=== PATIENT | female | born 1930 | race Caucasian/White ===

== ENCOUNTER → 2018-03-03 | Outpatient (CLI) | payer MEDICARE, BC ==
--- NOTE | 2018-03-03 10:04 | XR ---
EXAMINATION TYPE: XR chest 2V DATE OF EXAM: 03/03/2018 COMPARISON: NONE HISTORY: Shortness of breath TECHNIQUE: Frontal and lateral views of the chest are obtained. FINDINGS: Scattered senescent parenchymal changes noted. Hyperinflation compatible with COPD. Dual-lead pacer i n place. No evidence for infiltrate. No evidence for atelectasis. Heart size is stable.Mitral annular calcifications noted. Mediastinal structures are stable and grossly unremarkable. No evidence for hilar prominence. Degenerative changes dorsal spine. IMPRESSION: 1. No evidence for acute pulmonary disease.
[2018-03-03 10:18] LABS: Appearance,Urine Clear (Clear); Basophils % (A) 1 %; Bilirubin,Urine Negative (Negative); Blood,Urine Negative (Negative); Color,Urine Light Yellow; Eosinophils # (A) 0.2 k/uL (0-0.7); Eosinophils % (A) 3 %; Glucose,Urine (UA) Negative (Negative); HCT 34.6 % (34.0-46.0); HGB 10.9 gm/dL (11.4-16.0); Hypochromasia Slight; Ketones,Urine Negative (Negative); Leukocyte Esterase,Urine Negative (Negative); Lymphocytes # (A) 1.5 k/uL (1.0-4.8); Lymphocytes % (A) 20 %; MCH 29.2 pg (25.0-35.0); MCHC 31.4 g/dL (31.0-37.0); MCV 93.2 fL (80.0-100.0); Mean Platelet Volume 7.8; Monocytes # (A) 0.4 k/uL (0-1.0); Monocytes % (A) 5 %; Neutrophils # (A) 5.3 k/uL (1.3-7.7); Neutrophils % (A) 71 %; Nitrite,Urine Negative (Negative); Platelet Count 299 k/uL (150-450); Protein,Urine Negative (Negative); RBC 3.71 m/uL (3.80-5.40); RDW 14.4 % (11.5-15.5); Specific Gravity,Urine 1.008 (1.001-1.035); Urobilinogen,Urine <2.0 mg/dL (<2.0); WBC 7.5 k/uL (3.8-10.6)
[2018-03-03 10:19] LABS: Calcium 9.8 mg/dL (8.4-10.2); Potassium 4.6 mmol/L (3.5-5.1)
[2018-03-03 10:35] LABS: Partial Thromboplastin Time 22.6 sec (22.0-30.0); Prothrombin Time 9.9 sec (9.0-12.0)
== END | disposition home or self-care (01) ==
LOC: LABPAT 08:50
PROVIDERS: ATTEND Orthopaedic Surgery Orthopaedic Surgery of the Spine
DX: Z01.818 Encounter for other preprocedural examination (principal); M48.061 Spinal stenosis, lumbar region without neurogenic claudication; Z01.812 Encounter for preprocedural laboratory examination; Z95.0 Presence of cardiac pacemaker
CPT/HCPCS: 36415; 71046; 80048; 81003; 85025; 85610; 85730; 87070; 93005

== ENCOUNTER 2018-03-12 08:56 | Inpatient (IN) | payer MEDICARE, BC ==
[~2018-03-12 08:56] MED LIST: BACITRACIN 50,000 UNIT, POLYMYXIN B 500,000 UNIT in SODIUM CHLORIDE 0.9% IRRIGATIO 1,00... IRRIGATION ONE; LACTATED RINGERS 1,000 ML IV SCH; LIDOCAINE 1% 20 ML VIAL (10MG/ML) FOR IV START INTRADERMA PRN; MORPHINE SULFATE 4MG/4ML SYRG IV PRN; VANCOMYCIN 1,000 MG in SODIUM CHLORIDE 0.9% 250 ML IVPB ONE
[2018-03-12 09:46] LABS: Glucose,Whole Blood 133 mg/dL (75-99)
[2018-03-12] MEDS: ONDANSETRON 4 MG/2 ML VIAL IVP ONE ×2 (09:56→15:15)
--- NOTE | 2018-03-12 12:18 | CONS ---
CONSULTATION An 87-year-old white female that is having a lumbar laminectomy and decompression with internal laminar device T3-4 and L3-L4, L4-L5 with Dr. Quarles after having significant chronic continuous back pain. Her original back pain occurred from a compression fracture which she has suffered pain and disability for a good period of time. She even had rehab on an inpatient basis with this for several weeks. She was recovering well, but was on chronic pain medication and then due to confusion occurring with the use of her Duragesic for her pain and not controlled by other medications accordingly, she became confused to the point that we had to withdraw the medication. Unfortunately, she stayed in a chronic state of pain even with the additional use of occasional nonsteroidal anti-inflammatories and Ultram. She has a long-standing history of aortic insufficiency and pacemaker. She has had a CVA and unfortunately it was from a bleed so at that period of time with an occasional intermittent atrial fib, it was decided not to use Plavix or just basically use aspirin for prevention of further CVA. She has had a long-standing history of hypertension. Her coronary artery disease is related with aortic insufficiency. She has had GE reflux. She has had peptic ulcer disease previously. Her type 2 diabetes is of recent and it is cared for with metformin. She has not had any renal or hepatic disease or has had pulmonary disease. Her social history, she is a basic nonsmoker, nondrinker. 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 MEDICATIONS ARE: That of allopurinol 100 daily, atenolol 50 b.i.d., Tradjenta 5 mg daily, Lipitor 10 daily, Lasix 20 daily, metformin 1000 b.i.d., Prozac 20 b.i.d., terazosin 1 mg daily, potassium chloride 20 daily, lisinopril 20 daily, gabapentin 100 mg t.i.d., Colace 100 daily. Aspirin at this period of time is 325 mg b.i.d., occasional Tylenol twice a day, flecainide 50 mg twice a day. REVIEW OF SYSTEMS: EYES: Pupils, the patient sees well. ENT: She has poor hearing, but she has not have any throat or neck pain. NECK: She is not having neck pain. No problems swallowing. RESPIRATORY: No shortness of breath. No cough. No recent pneumonia. HEART: No palpitations but she does have a pacemaker for bradycardia. She also has a history of aortic insufficiency. GI: No hematemesis, melena or hematochezia. No nausea. Occasional constipation on Colace. NEUROMUSCULAR: Just weakness in her arms or legs and severe lower back pain with radicular pain into her back, which has been ongoing and relentless. CBC and complete metabolic profile has been within normal limits. Chest x-ray is negative and EKG is without acute changes. ASSESSMENT: 1. 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 2. Previous history of compression fracture which is healed but with occasional pain. 3. Longstanding history of aortic insufficiency, being watched by Cardiology at [facility]. 4. Hyperlipidemia. 5. Previous history of cerebrovascular accident, which has been stable. 6. Long-standing hypertension, which is now stable. 7. Intermittent atrial fibrillation. 8. Early dementia. PLAN: I talked with who was taking care of her mainly even though he did do the last evaluation. He feels that she is on moderate cardiac risks for postop complications, probably not secondary from ischemia with a recent negative stress test, but definitely from her aortic insufficiency. Also noted that she had a previous right bundle branch block that has just been noted. His thought processes and I agreed with him is due to her previous CVA. Also have not had , which was which was a bleed and peptic ulcer disease in the past that it would be better to keep her off long-term anticoagulants and just use aspirin twice a day. Follow her cardiac status at this time. She has been in sinus rhythm with no atrial fib. Will follow her accordingly. Postoperative prognosis will be guarded. MMODL / IJN: [id number] /
[2018-03-12] MEDS ORDERED: fentaNYL (PF) 50 MCG/ML 2 ML AMP ONE (12:26)
[2018-03-12] MEDS ORDERED: PROPOFOL 10 MG/ML 20 ML VIAL IV ONE (12:26)
[2018-03-12] MEDS ORDERED: SUCCINYLCHOLINE CHLORIDE 100 MG/5 ML SYR IV ONE (12:26)
[2018-03-12] MEDS ORDERED: LIDOCAINE 1% INJ 10MG/ML (20 ML MDV) ONE (12:26)
[2018-03-12] MEDS ORDERED: MIDAZOLAM 2 MG/2 ML VIAL ONE (12:26)
[2018-03-12] MEDS ORDERED: GELATIN SPONGE,ABSORB (LARGE) 1 EACH SPONGE TOPICAL ONE (12:45)
[2018-03-12] MEDS ORDERED: LIDOCAINE 0.5%-EPI 1:200,000 50 ML VIAL SQ ONE (12:45)
[2018-03-12] MEDS ORDERED: THROMBIN (BOVINE) 5,000 UNIT VIAL TOPICAL ONE (12:45)
[2018-03-12] MEDS ORDERED: methylPREDNISolone ACETATE 40 MG/ML 1 ML VIAL MISCELLANE ONE (13:17)
--- NOTE | 2018-03-12 14:03 | FL ---
Fluoroscopy INDICATION: Pain FINDINGS: Fluoroscopy time: 6 seconds. Images obtained: 1. IMPRESSIONS: 1. Documentation of fluoroscopy.
--- NOTE | 2018-03-12 14:03 | XR ---
Fluoroscopy INDICATION: Pain FINDINGS: Images obtained: 1. IMPRESSIONS: 1. Documentation of fluoroscopy.
[2018-03-12] MEDS ORDERED: ACETAMINOPHEN TAB 500 MG TAB PO PRN (14:24)
[2018-03-12] MEDS ORDERED: ONDANSETRON 4 MG/2 ML VIAL IVP PRN (14:31)
[2018-03-12] MEDS ORDERED: MORPHINE SULFATE 4MG/4ML SYRG IVP PRN (14:31)
[2018-03-12] MEDS ORDERED: MAGNESIUM HYDROXIDE 2,400 MG/10 ML CUP PO PRN (14:31)
[2018-03-12] MEDS ORDERED: DIAZEPAM 5 MG TAB PO PRN (14:31)
[2018-03-12] MEDS ORDERED: BENZOCAINE/MENTHOL LOZENG 1 EACH LOZENGE MUCOUS MEM PRN (14:31)
[2018-03-12] MEDS ORDERED: Acetaminophen-Codeine 300-30mg TAB PO PRN (14:35)
--- NOTE | 2018-03-12 14:41 | P.OP ---
Date of Procedure: 03/12/18 Preoperative Diagnosis: Severe spinal stenosis L3 4 L4 5 Degenerative disc disease L3 4 L4 5 Neurogenic claudication Lower extremity radiculopathy Postoperative Diagnosis: Same Anesthesia: GETA Pathology: none sent Condition: stable Disposition: PACU Description of Procedure: BRIEF OPERATIVE NOTE Preoperative Diagnosis: Severe spinal stenosis L3 4 L4 5, degenerative disc disease L3 4 L4 5, neurogenic claudication, lower extremity radiculopathy Postoperative Diagnosis: Same Procedure: Laminectomy and decompression with wide bilateral foraminotomies L3 4 and L4 5 Placement of the interlaminar stabilization device, Coflex device at L3 4 L4 5 Surgeon: Dr. Quarles Insole Lip Turner: Polo Suarez is present throughout the entire the case persistence during positioning, dissection, exposure, visualization, and all crucial elements of the case as well as closure. Anesthesia: General anesthesia per Dr. Dr. Zamarripa Estimated blood loss: approximately 50 mL Complications: None apparent Components implanted: Coflex interlaminar stabilization device L3 4 and L4-5, each measuring 10 mm Disposition: To recovery room in good stable condition. OPERATIVE INDICATIONS The patient has been having issues in their lower back and lower extremities. she is having severe claudication symptoms due to her severe spinal stenosis at her lumbar spine particularly at L3 4 and L4 5. We discussed various treatment options. The patient has been through conservative treatment. she is not having any prolonged benefit despite aggressive conservative treatment We discussed various treatment options including surgery, ranging from laminectomy alone to the possibility of decompression with stabilization as well as the decompression and fusion. We felt that the patient could benefit with decompression and interlaminar stabilization,and the patient wishes to proceed with surgery We discussed the risk, patient's alternatives and benefits of surgery including but not limited to, risk of bleeding risk of infection, risk of need for further surgery, risk of decreased, loss of motion, loss of function, nerve damage, paralysis, heart attack, blindness and . OPERATIVE SUMMARY After discussing all the risks, patient alternatives and benefits at length, the patient elected to proceed with surgical intervention, signed informed consent, and presented for their procedure. The patient was seen and examined in the preoperative holding area and the surgical site was marked. The patient was given antibiotics and brought to the operating room. The patient was sedated and intubated by anesthesia in standard fashion. The patient was positioned on to the operating room table in a prone position on the appropriate frame which was well-padded and well molded. We were careful to pad any bony prominences and pressure points. We were careful to maintain the patient's cervical spine and good neutral alignment and position throughout. The patient was prepped and draped in a normal standard fashion. An appropriate timeout and keystone protocol performed. We were able to proceed with the surgery. Fluoroscopy was utilized to establish the appropriate level. The local wound area was infiltrated with local anesthetic. An incision was made at the midline longitudinally over the appropriate levels at L3 4 and L4 5. Dissection was taken down subcutaneously to the level of the fascia which was split midline. Dissection was taken over the lamina. Intraoperative fluoroscopy was taken which showed a marker at the appropriate level at L3 4 . With the appropriate level positively confirmed, we were able to proceed with laminectomy. The wound was copiously irrigated and suctioned dry as had been done periodically throughout the case. I performed a laminectomy with a combination of curettes and a high-speed bur and Kerrison rongeurs. A small medial facetectomy was performed again further access. A partial foraminotomy was also performed. Portions of the ligamentum flavum were taken down to expose the dura and traversing nerve root. There is severe thickening of the ligamentum flavum and significant facet hypertrophy with osteophytes causing severe central and bilateral foraminal stenosis. This was remedied with the decompression.There is no evidence of dural tear or leak. Good hemostasis maintained. The wound was copiously irrigated and suctioned dry. Good decompression was noted. This was done first at L34 and L4 5. I was unable to measure the appropriate size interlaminar stabilizing device. I was able get good alignment at the intralaminar spaces. I was able to trial with the appropriate size device and get gentle distraction at each level. I chose he is appropriate size interlaminar stabilizer. The Coflex device was positioned and malleted in place and good alignment good position with good fixation at each level. The construct was checked and found to be stable. There is good decompression without any evidence of dural tear or leak. There is no evidence of fracture. We were able to proceed with closure. The fascia was closed for a watertight closure. The subcuticular tissue was closed with absorbable suture. The wound was cleaned and dried and dressed with the appropriate dressing. The drapes were broken down. The patient was gently rolled back onto their hospital bed being careful to maintain their cervical spine and good neutral alignment and position. They were woken up by anesthesia, extubated, and brought to the recovery room in good stable condition. The patient will be admitted to the hospital for observation and for appropriate postoperative care, medical management and monitoring. We will continue to follow them closely about the postoperative course.
[2018-03-12 15:01] LABS: Glucose,Whole Blood 121 mg/dL (75-99)
[2018-03-12 15:57] VITALS: BMI 25.3
[2018-03-12] MEDS: SODIUM CHLORIDE 0.9% 1,000 ML IV SCH (15:57)
[2018-03-12] MEDS: metFORMIN 500 MG TAB PO SCH (17:44)
[2018-03-12] MEDS: ceFAZolin IN SWFI 2 GM/20 ML SYRINGE IVP SCH ×2 (17:44→23:51)
[2018-03-12] MEDS: PANTOPRAZOLE 40 MG TABLET PO SCH (17:45)
[2018-03-12] MEDS: traMADol-ACETAMINOP 37.5-325MG 1 EACH TAB PO PRN (19:15)
[2018-03-12] MEDS: GABAPENTIN 100 MG CAP PO SCH (19:15)
[2018-03-12] MEDS: METOPROLOL TARTRATE 50 MG TAB PO SCH (19:15)
[2018-03-12] MEDS: FLECAINIDE 50 MG TAB PO SCH (19:15)
[2018-03-12] MEDS ORDERED: DOXAZOSIN 1 MG TAB PO SCH (21:00)
[2018-03-12] MEDS ORDERED: ATORVASTATIN 10 MG TAB PO SCH (21:00)
[2018-03-12] MEDS ORDERED: MORPHINE SULF 5MG/10ML VL IVP ONE (21:30)
[2018-03-13 04:46] VITALS: TEMP 98.7
[2018-03-13] MEDS: traMADol-ACETAMINOP 37.5-325MG 1 EACH TAB PO PRN (07:33)
[2018-03-13] MEDS: metFORMIN 500 MG TAB PO SCH (08:28)
[2018-03-13] MEDS: PANTOPRAZOLE 40 MG TABLET PO SCH (08:29)
[2018-03-13] MEDS: FLECAINIDE 50 MG TAB PO SCH (08:31)
[2018-03-13] MEDS: GABAPENTIN 100 MG CAP PO SCH (08:31)
[2018-03-13] MEDS: METOPROLOL TARTRATE 50 MG TAB PO SCH (08:32)
[2018-03-13] MEDS: SENNOSIDES-DOCUSATE SODIUM 1 EACH TAB PO SCH ×2 (08:33→08:39)
[2018-03-13] MEDS ORDERED: ALLOPURINOL 100 MG TAB PO SCH (09:00)
[2018-03-13] MEDS ORDERED: ASPIRIN 81 MG PO SCH (09:00)
[2018-03-13] MEDS ORDERED: POTASSIUM CHLORIDE ER 10 MEQ TAB.ER.PRT PO SCH (09:00)
[2018-03-13] MEDS ORDERED: LISINOPRIL 20 MG TAB PO SCH (09:00)
[2018-03-13] MEDS ORDERED: LINAGLIPTIN 5 MG TABLET PO SCH (09:00)
[2018-03-13] MEDS ORDERED: FUROSEMIDE 20 MG TAB PO SCH (09:00)
[2018-03-13 09:02] VITALS: BP 159/70; PULSE 69; RESP 18
--- NOTE | 2018-03-13 09:39 | P.DS ---
Providers Date of admission: 03/12/18 08:56 Attending physician: Yolanda Quarles Consults: 03/12/18 14:31 Consult Physician Routine Consulting Provider: Luisito Napoles Consult Reason/Comments: Medical management Do you want consulting provider notified?: Yes Primary care physician: Luisito Napoles Hospital Course: The patient presented on the day of admission as per her operative note. We had concerns about her being able to ambulate mobilize on her own and to be able to perform her own needs and the patient had be discharged to monitor her progress and her mobility as well as her pain control. The patient has been able to get up this morning and use a bathroom. Her pain was controlled adequately overnight with IV medications. We will try to convert over to oral medications this morning and she is doing adequately although these are not quite as effective for her. She feels her legs are doing well. She is having pain in her back as expected. She denies any chest pain short of breath Physical Exam The incision site is clean dry and intact. There is no erythema no drainage. There is no purulence no evidence of infection.There is no active drainage. Dressing has some shadowing but no saturation. Abdomen soft and nontender. Chest has good excursion with deep inspiration and expiration. The patient has active and passive range of motion intact at the upper and lower extremities. There is no acute change in neurologic status.She has sustained dorsal flexion plantarflexion and extensor hallucis longus intact Hospital Course postoperative day #1 status post decompression laminectomy with foraminotomy and partial facetectomy at L34 and L4 5 with placement of interlaminar stabilization at L3 4 and L4 5. The patient has been making good progress postoperatively. she is still moving somewhat slowly but has been able to get up to the bathroom. They have completed the prophylactic antibiotics without any signs or symptoms of infection. The patient has been able to advance their diet, and is tolerating diet adequately. The pain was initially controlled with IV medications and is now controlled appropriately with oral medications. if the patient continues to have adequate control with oral medications she may be able to be discharged home today as long as she is safe with her mobility and ambulation. The patient has been able to increase their mobilizationAdequately thus far . The patient has progressed appropriately. I think they are in good stable condition for discharge today If she continues to make progress with her pain control and her mobility she has been seen by Dr. flynn as well who is in agreement with this. . They will be sent home with appropriate prescriptions. I answered their questions to the best of my ability in a language that they can understand and they are agreeable with the plan. They will follow up as directed In approximately 2 weeks or sooner if she is having any problems. Patient Condition at Discharge: Good Plan - Discharge Summary Discharge Rx Participant: Yes New Discharge Prescriptions: No Action Linagliptin [Tradjenta] 5 mg PO DAILY Furosemide [Lasix] 20 mg PO DAILY Gabapentin [Neurontin] 100 - 200 mg PO BID Acetaminophen [Tylenol Extra Strength] 500 mg PO QID PRN PRN Reason: Pain Terazosin [Hytrin] 1 mg PO HS Allopurinol [Zyloprim] 100 mg PO DAILY metFORMIN HCL 1,000 mg PO BID Atorvastatin [Lipitor] 10 mg PO HS Metoprolol Tartrate [Lopressor] 50 mg PO BID Lisinopril [Zestril] 20 mg PO DAILY Flecainide [Tambocor] 50 mg PO Q12HR Potassium Chloride [K-Tab ER] 10 meq PO DAILY Omeprazole [PriLOSEC] 20 mg PO BID Multivitamins, Thera [Multivitamin (formulary)] 1 tab PO DAILY Aspirin [Adult Low Dose Aspirin EC] 81 mg PO DAILY Discharge Medication List Acetaminophen [Tylenol Extra Strength] 500 mg PO QID PRN 03/05/18 [History] Allopurinol [Zyloprim] 100 mg PO DAILY 03/05/18 [History] Aspirin [Adult Low Dose Aspirin EC] 81 mg PO DAILY 03/05/18 [History] Atorvastatin [Lipitor] 10 mg PO HS 03/05/18 [History] Flecainide [Tambocor] 50 mg PO Q12HR 03/05/18 [History] Furosemide [Lasix] 20 mg PO DAILY 03/05/18 [History] Gabapentin [Neurontin] 100 - 200 mg PO BID 03/05/18 [History] Linagliptin [Tradjenta] 5 mg PO DAILY 03/05/18 [History] Lisinopril [Zestril] 20 mg PO DAILY 03/05/18 [History] Metoprolol Tartrate [Lopressor] 50 mg PO BID 03/05/18 [History] Multivitamins, Thera [Multivitamin (formulary)] 1 tab PO DAILY 03/05/18 [History ] Omeprazole [PriLOSEC] 20 mg PO BID 03/05/18 [History] Potassium Chloride [K-Tab ER] 10 meq PO DAILY 03/05/18 [History] Terazosin [Hytrin] 1 mg PO HS 03/05/18 [History] metFORMIN HCL 1,000 mg PO BID 03/05/18 [History] Follow up Appointment(s)/Referral(s): Yolanda Quarles DO [Doctor of Osteopathic Medicine] - 2 Weeks Activity/Diet/Wound Care/Special Instructions: Keep site clean and dry. May shower with waterproof Tegaderm intact. Do not soak in a tub. May ambulate to tolerance. Avoid repetitive bending twisting or lifting. No heavy lifting. No rigorous activity.
[2018-03-13] MEDS: SODIUM CHLORIDE 0.9% 1,000 ML IV SCH (10:56)
[2018-03-13] MEDS ORDERED: MULTIVITAMINS, THERA 1 EACH TAB PO SCH (12:00)
--- NOTE | 2018-03-13 12:40 | P.PN ---
Subjective Progress Note Date: 03/13/18 Patient seen and examined at the bedside on rounds with Dr. Napoles. Patient underwent laminectomy and decompression and foraminotomy and partial facetectomy at L3-4 and L4-5 with placement of interlaminar stabilization at L3- 4 and L4-5. She is POD #1. She is laying in bed in no acute distress. She states her pain is tolerable this morning. She states she has been ambulating to the bathroom. Denies chest pain or shortness of breath. She is tolerating a regular diet. Denies nausea or vomiting. She is hemodynamically stable. Recent blood pressures: 142/68 and 159/70. Heart rate is in the 60s and 70s. Temperature this morning is 98.7. She is on room air with oxygen saturations greater than 92%. Objective - Vital Signs Vital signs: Vital Signs Temp 98.7 F 03/13/18 09:01 Pulse 69 03/13/18 09:01 Resp 18 03/13/18 09:01 BP 159/70 03/13/18 09:01 Pulse Ox 98 03/13/18 01:44 Intake & Output 03/12/18 03/13/18 03/13/18 18:59 06:59 18:59 Intake Total 901 550 Output Total 50 Balance 851 550 Weight 53.07 kg Intake: IV 901 Intake, IV Titration 350 Amount Sodium Chloride 0.9% 1, 350 000 ml @ 75 mls/hr IV . [id number] Rx#:[id number] Oral 200 Output: Estimated Blood Loss 50 Other: Voiding Method Toilet # Voids 2 - Exam GENERAL: This is a 87-year-old female in no apparent distress at the time of examination. Pleasant and cooperative. HEENT: Head is atraumatic, normocephalic. Pupils are equal, round, and reactive to light. Sclerae anicteric. Conjunctivae are clear. Mucus membranes of the mouth are moist. Neck is supple. RESPIRATORY: Clear to ausculation. No wheezes, rales, or rhonchi. No use of accessory muscles. Patient maintaining oxygen saturation greater than 92%. No chest wall tenderness is noted on palpation or with deep breathing. CARDIOVASCULAR: Regular rate and rhythm. S1 and S2 noted. No JVD noted. No S3 or S4 noted. GASTROINTESTINAL: No distention noted. Abdomen soft and round. Normal active bowel sounds auscultated x 4 quadrants. No pain or tenderness noted upon palpation. INTEGUMENTARY: Surgical site without signs of infection. No cyanosis. No jaundice. No rashes noted. No cellulitis noted. EXTREMITIES: 2+ peripheral pulses. No evidence of peripheral edema. No calf tenderness noted. NEUROLOGIC: Cranial nerves II-XII intact. PSYCHIATRIC: Awake, alert, and oriented X 3. Appropriate affect. Intact judgement and insight. 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 Moderate to severe aortic regurgitation, patient follows with manager french at History of permanent pacemaker insertion secondary to symptomatic bradycardia History of previous compression fracture which has since healed Paroxysmal atrial fibrillation History of previous cerebrovascular accident Hypertension Gastroesophageal reflux disease Hyperlipidemia Early dementia PLAN: Patient is stable for discharge from a medical standpoint for discharge when cleared by Dr. Quarles. She is to resume her previous home medications. Follow up with Dr. Napoles in 1 week. Nurse practitioner note has been reviewed by physician. Signing provider agrees with the documented findings, assessment, and plan of care.
[2018-03-13] MEDS ORDERED: HYDROmorphone 2 MG TAB PO PRN (13:01)
== END 2018-03-13 12:30 | disposition home or self-care (01) | DRG 520 ==
LOC: 2ORMAIN 08:56 → 5MS5E 14:16
PROVIDERS: ADMIT Orthopaedic Surgery Orthopaedic Surgery of the Spine; ATTEND Orthopaedic Surgery Orthopaedic Surgery of the Spine
PROC: 00NY0ZZ Release Lumbar Spinal Cord, Open Approach (ICD-10-PCS; principal; 2018-03-12 12:15)
PROC: 0SH004Z Insertion of Internal Fixation Device into Lumbar Vertebral Joint, Open Approach (ICD-10-PCS; principal; 2018-03-12 12:15)
DX: M48.062 Spinal stenosis, lumbar region with neurogenic claudication (principal); I48.0 Paroxysmal atrial fibrillation; E11.9 Type 2 diabetes mellitus without complications; F03.90 Unspecified dementia, unspecified severity, without behavioral disturbance, psychotic disturbance, mood disturbance, and anxiety; E78.5 Hyperlipidemia, unspecified; I10 Essential (primary) hypertension; I25.10 Atherosclerotic heart disease of native coronary artery without angina pectoris; I35.1 Nonrheumatic aortic (valve) insufficiency; K21.9 Gastro-esophageal reflux disease without esophagitis; G89.29 Other chronic pain; M51.16 Intervertebral disc disorders with radiculopathy, lumbar region; Z79.899 Other long term (current) drug therapy; Z86.73 Personal history of transient ischemic attack (TIA), and cerebral infarction without residual deficits; Z87.11 Personal history of peptic ulcer disease; Z95.0 Presence of cardiac pacemaker; Z82.49 Family history of ischemic heart disease and other diseases of the circulatory system; Z79.82 Long term (current) use of aspirin; Z79.84 Long term (current) use of oral hypoglycemic drugs
CPT/HCPCS: 72020; 86850; 86900; 86901

== ENCOUNTER 2018-10-22 09:32 | Day surgery (SDC) | payer MEDICARE, BC ==
[2018-10-15 08:35] VITALS: BMI 26.1
[~2018-10-22 09:32] MED LIST changes: -BACITRACIN 50,000 UNIT, POLYMYXIN B 500,000 UNIT in SODIUM CHLORIDE 0.9% IRRIGATIO 1,00... IRRIGATION ONE; +DEXAMETHASONE SOD PHOSPHATE 10 MG/ML 1 ML VIAL IV ONE; +DEXAMETHASONE SOD PHOSPHATE 4 MG/ML 1 ML VIAL IV ONE; +FAMOTIDINE 20 MG/2 ML VIAL IV ONE; +HYDROmorphone 1 MG/ML 1 ML SYRINGE IVP PRN; -LIDOCAINE 1% 20 ML VIAL (10MG/ML) FOR IV START INTRADERMA PRN; +MIDAZOLAM 2 MG/2 ML VIAL IV PRN; -MORPHINE SULFATE 4MG/4ML SYRG IV PRN; +ONDANSETRON 4 MG/2 ML VIAL IVP ONE; -VANCOMYCIN 1,000 MG in SODIUM CHLORIDE 0.9% 250 ML IVPB ONE; +ceFAZolin 1,000 MG in DEXTROSE/WATER 1 50ML.BAG IV ONE
[2018-10-22 10:08] VITALS: TEMP 98
[2018-10-22 10:13] LABS: Glucose,Whole Blood 117 mg/dL (75-99)
[2018-10-22] MEDS ORDERED: LIDOCAINE 1% 20 ML VIAL (10MG/ML) FOR IV START INTRADERMA ONE (11:14)
[2018-10-22] MEDS ORDERED: PROPOFOL 10 MG/ML 20 ML VIAL IV ONE (12:18)
[2018-10-22] MEDS ORDERED: fentaNYL (PF) 50 MCG/ML 2 ML AMP ONE (12:18)
[2018-10-22] MEDS ORDERED: LIDOCAINE 1%-EPI 1:100,000 20 ML VIAL SQ ONE (12:36)
--- NOTE | 2018-10-22 13:19 | P.OP ---
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 This was excised in August and returned as a well-differentiated squamous cell carcinoma with a positive lateral margin with surrounding actinic keratosis. Recommended a revision surgery to obtain negative margins. Operative Findings: Left lower lip cicatrix in the mucosa as well as minimally the skin just inferior to the vermilion border, frozen section was negative for malignancy on the margins Description of Procedure: The patient was brought in the operative suite and placed in a supine position. The patient underwent induction of IV sedation after appropriate monitors were placed by the wire wrapper machine operator. The patient was prepped and draped in usual aseptic fashion. 1% lidocaine with 1-100,000 epinephrine was infused subcutaneously and submucosally left lower lip. A wedge excision was fashioned surrounding the previous scar and was carried sharply through the skin and subcutaneous tissue as well as on the mucosal aspect of the lip the mucosa and submucosa. This was carried down into the muscular layer. Hemostasis was gained with electrocautery. The specimen sent for frozen section above noted negative margins. Wound was closed in complex fashion as were multiple layers and this required rotation of tissue. The wound closure. The muscular and submucosal/subcutaneous tissues were closed with inverted interrupted 4-0 Vicryl suture. The mucosa was closed with 4-0 Vicryl suture the vermilion border and cutaneous wound edges were closed with simple interrupted 5-0 Prolene suture. Bacitracin ointment and sterile dressing were placed. Excellent hemostasis noted. The patient was transferred postoperative recovery area in satisfactory condition awake and alert.
[2018-10-22 13:36] VITALS: RESP 18
[2018-10-22 14:18] VITALS: BP 182/70; PULSE 68
== END 2018-10-22 14:41 | disposition home or self-care (01) ==
LOC: OR 09:32
PROVIDERS: ATTEND Otolaryngology
DX: C44.02 Squamous cell carcinoma of skin of lip (principal); I10 Essential (primary) hypertension; E78.5 Hyperlipidemia, unspecified; Z86.73 Personal history of transient ischemic attack (TIA), and cerebral infarction without residual deficits; K21.9 Gastro-esophageal reflux disease without esophagitis; E11.9 Type 2 diabetes mellitus without complications; Z79.84 Long term (current) use of oral hypoglycemic drugs; I11.9 Hypertensive heart disease without heart failure; Z95.0 Presence of cardiac pacemaker; Z79.899 Other long term (current) drug therapy; Z79.82 Long term (current) use of aspirin
CPT/HCPCS: 88305; 88331; 40525; J1100; J2405; J3010; J0690; J2704

== ENCOUNTER → 2019-04-03 | Outpatient (CLI) | payer MEDICARE, BC ==
--- NOTE | 2019-04-03 09:40 | US ---
EXAMINATION TYPE: US kidneys/renal and bladder DATE OF EXAM: 04/03/2019 COMPARISON: NONE CLINICAL HISTORY: N18.3 STAGE 3 CKD. EXAM MEASUREMENTS: Right Kidney: 10.0 x 3.9 x 3.9 cm Left Kidney: 9.8 x 4.6 x 4.6 cm Right Kidney: No hydronephrosis or masses seen Left Kidney: lower pole exophytic cyst measures 1.5 x 1.3 x 1.6 cm. Bladder: wnl Bilateral Jets seen: Yes There is no evidence for hydronephrosis at this point in time. No nephrolithiasis is seen. No solid masses are identified. The urinary bladder is anechoic. Bilateral ureteral jets are seen. IMPRESSION: Exophytic cystic lesion lower pole left kidney. Otherwise unremarkable study.
[2019-04-03 10:09] LABS: Anisocytosis Slight; Basophils % (A) 1 %; Eosinophils # (A) 0.3 k/uL (0-0.7); Eosinophils % (A) 5 %; HCT 38.8 % (34.0-46.0); HGB 12.1 gm/dL (11.4-16.0); Hypochromasia Slight; Lymphocytes % (A) 29 %; MCH 27.8 pg (25.0-35.0); MCHC 31.2 g/dL (31.0-37.0); Mean Platelet Volume 7.5; Monocytes # (A) 0.3 k/uL (0-1.0); Monocytes % (A) 5 %; Neutrophils % (A) 58 %; Platelet Count 262 k/uL (150-450); RBC 4.36 m/uL (3.80-5.40); RDW 16.4 % (11.5-15.5); WBC 6.9 k/uL (3.8-10.6)
[2019-04-03 10:13] LABS: Appearance,Urine Clear (Clear); Bilirubin,Urine Negative (Negative); Blood,Urine Negative (Negative); Color,Urine Colorless; Glucose,Urine (UA) Negative (Negative); Ketones,Urine Negative (Negative); Leukocyte Esterase,Urine Negative (Negative); Nitrite,Urine Negative (Negative); Protein,Urine Negative (Negative); Specific Gravity,Urine 1.005 (1.001-1.035); Urobilinogen,Urine <2.0 mg/dL (<2.0)
[2019-04-03 10:17] LABS: Albumin 4.3 g/dL (3.5-5.0); Phosphorus 4.3 mg/dL (2.5-4.5); Potassium 5.8 mmol/L (3.5-5.1); Uric Acid 5.4 mg/dL (3.7-7.4)
[2019-04-03 10:39] LABS: Creatinine,Urine Random 21.2 mg/dL
[2019-04-03 17:20] LABS: Parathyroid Hormone Intact 133.7 pg/mL (14.0-72.0)
[2019-04-03 18:25] LABS: Protein, Total 6.3 g/dL (6.2-8.2)
[2019-04-03 19:03] LABS: Iron Saturation 12.78 (12.00-45.00)
[2019-04-03 19:12] LABS: Vitamin D 25 Hydroxy 23.5 ng/mL (30.0-100.0)
[2019-04-06 12:51] LABS: Albumin 3.76 g/dL (3.80-4.90); Gamma Globulin 0.64 g/dL (0.70-1.50)
== END | disposition home or self-care (01) ==
LOC: RADUSWWP 08:53
PROVIDERS: ATTEND Internal Medicine Nephrology
DX: N28.1 Cyst of kidney, acquired (principal); N18.3 Chronic kidney disease, stage 3 (moderate); E55.9 Vitamin D deficiency, unspecified; E25.8 Other adrenogenital disorders; M10.9 Gout, unspecified; D63.1 Anemia in chronic kidney disease; R80.9 Proteinuria, unspecified
CPT/HCPCS: 76770; 80048; 81003; 82040; 82306; 82570; 82728; 83540; 83550; 83735; 83970; 84100; 84156; 84165; 84550; 85025; 86335

== ENCOUNTER → 2019-04-10 | Outpatient (CLI) | payer MEDICARE, BC ==
[2019-04-10 16:34] LABS: Anion Gap 9.4 mmol/L (4.00-12.00); Calcium 9.4 mg/dL (8.7-10.3); Carbon Dioxide 27.6 mmol/L (21.6-31.8); Potassium 4.8 mmol/L (3.5-5.5)
== END ==
LOC: LABWHC1 08:35
PROVIDERS: ATTEND Nurse Practitioner Family
DX: N18.3 Chronic kidney disease, stage 3 (moderate) (principal)
CPT/HCPCS: 36415; 80048

== ENCOUNTER → 2019-05-04 | Outpatient (CLI) | payer MEDICARE, BC ==
[2019-05-04 16:53] LABS: African American GFR (CKD) 46.7 (60.0-200.0); Anion Gap 9.3 mmol/L (4.00-12.00); BUN/Creat Ratio 29.17 Ratio (12.00-20.00); Calcium 9.7 mg/dL (8.7-10.3); Carbon Dioxide 26.7 mmol/L (21.6-31.8); Potassium 4.6 mmol/L (3.5-5.5)
== END | disposition home or self-care (01) ==
LOC: LABWHC1 08:47
PROVIDERS: ATTEND Internal Medicine Nephrology
DX: N18.3 Chronic kidney disease, stage 3 (moderate) (principal)
CPT/HCPCS: 36415; 80048

== ENCOUNTER 2019-06-23 12:03 | Emergency (ER) | payer MEDICARE, BC ==
[2019-06-23 12:08] VITALS: RESP 18
--- NOTE | 2019-06-23 12:24 | ED ---
General Adult HPI - General Chief complaint: Fall Stated complaint: Fall Time Seen by Provider: 06/23/19 12:12 Source: patient Mode of arrival: ambulatory Limitations: no limitations - History of Present Illness Initial comments: Dictation was produced using [employer] dictation software. please excuse any grammatical, word or spelling errors. Chief Complaint: 89-year-old female presents with head injury and right upper extremity injury. History of Present Illness: 81-year-old female she reports that she has multiple comorbidities. She states that she was bending down to fix her shoe when she lost balance causing her to fall 4. She states she struck her head on the wall and landed on her right arm. Patient noted some immediate bruising and pain to her right upper extremity. Patient denies any numbness or paresthesias to right upper extremity. Denies any blood thinners. However she is not confident on with her daily medications are. No other complaints. The ROS documented in this emergency department record has been reviewed and confirmed by me. Those systems with pertinent positive or negative responses have been documented in the HPI. All other systems are other negative and/or noncontributory. PHYSICAL EXAM: General Impression: Alert and oriented x3, acute distress secondary to pain HEENT: Ecchymoses over the right forehead, extra-ocular movements intact, pupils equal and reactive to light bilaterally, mucous membranes moist. Cardiovascular: Heart regular rate and rhythm, S1&S2 audible, no murmurs, rubs or gallops Chest: Lungs clear to auscultation bilaterally, no rhonchi, no wheeze, no rales Abdomen: Bowel sounds present, abdomen soft, non-tender, non-distended, no organomegaly Musculoskeletal: Pulses present and equal in all extremities, no peripheral edema Right upper extremity: Ecchymoses to the anterior right shoulder. Motor: no focal deficits noted Neurological: CN II-XII grossly intact, no focal motor or sensory deficits noted Skin: Intact with no visualized rashes Psych: Normal affect and mood ED course: 89 yo female presents with right arm injury and head injury status post signs upon arrival are within acceptable limits. Return evaluation obtained. Mild leukocytosis 11.9. No other acute processes. Coag panel unremarkable. Metabolic panel is negative. Computed tomography scan of the head and C-spine unremarkable. Chest x-ray and pelvis x-rays negative. Shoulder x-ray shows impacted humerus head fracture. Patient in stable medical condition she is placed in sling. Patient given follow-up with orthopedic surgery. She given prescription for by mouth analgesia when necessary severe pain. EKG interpretation: Ventricular rate 61, atrial sense ventricular paced rhythm,. Interval to 60, Fatimah 2, QTc 519. No GA prolongation, no QTC prolongation, no ST or T-wave changes noted. Overall, this EKG is unremarkable - Related Data Home Medications Medication Instructions Recorded Confirmed Acetaminophen [Tylenol Extra 500 mg PO BID 03/05/18 06/23/19 Strength] Allopurinol [Zyloprim] 100 mg PO DAILY 03/05/18 06/23/19 Aspirin [Adult Low Dose Aspirin EC] 325 mg PO DAILY 03/05/18 06/23/19 Atorvastatin [Lipitor] 10 mg PO HS 03/05/18 06/23/19 Flecainide [Tambocor] 50 mg PO Q12HR 03/05/18 06/23/19 Furosemide [Lasix] 20 mg PO DAILY 03/05/18 06/23/19 Gabapentin [Neurontin] 100 - 200 mg PO BID 03/05/18 06/23/19 Linagliptin [Tradjenta] 5 mg PO DAILY 03/05/18 06/23/19 Lisinopril [Zestril] 20 mg PO QAM 03/05/18 06/23/19 Metoprolol Tartrate [Lopressor] 50 mg PO BID 03/05/18 06/23/19 Potassium Chloride [K-Tab ER] 10 meq PO DAILY 03/05/18 06/23/19 Terazosin [Hytrin] 1 mg PO HS 03/05/18 06/23/19 Previous Rx's Medication Instructions Recorded Acetaminophen-Codeine 300-30mg 1 tab PO Q6H PRN 3 Days #12 tablet 06/23/19 [Tylenol w/codeine #3] Allergies Allergy/AdvReac Type Severity Reaction Status Date / Time No Known Allergies Allergy Verified 06/23/19 13:44 Review of Systems ROS Statement: Those systems with pertinent positive or pertinent negative responses have been documented in the HPI. ROS Other: All systems not noted in ROS Statement are negative. Past Medical History Past Medical History: Coronary Artery Disease (CAD), Hypertension Additional Past Medical History / Comment(s): varicose veins, constipation/diarrhea, "slow heart rate" History of Any Multi-Drug Resistant Organisms: None Reported Past Surgical History: Cholecystectomy, Pacemaker Additional Past Surgical History / Comment(s): nahid cataracts Past Anesthesia/Blood Transfusion Reactions: No Reported Reaction Type of Cardiac Device: Permanent Pacemaker Device Placement Date:: 2011 Past Psychological History: No Psychological Hx Reported Smoking Status: Never smoker Past Alcohol Use History: None Reported Past Drug Use History: None Reported - Past Family History Mother Family Medical History: No Reported History Brother(s) Family Medical History: Cancer Sister(s) Family Medical History: Cancer General Exam Limitations: no limitations Course Vital Signs 06/23/19 12:05 Temperature 98.6 F Pulse Rate 68 Respiratory 18 Rate Blood Pressure 150/62 O2 Sat by Pulse 97 Oximetry Medical Decision Making - Lab Data Result diagrams: 06/23/19 13:22 06/23/19 13:22 Lab Results 06/23/19 06/23/19 06/23/19 Range/Units 13:22 13:22 13:22 WBC 11.9 H (3.8-10.6) k/uL RBC 4.16 (3.80-5.40) m/uL Hgb 12.7 (11.4-16.0) gm/dL Hct 39.9 (34.0-46.0) % MCV 96.0 (80.0-100.0) fL MCH 30.6 (25.0-35.0) pg MCHC 31.9 (31.0-37.0) g/dL RDW 16.0 H (11.5-15.5) % Plt Count 231 (150-450) k/uL Neutrophils % 84 % Lymphocytes % 11 % Monocytes % 4 % Eosinophils % 0 % Basophils % 0 % Neutrophils # 9.9 H (1.3-7.7) k/uL Lymphocytes # 1.3 (1.0-4.8) k/uL Monocytes # 0.5 (0-1.0) k/uL Eosinophils # 0.0 (0-0.7) k/uL Basophils # 0.1 (0-0.2) k/uL Anisocytosis Slight PT 9.5 (9.0-12.0) sec INR 0.9 (<1.2) Sodium 142 (137-145) mmol/L Potassium 4.6 (3.5-5.1) mmol/L Chloride 105 (98-107) mmol/L Carbon Dioxide 28 (22-30) mmol/L Anion Gap 9 mmol/L BUN 27 H (7-17) mg/dL Creatinine 1.02 (0.52-1.04) mg/dL Est GFR (CKD-EPI)AfAm 57 (>60 ml/min/1.73 sqM) Est GFR (CKD-EPI)NonAf 50 (>60 ml/min/1.73 sqM) Glucose 150 H (74-99) mg/dL Calcium 9.8 (8.4-10.2) mg/dL Disposition Clinical Impression: Fall, Humerus fracture Disposition: HOME SELF-CARE Condition: Good Instructions (If sedation given, give patient instructions): Fall Prevention for Older Adults (ED), Arm Fracture in Adults (ED) Prescriptions: Acetaminophen-Codeine 300-30mg [Tylenol w/codeine #3] 1 tab PO Q6H PRN 3 Days #12 tablet PRN Reason: Pain Is patient prescribed a controlled substance at d/c from ED?: No Referrals: Dk Patterson MD [STAFF PHYSICIAN] - 1-2 days Time of Disposition: 14:47
[2019-06-23] MEDS ORDERED: oxyCODONE-APAP 7.5-325MG 1 EACH TAB PO STA (12:28)
[2019-06-23 13:38] LABS: Anisocytosis Slight; Basophils # (A) 0.1 k/uL (0-0.2); Basophils % (A) 0 %; Eosinophils % (A) 0 %; HCT 39.9 % (34.0-46.0); HGB 12.7 gm/dL (11.4-16.0); Lymphocytes # (A) 1.3 k/uL (1.0-4.8); Lymphocytes % (A) 11 %; MCH 30.6 pg (25.0-35.0); MCHC 31.9 g/dL (31.0-37.0); Mean Platelet Volume 7.5; Monocytes # (A) 0.5 k/uL (0-1.0); Monocytes % (A) 4 %; Neutrophils # (A) 9.9 k/uL (1.3-7.7); Neutrophils % (A) 84 %; Platelet Count 231 k/uL (150-450); RBC 4.16 m/uL (3.80-5.40); WBC 11.9 k/uL (3.8-10.6)
[2019-06-23 13:46] LABS: INR 0.9 (<1.2); Prothrombin Time 9.5 sec (9.0-12.0)
[2019-06-23 13:53] LABS: Calcium 9.8 mg/dL (8.4-10.2); Potassium 4.6 mmol/L (3.5-5.1)
--- NOTE | 2019-06-23 14:32 | CT ---
EXAMINATION TYPE: CT brain cspine wo con DATE OF EXAM: 06/23/2019 COMPARISON: HISTORY: Fall CT DLP: 1204.8 mGycm Automated exposure control for dose reduction was used. TECHNIQUE: CT scan of the head and cervical spine are performed without contrast. FINDINGS: There is no acute intracranial hemorrhage, mass effect, or midline shift identified. The ventricles and sulci are within normal limits in size. The globes are intact and the visualized sin uses are clear. Cortical atrophy is present, periventricular white matter shows patchy low attenuatio n. Cervical spine is visualized in its entirety from C1 through upper thoracic levels and demonstrates n ear anatomic alignment with minimal anterolisthesis grade 1 C2-3, C3-4, retrolisthesis grade 1 C5-6 w ithout evidence of acute fracture or dislocation. Multilevel facet arthropathy changes present. Prev ertebral soft tissue appears within normal limits. Biapical pleural scarring is present. The C1-C2 ar ticulation is unremarkable. There is multilevel spondylosis, loss of disc height at the interverteb ral levels compatible degenerative disc disease. IMPRESSION: 1. There is no acute fracture or dislocation evident in the cervical spine. 2. No acute intracranial hemorrhage, mass effect, or midline shift is seen.
--- NOTE | 2019-06-23 14:34 | XR ---
Right shoulder and right humerus HISTORY: Trauma and pain 3 views of the right shoulder, 2 views of the right humerus submitted. There is a comminuted possible humeral fracture with impaction, displaced fracture fragments. No evid ent dislocation although there may be slight widening of the glenohumeral joint. Right lung apex as v isualized is normal. Pacemaker leads are noted incidentally. IMPRESSION: There is comminuted right humeral head action.
--- NOTE | 2019-06-23 14:36 | XR ---
EXAMINATION TYPE: XR chest 1V portable DATE OF EXAM: 06/23/2019 COMPARISON: 03/13/2018 HISTORY: Chest pain after fall TECHNIQUE: Single frontal view of the chest is obtained. FINDINGS: Cardiomediastinal silhouette is enlarged with dual lead left-sided cardiac device. No pneu mothorax is seen. No focal consolidation, pleural effusion or pulmonary vascular congestion. There is a transverse fracture of the right proximal humerus new from the prior 03/03/2018. This does appear ac [place]. Correlate with trauma and pain. Diffuse osseous demineralization is seen. IMPRESSION: 1. Transverse right proximal humeral fracture is new from the prior 03/13/2018 and appears acute. Abel elate with trauma and pain. 2. No acute cardiopulmonary pathology.
--- NOTE | 2019-06-23 14:38 | XR ---
EXAMINATION TYPE: XR pelvis AP view DATE OF EXAM: 06/23/2019 CLINICAL HISTORY: Pelvic pain after fall TECHNIQUE: A single AP view of the pelvis is obtained. COMPARISON: None. FINDINGS: There is no acute fracture/dislocation evident in the pelvis. There is diffuse osseous dem ineralization. Postsurgical changes of the lumbosacral junction. The hip and sacroiliac joints appear symmetric with mild degenerative change. The overlying soft tissue appears unremarkable. IMPRESSION: There is no acute fracture or dislocation in the pelvis.
[2019-06-23 15:18] VITALS: BP 147/78; PULSE 70; TEMP 97.9
== END 2019-06-23 15:08 | disposition home or self-care (01) ==
LOC: EC 12:03
DX: S42.201A Unspecified fracture of upper end of right humerus, initial encounter for closed fracture (principal); I10 Essential (primary) hypertension; Z79.82 Long term (current) use of aspirin; Z79.899 Other long term (current) drug therapy; Z95.0 Presence of cardiac pacemaker; W01.198A Fall on same level from slipping, tripping and stumbling with subsequent striking against other object, initial encounter
CPT/HCPCS: 36415; 70450; 71045; 72125; 72170; 80048; 85025; 85610; 93005; 99284

== ENCOUNTER → 2019-08-05 | Outpatient (CLI) | payer MEDICARE, BC ==
[2019-08-05 09:51] LABS: Basophils # (A) 0.1 k/uL (0-0.2); Basophils % (A) 1 %; Eosinophils # (A) 0.3 k/uL (0-0.7); Eosinophils % (A) 4 %; HGB 12.7 gm/dL (11.4-16.0); Lymphocytes # (A) 2.4 k/uL (1.0-4.8); Lymphocytes % (A) 27 %; MCH 30.9 pg (25.0-35.0); MCHC 31.7 g/dL (31.0-37.0); MCV 97.4 fL (80.0-100.0); Mean Platelet Volume 7.3; Monocytes # (A) 0.5 k/uL (0-1.0); Monocytes % (A) 6 %; Neutrophils # (A) 5.1 k/uL (1.3-7.7); Neutrophils % (A) 58 %; Platelet Count 249 k/uL (150-450); RBC 4.11 m/uL (3.80-5.40); RDW 14.9 % (11.5-15.5); WBC 8.8 k/uL (3.8-10.6)
[2019-08-05 09:52] LABS: Appearance,Urine Clear (Clear); Bilirubin,Urine Negative (Negative); Blood,Urine Trace (Negative); Color,Urine Light Yellow; Glucose,Urine (UA) Negative (Negative); Hyaline Casts,Urine 6 /lpf (0-2); Ketones,Urine Negative (Negative); Leukocyte Esterase,Urine Negative (Negative); Mucus,Urine Rare /hpf; Nitrite,Urine Negative (Negative); Protein,Urine Negative (Negative); RBC,Urine 2 /hpf (0-5); Specific Gravity,Urine 1.007 (1.001-1.035); Squamous Epithelial Cell,Urine <1 /hpf (0-4); Urobilinogen,Urine <2.0 mg/dL (<2.0); WBC,Urine 1 /hpf (0-5)
[2019-08-05 16:55] LABS: Iron Saturation 30.33 (12.00-45.00)
[2019-08-05 17:04] LABS: Vitamin D 25 Hydroxy 32.5 ng/mL (30.0-100.0)
[2019-08-05 17:10] LABS: African American GFR (CKD) 58.3 (60.0-200.0); Albumin 4.1 g/dL (3.80-4.90); Anion Gap 9.2 mmol/L (4.00-12.00); Calcium 9.7 mg/dL (8.7-10.3); Carbon Dioxide 24.8 mmol/L (21.6-31.8); Magnesium 1.9 mg/dL (1.5-2.4); Phosphorus 3.9 mg/dL (2.4-5.1); Potassium 4.5 mmol/L (3.5-5.5); Uric Acid 5.7 mg/dL (2.9-7.7)
[2019-08-05 18:37] LABS: Creatinine,Urine Random 16.7 mg/dL
[2019-08-05 18:39] LABS: Total Protein,Urine Random 4.2 mg/dL (0.0-13.5)
== END | disposition home or self-care (01) ==
LOC: LABWHC1 09:01
PROVIDERS: ATTEND Internal Medicine Nephrology
DX: N18.3 Chronic kidney disease, stage 3 (moderate) (principal); E61.1 Iron deficiency; E55.9 Vitamin D deficiency, unspecified; N39.0 Urinary tract infection, site not specified; M10.9 Gout, unspecified
CPT/HCPCS: 36415; 80048; 81001; 82040; 82306; 82570; 82728; 83540; 83550; 83735; 83970; 84100; 84156; 84550; 85025

== ENCOUNTER 2020-06-12 19:54 | Inpatient (IN) | payer MEDICARE, BC ==
[2020-06-12] MEDS ORDERED: SODIUM CHLORIDE 0.9% 500 ML 500 ML IV ONE (20:25)
--- NOTE | 2020-06-12 20:51 | ED ---
General Adult HPI <AdolfoNadir - Last Filed: 06/12/20 22:29> - General Source: patient, family Mode of arrival: wheelchair Limitations: no limitations <Fatimah Nino - Last Filed: 06/12/20 22:33> - General Chief complaint: Altered Mental Status Stated complaint: confusion/fall Time Seen by Provider: 06/12/20 20:10 - History of Present Illness Initial comments: 89-year-old female patient presents to the emergency department today for evaluation of altered mental status and pain after fall. Family member who is present states the patient and it has been exhibiting some confusion since Saturday. States that she has not been following directions very well and has been slow to respond. States that she did have a fall this morning. Patient is complaining of left shoulder, left-sided abdominal, and left knee pain from the fall. She is unsure if she hit her head. She is reporting neck pain. Denies numbness or tingling to the extremities. She denies any chest pain or shortness of breath. Denies any current headache, blurred vision, or double vision. Patient denies any recent rash, fever, chills, cough, nausea, vomiting, diarrhea, constipation, back pain, dizziness, weakness, hematuria, dysuria, urinary urgency, urinary frequency, or any other complaints. (Fatimah Nino) - Related Data Home Medications Medication Instructions Recorded Confirmed RX: Acetaminophen [Tylenol Extra 500 mg PO BID 03/05/18 06/23/19 Strength] RX: Allopurinol [Zyloprim] 100 mg PO DAILY 03/05/18 06/23/19 RX: Aspirin [Adult Low Dose 325 mg PO DAILY 03/05/18 06/23/19 Aspirin EC] RX: Atorvastatin [Lipitor] 10 mg PO HS 03/05/18 06/23/19 RX: Flecainide [Tambocor] 50 mg PO Q12HR 03/05/18 06/23/19 RX: Furosemide [Lasix] 20 mg PO DAILY 03/05/18 06/23/19 RX: Gabapentin [Neurontin] 100 - 200 mg PO BID 03/05/18 06/23/19 RX: Linagliptin [Tradjenta] 5 mg PO DAILY 03/05/18 06/23/19 RX: Lisinopril [Zestril] 20 mg PO QAM 03/05/18 06/23/19 RX: Metoprolol Tartrate [Lopressor] 50 mg PO BID 03/05/18 06/23/19 RX: Potassium Chloride [K-Tab ER] 10 meq PO DAILY 03/05/18 06/23/19 RX: Terazosin [Hytrin] 1 mg PO HS 03/05/18 06/23/19 Previous Rx's Medication Instructions Recorded Acetaminophen-Codeine 300-30mg 1 tab PO Q6H PRN 3 Days #12 tablet 06/23/19 [Tylenol w/codeine #3] Allergies Allergy/AdvReac Type Severity Reaction Status Date / Time simvastatin [From Zocor] Allergy Unknown Verified 06/12/20 20:09 Review of Systems ROS Other: All systems not noted in ROS Statement are negative. <Nadir Mata - Last Filed: 06/12/20 22:29> ROS Other: All systems not noted in ROS Statement are negative. <Fatimah Nino - Last Filed: 06/12/20 22:33> ROS Statement: Those systems with pertinent positive or pertinent negative responses have been documented in the HPI. Past Medical History Past Medical History: Coronary Artery Disease (CAD), Hypertension Additional Past Medical History / Comment(s): varicose veins, constipation/diarrhea, "slow heart rate" History of Any Multi-Drug Resistant Organisms: None Reported Past Surgical History: Cholecystectomy, Pacemaker Additional Past Surgical History / Comment(s): nahid cataracts Past Anesthesia/Blood Transfusion Reactions: No Reported Reaction Type of Cardiac Device: Permanent Pacemaker Device Placement Date:: 2011 Past Psychological History: No Psychological Hx Reported Past Alcohol Use History: None Reported Past Drug Use History: None Reported - Past Family History Mother Family Medical History: No Reported History Brother(s) Family Medical History: Cancer Sister(s) Family Medical History: Cancer <Fatimah Nino - Last Filed: 06/12/20 22:33> General Exam Limitations: no limitations General appearance: alert, in no apparent distress, other (This is a well- developed, well-nourished elderly female patient in no acute distress. Vital signs upon presentation are temperature 98.0F, pulse 71, respirations 18, blood pressure 1020 49, pulse ox 97% on room air.) Eye exam: Present: normal appearance, PERRL, EOMI. Absent: scleral icterus, conjunctival injection, periorbital swelling ENT exam: Present: normal exam, normal oropharynx, mucous membranes moist Neck exam: Present: normal inspection, tenderness (Tenderness over the mid cervical spine), full ROM. Absent: meningismus, lymphadenopathy Respiratory exam: Present: normal lung sounds bilaterally. Absent: respiratory distress, wheezes, rales, rhonchi, stridor Cardiovascular Exam: Present: regular rate, normal rhythm, normal heart sounds. Absent: systolic murmur, diastolic murmur, rubs, gallop, clicks GI/Abdominal exam: Present: soft, tenderness (Left lower quadrant tenderness), normal bowel sounds. Absent: distended, guarding, rebound, rigid Extremities exam: Present: normal inspection, full ROM, tenderness (Left anterior knee), normal capillary refill, other (Skin the left leg is pink, warm, dry. Cap refills less than 3 seconds. Pedal and posttibial pulses are 2+ and equal bilaterally. Shoulder appears normal, no surface trauma. Skin to the left arm is pink, warm, and dry. Cap refills less than 3 seconds. Radial pulses are 2+ and equal bilaterally.). Absent: pedal edema, joint swelling, calf tenderness Back exam: Present: normal inspection. Absent: vertebral tenderness Neurological exam: Present: alert, CN II-XII intact. Absent: oriented X3 (Oriented times 2) Psychiatric exam: Present: normal affect, normal mood Skin exam: Present: warm, dry, intact, normal color. Absent: rash <Fatimah Nino - Last Filed: 06/12/20 22:33> Course Vital Signs 06/12/20 06/12/20 20:01 22:10 Temperature 98.0 F Pulse Rate 71 65 Respiratory 18 17 Rate Blood Pressure 102/49 116/47 O2 Sat by Pulse 97 97 Oximetry EKG Findings - EKG Comments: EKG Findings:: EKG obtained at 2032 shows atrial sensed ventricular paced rhythm with a prolonged AV conduction. Ventricular rate is 67, CO interval 268, QRS duration 212, QTC 538, QTC 568. <Fatimah Nino - Last Filed: 06/12/20 22:33> Medical Decision Making - Lab Data Result diagrams: 06/12/20 20:48 06/12/20 20:48 <Nadir Mata - Last Filed: 06/12/20 22:29> - Lab Data Result diagrams: 06/12/20 20:48 06/12/20 20:48 <Fatimah Nino - Last Filed: 06/12/20 22:33> - Medical Decision Making Patient reevaluated and resting comfortably in bed. Family states the patient h as been forgetful and slightly confused over the past couple of days, patient was somewhat generally weak. Patient has complained of abdominal discomfort. Patient was reevaluated and reexamined the abdomen. I do agree with PA findings. This includes diagnostic interpretation and treatment plan. CT reviewed. Case was discussed with Dr. Rollins, who will admit covering for Dr. Segura (Nadir Mata) - Lab Data Lab Results 06/12/20 06/12/20 06/12/20 Range/Units 20:48 20:48 20:48 WBC 12.6 H (3.8-10.6) k/uL RBC 3.93 (3.80-5.40) m/uL Hgb 12.3 (11.4-16.0) gm/dL Hct 38.8 (34.0-46.0) % MCV 98.6 (80.0-100.0) fL MCH 31.3 (25.0-35.0) pg MCHC 31.7 (31.0-37.0) g/dL RDW 13.8 (11.5-15.5) % Plt Count 180 (150-450) k/uL Neutrophils % 81 % Lymphocytes % 8 % Monocytes % 7 % Eosinophils % 0 % Basophils % 0 % Neutrophils # 10.2 H (1.3-7.7) k/uL Lymphocytes # 1.0 (1.0-4.8) k/uL Monocytes # 0.9 (0-1.0) k/uL Eosinophils # 0.0 (0-0.7) k/uL Basophils # 0.0 (0-0.2) k/uL PT 9.2 (9.0-12.0) sec INR 0.9 (<1.2) APTT 25.0 (22.0-30.0) sec Sodium 134 L (137-145) mmol/L Potassium 4.2 (3.5-5.1) mmol/L Chloride 102 (98-107) mmol/L Carbon Dioxide 22 (22-30) mmol/L Anion Gap 10 mmol/L BUN 50 H (7-17) mg/dL Creatinine 1.54 H (0.52-1.04) mg/dL Est GFR (CKD-EPI)AfAm 34 (>60 ml/min/1.73 sqM) Est GFR (CKD-EPI)NonAf 30 (>60 ml/min/1.73 sqM) Glucose 172 H (74-99) mg/dL Calcium 9.3 (8.4-10.2) mg/dL Total Bilirubin 0.7 (0.2-1.3) mg/dL AST 28 (14-36) U/L ALT 15 (4-34) U/L Alkaline Phosphatase 114 (38-126) U/L Troponin I (0.000-0.034) ng/mL Total Protein 5.8 L (6.3-8.2) g/dL Albumin 3.5 (3.5-5.0) g/dL Urine Color Urine Appearance (Clear) Urine pH (5.0-8.0) Ur Specific [place] (1.001-1.035) Urine Protein (Negative) Urine Glucose (UA) (Negative) Urine Ketones (Negative) Urine Blood (Negative) Urine Nitrite (Negative) Urine Bilirubin (Negative) Urine Urobilinogen (<2.0) mg/dL Ur Leukocyte Esterase (Negative) Urine RBC (0-5) /hpf Urine WBC (0-5) /hpf Ur Squamous Epith Cells (0-4) /hpf Urine Bacteria (None) /hpf Hyaline Casts (0-2) /lpf 06/12/20 06/12/20 Range/Units 20:48 20:54 WBC (3.8-10.6) k/uL RBC (3.80-5.40) m/uL Hgb (11.4-16.0) gm/dL Hct (34.0-46.0) % MCV (80.0-100.0) fL MCH (25.0-35.0) pg MCHC (31.0-37.0) g/dL RDW (11.5-15.5) % Plt Count (150-450) k/uL Neutrophils % % Lymphocytes % % Monocytes % % Eosinophils % % Basophils % % Neutrophils # (1.3-7.7) k/uL Lymphocytes # (1.0-4.8) k/uL Monocytes # (0-1.0) k/uL Eosinophils # (0-0.7) k/uL Basophils # (0-0.2) k/uL PT (9.0-12.0) sec INR (<1.2) APTT (22.0-30.0) sec Sodium (137-145) mmol/L Potassium (3.5-5.1) mmol/L Chloride (98-107) mmol/L Carbon Dioxide (22-30) mmol/L Anion Gap mmol/L BUN (7-17) mg/dL Creatinine (0.52-1.04) mg/dL Est GFR (CKD-EPI)AfAm (>60 ml/min/1.73 sqM) Est GFR (CKD-EPI)NonAf (>60 ml/min/1.73 sqM) Glucose (74-99) mg/dL Calcium (8.4-10.2) mg/dL Total Bilirubin (0.2-1.3) mg/dL AST (14-36) U/L ALT (4-34) U/L Alkaline Phosphatase (38-126) U/L Troponin I 0.038 H* (0.000-0.034) ng/mL Total Protein (6.3-8.2) g/dL Albumin (3.5-5.0) g/dL Urine Color Yellow Urine Appearance Cloudy H (Clear) Urine pH 5.0 (5.0-8.0) Ur Specific [place] 1.019 (1.001-1.035) Urine Protein 1+ H (Negative) Urine Glucose (UA) Negative (Negative) Urine Ketones Negative (Negative) Urine Blood Small H (Negative) Urine Nitrite Negative (Negative) Urine Bilirubin Negative (Negative) Urine Urobilinogen <2.0 (<2.0) mg/dL Ur Leukocyte Esterase Large H (Negative) Urine RBC 3 (0-5) /hpf Urine WBC 7 H (0-5) /hpf Ur Squamous Epith Cells 3 (0-4) /hpf Urine Bacteria Rare H (None) /hpf Hyaline Casts 19 H (0-2) /lpf Disposition <Nadir Mata - Last Filed: 06/12/20 22:29> Decision to Admit Reason: Admit from [facility] Decision Date: 06/12/20 Decision Time: 22:33 <Fatimah Nino - Last Filed: 06/12/20 22:33> Clinical Impression: Fall, Colitis, Dehydration, UTI (urinary tract infection) Disposition: ADMITTED IP TO THIS [facility] Condition: Serious Referrals: Kathy Walker DO [Primary Care Provider] - 1-2 days
[2020-06-12 21:10] LABS: Appearance,Urine Cloudy (Clear); Bacteria,Urine Rare /hpf; Bilirubin,Urine Negative (Negative); Blood,Urine Small (Negative); Color,Urine Yellow; Glucose,Urine (UA) Negative (Negative); Hyaline Casts,Urine 19 /lpf (0-2); Ketones,Urine Negative (Negative); Leukocyte Esterase,Urine Large (Negative); Nitrite,Urine Negative (Negative); Protein,Urine 1+ (Negative); RBC,Urine 3 /hpf (0-5); Specific Gravity,Urine 1.019 (1.001-1.035); Squamous Epithelial Cell,Urine 3 /hpf (0-4); Urobilinogen,Urine <2.0 mg/dL (<2.0); WBC,Urine 7 /hpf (0-5)
[2020-06-12 21:11] LABS: Albumin 3.5 g/dL (3.5-5.0); Calcium 9.3 mg/dL (8.4-10.2); Potassium 4.2 mmol/L (3.5-5.1); Total Bilirubin 0.7 mg/dL (0.2-1.3); Total Protein 5.8 g/dL (6.3-8.2)
--- NOTE | 2020-06-12 21:22 | XR ---
EXAMINATION TYPE: XR shoulder complete LT DATE OF EXAM: 06/12/2020 COMPARISON: NONE HISTORY: 89 year-old female left shoulder pain after fall TECHNIQUE: 3 views FINDINGS: Some inferior acromial spurring is noted. Some bony irregularity at the greater tuberosity. No acute fracture, subluxation, or dislocation. Visualized left hemithorax is clear. Pacemaker generator parti ally visualized. IMPRESSION: Some inferior acromial spurring. Some additional bony changes suggest chronic rotator cuff tendinopat hy. No definite acute osseous abnormality seen.
--- NOTE | 2020-06-12 21:23 | XR ---
EXAMINATION TYPE: XR knee complete LT DATE OF EXAM: 06/12/2020 COMPARISON: NONE HISTORY: 89-year-old female with left knee pain after fall TECHNIQUE: 3 views FINDINGS: Trace knee joint effusion. Mild degenerative spurring patellofemoral compartment. Extensor mechanism is intact. Mild anterior soft tissue swelling. No acute fracture, subluxation, or dislocation. IMPRESSION: Mild anterior soft tissue swelling and a trace knee joint effusion. No acute osseous abnormality othe rwise seen.
[2020-06-12 21:24] LABS: Basophils % (A) 0 %; Eosinophils % (A) 0 %; HCT 38.8 % (34.0-46.0); HGB 12.3 gm/dL (11.4-16.0); Lymphocytes % (A) 8 %; MCH 31.3 pg (25.0-35.0); MCHC 31.7 g/dL (31.0-37.0); MCV 98.6 fL (80.0-100.0); Mean Platelet Volume 8.4; Monocytes # (A) 0.9 k/uL (0-1.0); Monocytes % (A) 7 %; Neutrophils # (A) 10.2 k/uL (1.3-7.7); Neutrophils % (A) 81 %; Platelet Count 180 k/uL (150-450); RBC 3.93 m/uL (3.80-5.40); RDW 13.8 % (11.5-15.5); WBC 12.6 k/uL (3.8-10.6)
[2020-06-12 21:45] LABS: INR 0.9 (<1.2); Prothrombin Time 9.2 sec (9.0-12.0)
--- NOTE | 2020-06-12 21:49 | CT ---
EXAMINATION TYPE: CT abdomen pelvis wo con DATE OF EXAM: 06/12/2020 COMPARISON: Renal ultrasound 04/03/2019 HISTORY: 89-year-old female with LT side pain after fall CT DLP: 609.9 mGycm. Automated exposure control for dose reduction was used. TECHNIQUE: Contiguous axial scanning of the abdomen and pelvis without IV contrast. Coronal and sagit annie reconstructions performed. FINDINGS: Heart upper limits of normal in size. Dense mitral annular calcifications. Right atrial and right marian tricular pacer leads are present. Strandy atelectasis in the lower lungs. No pleural effusion. Noncontrast appearance of the liver shows a calcified granuloma in the left lobe. Noncontrast appearance of the gallbladder, adrenal glands, right kidney, spleen, atrophic pancreas sh ow no gross abnormality. Indeterminate 1.8 cm left lateral lower pole hyperdense renal lesion, probable cyst as a 1.6 cm cyst was seen on the 04/03/2019 ultrasound. No mesenteric or retroperitoneal lymphadenopathy. Dilated small bowel or free air. There are a couple patulous loops of small bowel in the left midabdo men with air-fluid level measuring up to 2.8 cm. No transition point is seen. Generalized colonic diverticulosis. There is circumferential wall thickening along segments of the co gabi, for example, the distal third transverse colon, axial image 51, the splenic flexure, axial image 23, and the proximal to mid sigmoid colon, axial image 62 and 63. Mild fat stranding is present arou nd these regions. Does not appear to be centered along a particular diverticular change. Moderate atherosclerotic changes abdominal aorta without aneurysm. Trace cul-de-sac free fluid on axial image 67. Bladder underdistended. Uterus anteverted. Both ovarie s are visualized. No pelvic lymphadenopathy seen. Bones: There is a L3 vertebral body fracture with approximately 40% overall height loss this may have been present back in 2018. Intraspinous posterior lumbar fusion at L3-L4 and L4-L5. [facility] within the lower thoracic spine. IMPRESSION: 1. Multiple segments of circumferential colonic wall thickening suggests a moderate nonspecific coli tis. While there is generalized colonic diverticulosis, the inflammation does not appear to be center ed in particular diverticulum. 2. A couple borderline distended small bowel loops in the left midabdomen probably represents a sec ondary regional ileus. 3. Trace cul-de-sac free fluid likely reactive to the colonic inflammation. 4. L3 vertebral compression collapse may have been present back on the intraoperative fluoroscopy of 03/12/2018. Favor chronic injury.
--- NOTE | 2020-06-12 21:56 | CT ---
EXAMINATION TYPE: CT brain hector wo con DATE OF EXAM: 06/12/2020 COMPARISON: 06/23/2019 HISTORY: 89-year-old female with fall, c/o neck pain CT DLP: 1278.50 mGycm Automated exposure control for dose reduction was used. Technique: Examination of the head was done in axial plane without intravenous contrast. Coronal and sagittal reconstructions performed. CT of the cervical spine was obtained in axial plane without intravenous injection of contrast mater ial. Coronal and sagittal reformatted images were obtained from the axial views for evaluation of f ractures, spinal alignment and canal. FINDINGS: Head: There is no evidence of acute intracranial hemorrhage, acute ischemic changes, mass, mass-effect, or extra-axial fluid collection. There is no effacement of cerebral sulci or basal subarachnoid cister ns. Mild central cerebral atrophy with secondary mild prominence to the ventricular system is unchanged. There is no midline shift. Lovelace-white matter distinction is preserved. Mild patchy periventricular white matter hypodensities likely reflects chronic small vessel ischemic disease. Benign basal ganglia calcifications. Old lacunar infarct left basal ganglia. At this current calcifications within the carotid siphons. Mild mucosal thickening ethmoid air cells. Mastoid air cells well pneumatized. Orbits and globes are intact. No calvarial fracture. Cervical spine: No craniocervical junction abnormality, predental space widening, or prevertebral soft tissue swellin g. Grade 1 anterolisthesis at C3-C4 and C7-T1 is unchanged. Remaining alignment is maintained. Mild to moderate degenerative disc disease C5-C6. Scattered facet and uncovertebral joint arthropathy. Assessment of the spinal canal limited from C5 and below due to artifact from patient shoulders. Mode rate right neuroforaminal stenosis at C3-C4 and moderate on the left at C5-C6. Biapical pleural-parenchymal scarring. Sagittal and coronal reformatted images confirm above findings. COMBINED IMPRESSION: 1. Mild to moderate generalized atrophy and mild patchy changes of chronic small vessel ischemic dise ase. No acute intracranial abnormality seen. 2. No acute fracture of the cervical spine. Unchanged degenerative grade 1 anterolisthesis at C3-C4 a nd C7-T1. Moderate spondylotic change.
[2020-06-12] MEDS ORDERED: NALOXONE 0.4 MG/ML 1 ML VIAL IV PRN (22:29)
[2020-06-12] MEDS ORDERED: AMPICILLIN-SULBACTAM 3 GM in SODIUM CHLORIDE 0.9% 100 ML IVPB STA (22:32)
[2020-06-12] MEDS: SODIUM CHLORIDE 0.9% 1,000 ML IV SCH (22:51)
[2020-06-13] MEDS: SODIUM CHLORIDE 0.9% 1,000 ML IV SCH (07:48)
[2020-06-13] MEDS ORDERED: AMPICILLIN-SULBACTAM 3 GM in SODIUM CHLORIDE 0.9% 100 ML IVPB SCH (08:00)
[2020-06-13] MEDS: FUROSEMIDE 20 MG TAB PO SCH (08:22)
[2020-06-13] MEDS: ACETAMINOPHEN TAB 500 MG TAB PO SCH ×2 (08:22→21:11)
[2020-06-13] MEDS: METOPROLOL TARTRATE 50 MG TAB PO SCH ×2 (08:22→21:11)
[2020-06-13] MEDS: allopurinoL 100 MG TAB PO SCH (08:23)
[2020-06-13] MEDS: lisinopriL 10 MG TAB PO SCH (08:23)
[2020-06-13] MEDS: LINAGLIPTIN 5 MG TABLET PO SCH (08:23)
[2020-06-13] MEDS: FLECAINIDE 50 MG TAB PO SCH ×2 (08:23→21:11)
[2020-06-13] MEDS ORDERED: ASPIRIN 325 MG TAB PO SCH (09:00)
[2020-06-13] MEDS ORDERED: FAMOTIDINE 20 MG TAB PO SCH (09:00)
--- NOTE | 2020-06-13 10:32 | P.CRDCN ---
History of Present Illness History of present illness: HISTORY OF PRESENTING ILLNESS This is a pleasant 89-year-old female past medical history significant for permanent pacemaker implantations, hypertension, diabetes mellitus, dyslipi demia, coronary artery disease and mild memory impairment. She is somewhat memory impaired, information is obtained from her granddaughter, nursing staff and medical record. She follows in the office with Charline out of [facility]. We have been asked to see in consultation for elevated troponin. She was brought to the ER secondary to fall and altered mental status. She has apparently been slow to respond and confused since Saturday of last week. The patient states she was sitting visiting with some of her children and the phone rang prompting her to get up. Upon rising she tripped over her feet and fell on her left side. She denies feeling dizzy or having loss of consciousness. She denies having had chest pain, shortness of breath, nausea, vomiting, diaphoresis or palpitations. She is seen and examined sitting up in the chair in no acute distress. DIAGNOSTICS EKG reveals atrial sensed ventricular paced rhythm. CT of the abdomen and pelvis reveals evidence of possible ileitis and colitis. Brain/spine CT reveals mild to moderate generalized atrophy and mild patchy changes of chronic small vessel ischemic disease with no acute intracranial abnormality or fracture of the cervical spine. Laboratory reviewed, WBC 12.6, hemoglobin 12.3, platelets 180, sodium 134, potassium 4.2, creatinine 1.54 with a GFR of 30 and troponin 0.038. Current cardiac medications include Lopressor 50 mg twice a day, aspirin 325 mg daily, flecainide 50 mg twice a day, Lasix 20 mg daily, lisinopril 10 mg daily and atorvastatin 10 mg at bedtime. REVIEW OF SYSTEMS At the time of my exam: CONSTITUTIONAL: Denies fever or chills. CARDIOVASCULAR: Denies chest pain, shortness of breath, orthopnea, PND or palpitations. RESPIRATORY: Denies cough. GASTROINTESTINAL: Denies abdominal pain, diarrhea, constipation, nausea or vomiting. MUSCULOSKELETAL: Denies myalgias. NEUROLOGIC: Denies numbness, tingling or weakness. ENDOCRINE: Denies fatigue, weight change, polydipsia or polyurina. GENITOURINARY: Denies burning, hematuria or urgency with micturation. HEMATOLOGIC: Denies history of anemia or bleeding. PHYSICAL EXAMINATION Blood pressure 144/54 heart rate 73 afebrile and maintaining oxygen saturation on room air. CONSTITUTIONAL: No apparent distress. HEENT: Head is normocephalic. Pupils are equal, round. Sclerae anicteric. Mucous membranes of the mouth are moist. No JVD. Bilateral carotid bruit. CHEST EXAMINATION: Lungs are clear to auscultation. No chest wall tenderness is noted on palpation or with deep breathing. HEART EXAMINATION: Regular rate and rhythm. S1, S2 heard. Systolic ejection murmur at all listening points worse at the apex, no gallops or rub. ABDOMEN: Soft, nontender. Positive bowel sounds. EXTREMITIES: 2+ peripheral pulses, no lower extremity edema and no calf tenderness. NEUROLOGIC EXAMINATION: Patient is awake, alert and oriented to self and situation. ASSESSMENT Fall, mechanical. No syncope or loss of consciousness Mild troponin leak of unclear etiology, likely secondary to renal function. No symptoms of chest pain or shortness of breath. Urinary tract infection Altered mental status Permanent pacemaker implantation Documented history of coronary artery disease, exact details unavailable Diabetes mellitus Hypertension Dyslipidemia PLAN Obtain 2D echocardiogram and doppler study to assess cardiac structure and function. Interrogate pacemaker. Obtain report from her primary speech language pathologist assistant of recent office visit with information surrounding her cardiac history and most recent echo. Thank you kindly for this consultation. Nurse Practitioner note has been reviewed, I agree with a documented findings and plan of care. Patient was seen and examined. Past Medical History Past Medical History: Coronary Artery Disease (CAD), Diabetes Mellitus, Hypertension Additional Past Medical History / Comment(s): varicose veins, constipation/diarrhea, "slow heart rate", type 2 diabetic History of Any Multi-Drug Resistant Organisms: None Reported Past Surgical History: Cholecystectomy, Pacemaker Additional Past Surgical History / Comment(s): nahid cataracts Past Anesthesia/Blood Transfusion Reactions: No Reported Reaction Type of Cardiac Device: Permanent Pacemaker Device Placement Date:: 2011 Past Psychological History: No Psychological Hx Reported Smoking Status: Never smoker Past Alcohol Use History: None Reported Past Drug Use History: None Reported - Past Family History Mother Family Medical History: No Reported History Brother(s) Family Medical History: Cancer Sister(s) Family Medical History: Cancer Medications and Allergies Home Medications Medication Instructions Recorded Confirmed Type Acetaminophen [Tylenol Extra 500 mg PO BID 03/05/18 06/12/20 History Strength] Allopurinol [Zyloprim] 100 mg PO DAILY 03/05/18 06/12/20 History Aspirin [Adult Low Dose Aspirin EC] 325 mg PO DAILY 03/05/18 06/12/20 History Atorvastatin [Lipitor] 10 mg PO HS 03/05/18 06/12/20 History Flecainide [Tambocor] 50 mg PO Q12HR 03/05/18 06/12/20 History Furosemide [Lasix] 20 mg PO DAILY 03/05/18 06/12/20 History Linagliptin [Tradjenta] 5 mg PO DAILY 03/05/18 06/12/20 History Metoprolol Tartrate [Lopressor] 50 mg PO BID 03/05/18 06/12/20 History Famotidine [Pepcid] 20 mg PO BID 06/12/20 06/12/20 History Lisinopril [Zestril] 10 mg PO DAILY 06/12/20 06/12/20 History Allergies Allergy/AdvReac Type Severity Reaction Status Date / Time simvastatin [From Zocor] Allergy Unknown Verified 06/12/20 23:10 Physical Exam Vitals: Vital Signs Temp Pulse Pulse Resp BP BP Pulse Ox 06/13/20 07:00 97.9 F 73 16 144/54 100 06/13/20 02:10 97.7 F 64 90/50 98 06/13/20 00:00 75 16 06/12/20 23:09 97.4 F L 75 16 119/52 96 06/12/20 22:54 68 16 112/40 99 06/12/20 22:10 65 17 116/47 97 06/12/20 20:01 98.0 F 71 18 102/49 97 Intake and Output 06/12/20 06/13/20 06/13/20 22:59 06:59 14:59 Intake Total 640 Balance 640 Intake: Intake, IV Titration 640 Amount Sodium Chloride 0.9% 1, 640 000 ml @ 80 mls/hr IV . [id number] Rx#:[id number] Other: Voiding Method Bedside Commode Bedside Commode # Voids 1 1 Weight 61.235 kg 61.235 kg Results 06/12/20 20:48 06/12/20 20:48 Cardiac Enzymes 06/12/20 06/12/20 Range/Units 20:48 20:48 AST 28 (14-36) U/L Troponin I 0.038 H* (0.000-0.034) ng/mL Coagulation 06/12/20 Range/Units 20:48 PT 9.2 (9.0-12.0) sec APTT 25.0 (22.0-30.0) sec CBC 06/12/20 Range/Units 20:48 WBC 12.6 H (3.8-10.6) k/uL RBC 3.93 (3.80-5.40) m/uL Hgb 12.3 (11.4-16.0) gm/dL Hct 38.8 (34.0-46.0) % Plt Count 180 (150-450) k/uL Comprehensive Metabolic Panel 06/12/20 Range/Units 20:48 Sodium 134 L (137-145) mmol/L Potassium 4.2 (3.5-5.1) mmol/L Chloride 102 (98-107) mmol/L Carbon Dioxide 22 (22-30) mmol/L BUN 50 H (7-17) mg/dL Creatinine 1.54 H (0.52-1.04) mg/dL Glucose 172 H (74-99) mg/dL Calcium 9.3 (8.4-10.2) mg/dL AST 28 (14-36) U/L ALT 15 (4-34) U/L Alkaline Phosphatase 114 (38-126) U/L Total Protein 5.8 L (6.3-8.2) g/dL Albumin 3.5 (3.5-5.0) g/dL Current Medications Generic Name Dose Route Start Last Admin Trade Name Freq PRN Reason Stop Dose Admin Acetaminophen 500 mg 06/13/20 09:00 06/13/20 08:22 Tylenol Tab PO 500 mg BID BRADY Administration Allopurinol 100 mg 06/13/20 09:00 06/13/20 08:23 Zyloprim PO 100 mg DAILY BRADY Administration Aspirin 325 mg 06/13/20 09:00 06/13/20 08:22 Aspirin PO 325 mg DAILY BRADY Administration Atorvastatin Calcium 10 mg 06/13/20 21:00 Lipitor PO HS BRADY Famotidine 20 mg 06/13/20 09:00 06/13/20 08:23 Pepcid PO 20 mg BID BRADY Administration Flecainide Acetate 50 mg 06/13/20 09:00 06/13/20 08:23 Tambocor PO 50 mg Q12HR BRADY Administration Furosemide 20 mg 06/13/20 09:00 06/13/20 08:22 Lasix PO 20 mg DAILY BRADY Administration Sodium Chloride 1,000 mls @ 80 mls/hr 06/12/20 22:00 06/13/20 07:48 Saline 0.9% IV 80 mls/hr .[id number] BRADY Administration Ceftriaxone Sodium 1 gm/ 50 mls @ 100 mls/hr 06/13/20 09:00 06/13/20 08:22 Sodium Chloride IVPB 100 mls/hr Q24HR BRADY Administration Insulin Aspart 0 unit 06/13/20 12:30 Novolog SQ ACHS BRADY Protocol Linagliptin 5 mg 06/13/20 09:00 06/13/20 08:23 Tradjenta PO 5 mg DAILY BRADY Administration Lisinopril 10 mg 06/13/20 09:00 06/13/20 08:23 Zestril PO 10 mg DAILY BRADY Administration Metoprolol Tartrate 50 mg 06/13/20 09:00 06/13/20 08:22 Lopressor PO 50 mg BID BRADY Administration Naloxone HCl 0.2 mg 06/12/20 22:29 Narcan IV Q2M PRN Opioid Reversal Intake and Output 06/12/20 06/13/20 06/13/20 22:59 06:59 14:59 Intake Total 640 Balance 640 Intake: Intake, IV Titration 640 Amount Sodium Chloride 0.9% 1, 640 000 ml @ 80 mls/hr IV . [id number] BRADY Rx#:[id number] Other: Voiding Method Bedside Commode Bedside Commode # Voids 1 1 Weight 61.235 kg 61.235 kg 06/12/20 20:48 06/12/20 20:48
[2020-06-13 11:14] LABS: Glucose,Whole Blood 149 mg/dL (75-99)
--- NOTE | 2020-06-13 11:29 | ECHOF ---
Referral Reason:LVF MEASUREMENTS -------- HEIGHT: 129.5 cm WEIGHT: 61.2 kg BP: IVSd: 1.8 cm (0.6 - 1.1) LVIDd: 3.5 cm (3.9 - 5.3) LVPWd: 1.7 cm (0.6 - 1.1) IVSs: 2.1 cm LVIDs: 2.5 cm LVPWs: 2.2 cm LAESV Index (A-L): 41.30 ml/m Ao Diam: 2.9 cm (2.0 - 3.7) AV Cusp: 1.2 cm (1.5 - 2.6) LA Diam: 3.8 cm (2.7 - 3.8) MV E Rodney: 1.26 m/s MV DecT: 316 ms MV A Rodney: 1.85 m/s MV E/A Ratio: 0.68 AV maxP.14 mmHg AV meanP.27 mmHg AR PHT: 666 ms RAP: 5.00 mmHg RVSP: 22.52 mmHg FINDINGS -------- Paced rhythm. This was a technically good study. The left ventricular size is normal. There is moderate concentric left ventricular hypertrophy. O verall left ventricular systolic function is mildly impaired with, an EF between 45 - 50 %. Left ve ntricular fillimg pressure cannot be estimated due to paced rhythm. Apical septum LV wall motion is hypokinetic. The right ventricle is normal in size. LA is severely dilated >40 ml/m2 The right atrial size is normal. Dropout seen in the interatrial septum Aortic valve is trileaflet and is moderately thickened. There is moderate aortic regurgitation. T here is moderate aortic stenosis present. Peak/mean gradient across the Aortic Valve is 56.14mmHg / 32.27mmHg. The mitral valve leaflets are moderately thickened. Moderate mitral annular calcification present. Mild mitral regurgitation is present. The peak and mean MV gradients are 21.58mmHg 8.45mmHg as m easured by doppler. [id number] mitral stenosis. The tricuspid valve appears structurally normal. Mild tricuspid regurgitation present. Right vent ricular systolic pressure is normal at < 35 mmHg. There is no pulmonic regurgitation present. The aortic root size is normal. IVC Not well visulized. There is no pericardial effusion. CONCLUSIONS -------- 1. Paced rhythm. 2. There is moderate concentric left ventricular hypertrophy. 3. Overall left ventricular systolic function is mildly impaired with, an EF between 45 - 50 %. 4. Left ventricular fillimg pressure cannot be estimated due to paced rhythm. 5. Apical septum LV wall motion is hypokinetic. 6. LA is severely dilated >40 ml/m2 7. Dropout seen in the interatrial septum 8. Aortic valve is trileaflet and is moderately thickened. 9. There is moderate aortic regurgitation. 10. There is moderate aortic stenosis present. 11. Peak/mean gradient across the Aortic Valve is 56.14mmHg / 32.27mmHg. 12. The mitral valve leaflets are moderately thickened. 13. Moderate mitral annular calcification present. 14. Mild mitral regurgitation is present. 15. The peak and mean MV gradients are 21.58mmHg 8.45mmHg as measured by doppler. 16. [id number] mitral stenosis. 17. Mild tricuspid regurgitation present. DIRECTOR OF ACADEMIC: Rabia Srivastava RDCS
[2020-06-13] MEDS: INSULIN ASPART (NovoLOG) 100 UNIT/ML VIAL SQ SCH ×3 (11:30→21:11)
--- NOTE | 2020-06-13 13:59 | P.HPIM ---
History of Present Illness H&P Date: 06/13/20 Chief Complaint: Altered mental status History of Present Illness This is an 89-year-old female patient of Dr. Walker with past medical history of coronary artery disease, hypertension, pacemaker. Patient came into [facility] emergency center due to confusion since Saturday. Patient also had a fall at home. She initially complained of left shoulder, left abdominal and left knee pain and neck pain. EKG reveals atrial sensed marian tricular paced rhythm. CT of the abdomen and pelvis reveals evidence of possible ileitis and colitis. Brain/spine CT reveals mild to moderate generalized atrophy and mild patchy changes of chronic small vessel ischemic disease with no acute intracranial abnormality or fracture of the cervical spine. WBC 12.6, hemoglobin 12.3, platelets 180, sodium 134, potassium 4.2, creatinine 1.54 with a GFR of 30 and troponin 0.038. Patient is seen on the [facility] floor. Patient states that she lives in a senior home alone. She has been a for 16 years. She states she had a fall and was able to get up but could not get to the phone. She states she was trying to get to the phone when she did fall. Patient was found to be afebrile, heart rate 71, blood pressure 102/49, pulse ox 97% on room air. Consult in place with cardiology for elevated troponin. No medications have been resumed and antibiotics changed to ceftriaxone. Review of Systems Constitutional: No fever, no chills, no night sweats. No weight change. Reports weakness,Reports fatigue Reports lethargy. No daytime sleepiness. EENT: No headache. No blurred vision or double vision, no loss of vision. No loss of Hearing, no ringing in the ears, no dizziness. No nasal drainage or congestion. No epistaxis. No sore throat. Lungs: No shortness of breath, cough, no sputum production. No wheezing. Cardiovascular: No chest pain, no lower extremity edema. No palpitations. No paroxysmal nocturnal dyspnea. No orthopnea. No lightheadedness or dizziness. No syncopal episodes. Abdominal: No abdominal pain. No nausea, vomiting. No diarrhea. No constipation. No bloody or tarry stools.. No loss of appetite. Genitourinary: No dysuria, increased frequency, urgency. No urinary retention. Musculoskeletal: No myalgias. Reports muscle weakness, Reports gait dysfunction, no frequent falls. No back pain. No neck pain. Integumentary: No wounds, no lesions. No rash or pruritus. No unusual bru ising. No change in hair or nails. Neurologic: No aphasia. No facial droop. Reports change in mentation. No head injury. No headache. No paralysis. No paresthesia. Psychiatric: No depression. No anxiety. No mood swings. Endocrine: No abnormal blood sugars. No weight change. No excessive sweating or thirst. No cold intolerance. Physical Examination Gen: This is an 89-year-old female. Patient is resting in bed and appears to be comfortable. HEENT: Head is atraumatic, normocephalic. Pupils equal, round. Sclerae is anicteric. NECK: Supple. No JVD. No lymphadenopathy. No thyromegaly. LUNGS: Clear to auscultation. No wheezes or rhonchi. No intercostal retractions. HEART: Regular rate and rhythm. Systolic ejection murmur. ABDOMEN: Soft. Bowel sounds are present. No masses. No tenderness. EXTREMITIES: No pedal edema. No calf tenderness. NEUROLOGICAL: Patient is awake, alert and oriented to person and place. Cranial nerves 2 through 12 are grossly intact. Assessment and Plan 1. Mechanical fall, x-rays all negative. 2. Metabolic encephalopathy secondary to UTI. Intermedics changed to ceftriaxone. Await urine culture and sensitivity. 3. Elevated troponin without chest pain. Cardiology consult appreciated. Acute coronary syndrome ruled out. 4. History of permanent pacemaker implantation. Device to be interrogated. 5. Diabetes mellitus type 2. Continue gentle, NovoLog scale. 6. Possible history of atrial fibrillation. Patient is on Lopressor 50 mg twice daily, flecainide 50 mg every 12 hours. 7. Hyperlipidemia. Continue atorvastatin 10 mg at bedtime. 8. Gastroesophageal reflux disease. Continue famotidine 20 mg daily. 9. Hypertension. Continue Lopressor 50 mg twice daily, Lasix 20 mg daily and lisinopril 10 mg daily. 10. Possible history of coronary artery disease. Continue aspirin 81 mg daily, Lipitor.. 11. DVT prophylaxis. Heparin subcu. 12. COVID-19 testing. Patient placed as an observation status. Discharge plan: Return home Impression and plan of care have been directed as dictated by the signing physician. Fide Zhang nurse practitioner acting as scribe for signing physician. Past Medical History Past Medical History: Coronary Artery Disease (CAD), Diabetes Mellitus, Hypertension Additional Past Medical History / Comment(s): varicose veins, constipation/diarrhea, "slow heart rate", type 2 diabetic History of Any Multi-Drug Resistant Organisms: None Reported Past Surgical History: Cholecystectomy, Pacemaker Additional Past Surgical History / Comment(s): nahid cataracts Past Anesthesia/Blood Transfusion Reactions: No Reported Reaction Type of Cardiac Device: Permanent Pacemaker Device Placement Date:: 2011 Past Psychological History: No Psychological Hx Reported Smoking Status: Never smoker Past Alcohol Use History: None Reported Additional Past Alcohol Use History / Comment(s): Patient is a lifelong nonsmoker, no alcohol use, no illicit drug use, no marijuana use. Patient lives alone in senior apartment. She has been a for 16 years. Past Drug Use History: None Reported - Past Family History Mother Family Medical History: No Reported History Additional Family Medical History / Comment(s): Mother at age 70 from myocardial infarction. Brother(s) Family Medical History: Cancer Additional Family Medical History / Comment(s): Patient had a total of 7 brothers and sisters. One brother still alive at age 92. Patient does not recall medical history and other siblings. Sister(s) Family Medical History: Cancer Father Additional Family Medical History / Comment(s): Father in his 60s from coronary artery disease. Medications and Allergies Home Medications Medication Instructions Recorded Confirmed Type Acetaminophen [Tylenol Extra 500 mg PO BID 03/05/18 06/12/20 History Strength] Allopurinol [Zyloprim] 100 mg PO DAILY 03/05/18 06/12/20 History Aspirin [Adult Low Dose Aspirin EC] 325 mg PO DAILY 03/05/18 06/12/20 History Atorvastatin [Lipitor] 10 mg PO HS 03/05/18 06/12/20 History Flecainide [Tambocor] 50 mg PO Q12HR 03/05/18 06/12/20 History Furosemide [Lasix] 20 mg PO DAILY 03/05/18 06/12/20 History Linagliptin [Tradjenta] 5 mg PO DAILY 03/05/18 06/12/20 History Metoprolol Tartrate [Lopressor] 50 mg PO BID 03/05/18 06/12/20 History Famotidine [Pepcid] 20 mg PO BID 06/12/20 06/12/20 History Lisinopril [Zestril] 10 mg PO DAILY 06/12/20 06/12/20 History Allergies Allergy/AdvReac Type Severity Reaction Status Date / Time simvastatin [From Zocor] Allergy Unknown Verified 06/12/20 23:10 Physical Exam Vitals: Vital Signs Temp Pulse Pulse Resp BP BP Pulse Ox 06/13/20 02:10 97.7 F 64 90/50 98 06/13/20 00:00 75 16 06/12/20 23:09 97.4 F L 75 16 119/52 96 06/12/20 22:54 68 16 112/40 99 06/12/20 22:10 65 17 116/47 97 06/12/20 20:01 98.0 F 71 18 102/49 97 Intake and Output 06/12/20 06/13/20 06/13/20 22:59 06:59 14:59 Intake Total 640 Balance 640 Intake: Intake, IV Titration 640 Amount Sodium Chloride 0.9% 1, 640 000 ml @ 80 mls/hr IV . [id number] [facility] Rx#:[id number] Other: Voiding Method Bedside Commode Bedside Commode # Voids 1 Weight 61.235 kg 61.235 kg Results CBC & Chem 7: 06/12/20 20:48 06/12/20 20:48 Labs: Abnormal Lab Results - Last 24 Hours (Table) 06/12/20 06/12/20 06/12/20 Range/Units 20:48 20:48 20:48 WBC 12.6 H (3.8-10.6) k/uL Neutrophils # 10.2 H (1.3-7.7) k/uL Sodium 134 L (137-145) mmol/L BUN 50 H (7-17) mg/dL Creatinine 1.54 H (0.52-1.04) mg/dL Glucose 172 H (74-99) mg/dL Troponin I 0.038 H* (0.000-0.034) ng/mL Total Protein 5.8 L (6.3-8.2) g/dL Urine Appearance (Clear) Urine Protein (Negative) Urine Blood (Negative) Ur Leukocyte Esterase (Negative) Urine WBC (0-5) /hpf Urine Bacteria (None) /hpf Hyaline Casts (0-2) /lpf 06/12/20 Range/Units 20:54 WBC (3.8-10.6) k/uL Neutrophils # (1.3-7.7) k/uL Sodium (137-145) mmol/L BUN (7-17) mg/dL Creatinine (0.52-1.04) mg/dL Glucose (74-99) mg/dL Troponin I (0.000-0.034) ng/mL Total Protein (6.3-8.2) g/dL Urine Appearance Cloudy H (Clear) Urine Protein 1+ H (Negative) Urine Blood Small H (Negative) Ur Leukocyte Esterase Large H (Negative) Urine WBC 7 H (0-5) /hpf Urine Bacteria Rare H (None) /hpf Hyaline Casts 19 H (0-2) /lpf Thrombosis Risk Factor Assmnt - DVT/VTE Prophylaxis DVT/VTE Prophylaxis: Pharmacologic Prophylaxis ordered - Choose All That Apply Any of the Below Risk Factors Present?: Yes Each Factor Represents 1 point: Medical pt on bed rest, Varicose veins Other Risk Factors: Yes Each Risk Factor Represents 3 Points: Age 75 years or older Other congenital or acquired thrombophilia - If yes, enter type in comment: No Thrombosis Risk Factor Assessment Total Risk Factor Score: 5 Thrombosis Risk Factor Assessment Level: High Risk
[2020-06-13 16:36] LABS: Glucose,Whole Blood 163 mg/dL (75-99)
[2020-06-13 20:23] LABS: Glucose,Whole Blood 159 mg/dL (75-99)
[2020-06-13] MEDS: ATORVASTATIN 10 MG TAB PO SCH (21:10)
[2020-06-13] MEDS: HEPARIN SODIUM,PORCINE 5,000 UNIT/ML 1 ML VIAL SQ SCH (21:12)
[2020-06-14 06:46] LABS: Glucose,Whole Blood 136 mg/dL (75-99)
[2020-06-14] MEDS: ASPIRIN 81 MG PO SCH (07:36)
[2020-06-14] MEDS: LINAGLIPTIN 5 MG TABLET PO SCH (07:36)
[2020-06-14] MEDS: lisinopriL 10 MG TAB PO SCH (07:36)
[2020-06-14] MEDS: FAMOTIDINE 20 MG TAB PO SCH (07:36)
[2020-06-14] MEDS: FUROSEMIDE 20 MG TAB PO SCH (07:36)
[2020-06-14] MEDS: HEPARIN SODIUM,PORCINE 5,000 UNIT/ML 1 ML VIAL SQ SCH ×2 (07:36→21:43)
[2020-06-14] MEDS: INSULIN ASPART (NovoLOG) 100 UNIT/ML VIAL SQ SCH ×4 (07:36→21:43)
[2020-06-14] MEDS: ACETAMINOPHEN TAB 500 MG TAB PO SCH ×2 (07:37→21:42)
[2020-06-14] MEDS: FLECAINIDE 50 MG TAB PO SCH ×2 (07:37→21:42)
[2020-06-14] MEDS: METOPROLOL TARTRATE 50 MG TAB PO SCH ×2 (07:37→21:42)
[2020-06-14] MEDS: allopurinoL 100 MG TAB PO SCH (07:37)
--- NOTE | 2020-06-14 10:31 | P.PN ---
Subjective Progress Note Date: 06/14/20 History of Present Illness This is an 89-year-old female patient of Dr. Walker with past medical history of coronary artery disease, hypertension, pacemaker. Patient came into [facility] emergency center due to confusion since Saturday. Patient also had a fall at home. She initially complained of left shoulder, left abdominal and left knee pain and neck pain. EKG reveals atrial sensed ventricular paced rhythm. CT of the abdomen and pelvis reveals evidence of possible ileitis and colitis. Brain/spine CT reveals mild to moderate generalized atrophy and mild patchy changes of chronic small vessel ischemic disease with no acute intracranial abnormality or fracture of the cervical spine. WBC 12.6, hemoglobin 12.3, platelets 180, sodium 134, potassium 4.2, creatinine 1.54 with a GFR of 30 and troponin 0.038. Patient is seen on the MedSur floor. Patient states that she lives in a senior home alone. She has been a for 16 years. She states she had a fall and was able to get up but could not get to the phone. She states she was trying to get to the phone when she did fall. Patient was found to be afebrile, heart rate 71, blood pressure 102/49, pulse ox 97% on room air. Consult in place with cardiology for elevated troponin. No medications have been resumed and antibiotics changed to ceftriaxone. 06/14: Patient is seen in follow-up today. She has in the bathroom just finished washing up. She is currently doing this alone but reported that she needed to be assisted and there was concern about need for subacute rehab. PT and OT sh ould be seen her today. Mental status is improved. We will ask for case sealer to follow for possible discharge knee. She has been afebrile, heart rate 72, blood pressure 162/55, pulse ox 99% on room air. Blood sugars are running between 136 263. Urine culture is in progress. Review of Systems Constitutional: No fever, no chills, no night sweats. No weight change. Reports weakness,Reports fatigue Reports lethargy. No daytime sleepiness. EENT: No headache. No blurred vision or double vision, no loss of vision. No loss of Hearing, no ringing in the ears, no dizziness. No nasal drainage or congestion. No epistaxis. No sore throat. Lungs: No shortness of breath, cough, no sputum production. No wheezing. Cardiovascular: No chest pain, no lower extremity edema. No palpitations. No paroxysmal nocturnal dyspnea. No orthopnea. No lightheadedness or dizziness. No syncopal episodes. Abdominal: No abdominal pain. No nausea, vomiting. No diarrhea. No constipation. No bloody or tarry stools.. No loss of appetite. Genitourinary: No dysuria, increased frequency, urgency. No urinary retention. Musculoskeletal: No myalgias. Reports muscle weakness, Reports gait dysfunction, no frequent falls. No back pain. No neck pain. Integumentary: No wounds, no lesions. No rash or pruritus. No unusual bruising. No change in hair or nails. Neurologic: No aphasia. No facial droop. No change in mentation. No head injury. No headache. No paralysis. No paresthesia. Psychiatric: No depression. No anxiety. No mood swings. Endocrine: No abnormal blood sugars. No weight change. No excessive sweating or thirst. No cold intolerance. Physical Examination Gen: This is an 89-year-old female. Patient is resting in bed and appears to be comfortable. HEENT: Head is atraumatic, normocephalic. Pupils equal, round. Sclerae is anicteric. NECK: Supple. No JVD. No lymphadenopathy. No thyromegaly. LUNGS: Clear to auscultation. No wheezes or rhonchi. No intercostal retractions. HEART: Regular rate and rhythm. Systolic ejection murmur. ABDOMEN: Soft. Bowel sounds are present. No masses. No tenderness. EXTREMITIES: No pedal edema. No calf tenderness. NEUROLOGICAL: Patient is awake, alert and oriented 3. Cranial nerves 2 through 12 are grossly intact. Assessment and Plan 1. Mechanical fall, x-rays all negative. 2. Metabolic encephalopathy secondary to UTI. Continue ceftriaxone. Await urine culture and sensitivity. 3. Elevated troponin without chest pain. Cardiology consult appreciated. Acute coronary syndrome ruled out. 4. History of permanent pacemaker implantation. Device to be interrogated. 5. Diabetes mellitus type 2. Continue Tradjenta, NovoLog scale. 6. Possible history of atrial fibrillation. Patient is on Lopressor 50 mg twice daily, flecainide 50 mg every 12 hours. Cardiology on consult 7. Hyperlipidemia. Continue atorvastatin 10 mg at bedtime. 8. Gastroesophageal reflux disease. Continue famotidine 20 mg daily. 9. Hypertension. Continue Lopressor 50 mg twice daily, Lasix 20 mg daily and lisinopril 10 mg daily. 10. Possible history of coronary artery disease. Continue aspirin 81 mg daily, Lipitor.. 11. DVT prophylaxis. Heparin subcu. 12. COVID-19 infection not present. Discharge plan: Possible subacute rehab. PT and OT evaluations. horse racing manager is following. Impression and plan of care have been directed as dictated by the signing physician. Fide Zhang nurse practitioner acting as scribe for signing physici an. Objective - Vital Signs Vital signs: Vital Signs Temp 98.3 F 06/14/20 08:41 Pulse 72 06/14/20 08:41 Resp 17 06/14/20 07:00 BP 162/55 06/14/20 08:41 Pulse Ox 99 06/14/20 08:41 Intake & Output 06/13/20 06/14/20 06/14/20 18:59 06:59 18:59 Other: Voiding Method Bedside Commode Bedside Commode # Voids 1 1 # Bowel Movements 1 - Labs CBC & Chem 7: 06/12/20 20:48 06/12/20 20:48 Labs: Abnormal Lab Results - Last 24 Hours (Table) 06/13/20 06/13/20 06/13/20 Range/Units 11:13 16:35 20:22 POC Glucose (mg/dL) 149 H 163 H 159 H (75-99) mg/dL 06/14/20 Range/Units 06:44 POC Glucose (mg/dL) 136 H (75-99) mg/dL Microbiology - Last 24 Hours (Table) 06/12/20 20:54 Urine Culture - Preliminary Urine,Clean Catch
--- NOTE | 2020-06-14 11:18 | P.PN ---
Subjective HISTORY OF PRESENTING ILLNESS This is a pleasant 89-year-old female past medical history significant for permanent pacemaker implantations, hypertension, diabetes mellitus, dyslipidemia, coronary artery disease and mild memory impairment. She follows with Dr. Olivier out of [facility]. We reviewed his office note. She underwent an echocardiogram April 2019 revealing ejection fraction of 45% with apical hypokinesia, grade 1 diastolic dysfunction, mild to moderate aortic stenosis, moderate to severe aortic regurgitation, mild mitral regurgitation and mild mitral stenosis. 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 She is not currently on a/are due to renal insufficiency. Her pacemaker interrogation revealed normally functioning pacemaker approximately 4 years remaining battery with no evidence of ventricular or atrial arrhythmia. She is seen and examined sitting up in the chair in no acute distress. She denies chest pain, shortness of breath, dizziness or palpitations. She is complaining of lower back discomfort. Blood pressure 162/55 heart rate 72 afebrile maintaining oxygen saturation on room air. Repeat echocardiogram here reveals mildly impaired LV systolic function with ejection fraction 45-50%, apical septal LV wall motion hypokinesia, moder ate aortic stenosis with a mean gradient 32 mmHg, moderate aortic regurgitation, moderate mitral calcification with a mean gradient across the mitral valve is 8 mmHg, mild tricuspid regurgitation. Currently maintained on Lopressor 50 mg twice a day, lisinopril 10 mg daily, Lasix 20 mg daily, flecainide 50 mg twice a day, atorvastatin 10 mg daily and aspirin 81 mg daily. PHYSICAL EXAMINATION CONSTITUTIONAL: No apparent distress. HEENT: Head is normocephalic. Pupils are equal, round. Sclerae anicteric. Mucous membranes of the mouth are moist. No JVD. Bilateral carotid bruit. CHEST EXAMINATION: Lungs are clear to auscultation. No chest wall tenderness is noted on palpation or with deep breathing. HEART EXAMINATION: Regular rate and rhythm. S1, S2 heard. Systolic ejection murmur at all listening points worse at the apex, no gallops or rub. EXTREMITIES: 2+ peripheral pulses, no lower extremity edema and no calf tenderness. ASSESSMENT Fall, mechanical. No syncope or loss of consciousness Mild troponin leak of unclear etiology, likely secondary to renal function. No symptoms of chest pain or shortness of breath. Urinary tract infection Altered mental status Permanent pacemaker implantation Documented history of coronary artery disease, exact details unavailable Diabetes mellitus Hypertension Dyslipidemia PLAN Echocardiogram similar to previous obtained by her primary shop tailor last year. No evidence of arrhythmia to correlate with her fall. Ongoing medical management. We will continue to follow along as needed, please call with further questions or concerns. Follow with her shop tailor upon discharge. Nurse Practitioner note has been reviewed, I agree with a documented findings and plan of care. Patient was seen and examined. Objective - Vital Signs Vital signs: Vital Signs Temp 98.3 F 06/14/20 08:41 Pulse 72 06/14/20 08:41 Resp 17 06/14/20 07:00 BP 162/55 06/14/20 08:41 Pulse Ox 99 06/14/20 08:41 Intake & Output 06/13/20 06/14/20 06/14/20 18:59 06:59 18:59 Other: Voiding Method Bedside Commode Bedside Commode Toilet # Voids 1 1 1 # Bowel Movements 1 - Labs CBC & Chem 7: 06/12/20 20:48 06/12/20 20:48 Labs: Abnormal Lab Results - Last 24 Hours (Table) 06/13/20 06/13/20 06/13/20 Range/Units 11:13 16:35 20:22 POC Glucose (mg/dL) 149 H 163 H 159 H (75-99) mg/dL 06/14/20 Range/Units 06:44 POC Glucose (mg/dL) 136 H (75-99) mg/dL Microbiology - Last 24 Hours (Table) 06/12/20 20:54 Urine Culture - Preliminary Urine,Clean Catch
[2020-06-14 11:52] LABS: Glucose,Whole Blood 164 mg/dL (75-99)
[2020-06-14 17:13] LABS: Glucose,Whole Blood 106 mg/dL (75-99)
[2020-06-14 20:57] LABS: Glucose,Whole Blood 131 mg/dL (75-99)
[2020-06-14] MEDS: ATORVASTATIN 10 MG TAB PO SCH (21:42)
[2020-06-15 07:02] LABS: Glucose,Whole Blood 149 mg/dL (75-99)
[2020-06-15 07:33] LABS: HCT 33.5 % (34.0-46.0); HGB 10.8 gm/dL (11.4-16.0); Hypochromasia Slight; MCH 33.1 pg (25.0-35.0); MCHC 32.2 g/dL (31.0-37.0); MCV 102.9 fL (80.0-100.0); Macrocytosis Slight; Mean Platelet Volume 8.3; Platelet Count 230 k/uL (150-450); RBC 3.26 m/uL (3.80-5.40); RDW 13.9 % (11.5-15.5); WBC 12.5 k/uL (3.8-10.6)
[2020-06-15] MEDS: INSULIN ASPART (NovoLOG) 100 UNIT/ML VIAL SQ SCH ×4 (07:39→21:01)
[2020-06-15] MEDS ORDERED: FUROSEMIDE 10 MG/ML 4 ML VIAL IV STA (07:46)
[2020-06-15 07:56] LABS: Calcium 8.8 mg/dL (8.4-10.2); Potassium 4.4 mmol/L (3.5-5.1)
[2020-06-15] MEDS: ACETAMINOPHEN TAB 500 MG TAB PO SCH ×2 (08:43→21:00)
--- NOTE | 2020-06-15 08:45 | XR ---
EXAMINATION TYPE: XR chest 2V DATE OF EXAM: 06/15/2020 COMPARISON: Chest x-ray June 23, 2019. HISTORY: CHF and difficulty breathing. TECHNIQUE: Frontal and lateral views of the chest are obtained. FINDINGS: There is chronic medical change without suspicious new focal air space opacity, pleural ef fusion, or pneumothorax seen. The cardiac silhouette size remains enlarged with dual lead pacemaker and atherosclerotic aorta. The osseous structures remain demineralized. Old displaced fracture righ t proximal humerus shows interval healing. IMPRESSION: Chronic changes and cardiomegaly without acute pulmonary process.
[2020-06-15] MEDS: FUROSEMIDE 20 MG TAB PO SCH (08:46)
[2020-06-15] MEDS: LINAGLIPTIN 5 MG TABLET PO SCH (08:47)
[2020-06-15] MEDS: allopurinoL 100 MG TAB PO SCH (08:48)
[2020-06-15] MEDS: FAMOTIDINE 20 MG TAB PO SCH (08:48)
[2020-06-15] MEDS: ASPIRIN 81 MG PO SCH (08:49)
[2020-06-15] MEDS: FLECAINIDE 50 MG TAB PO SCH ×2 (08:50→21:00)
[2020-06-15] MEDS: HEPARIN SODIUM,PORCINE 5,000 UNIT/ML 1 ML VIAL SQ SCH ×2 (08:53→21:01)
[2020-06-15] MEDS: IPRATROPIUM-ALBUTEROL 3 ML NEB INHALATION SCH ×3 (08:56→20:11)
[2020-06-15] MEDS: lisinopriL 10 MG TAB PO SCH (09:06)
[2020-06-15] MEDS: METOPROLOL TARTRATE 50 MG TAB PO SCH ×2 (09:07→21:00)
[2020-06-15 11:49] LABS: Glucose,Whole Blood 146 mg/dL (75-99)
--- NOTE | 2020-06-15 14:34 | P.PN ---
Subjective Progress Note Date: 06/15/20 History of Present Illness This is an 89-year-old female patient of Dr. Walker with past medical history of coronary artery disease, hypertension, pacemaker. Patient came into [facility] emergency center due to confusion since Saturday. Patient also had a fall at home. She initially complained of left shoulder, left abdominal and left knee pain and neck pain. EKG reveals atrial sensed ventricular paced rhythm. CT of the abdomen and pelvis reveals evidence of possible ileitis and colitis. Brain/spine CT reveals mild to moderate generalized atrophy and mild patchy changes of chronic small vessel ischemic disease with no acute intracranial abnormality or fracture of the cervical spine. WBC 12.6, hemoglobin 12.3, platelets 180, sodium 134, potassium 4.2, creatinine 1.54 with a GFR of 30 and troponin 0.038. Patient is seen on the MedSurg floor. Patient states that she lives in a senior home alone. She has been a for 16 years. She states she had a fall and was able to get up but could not get to the phone. She states she was trying to get to the phone when she did fall. Patient was found to be afebrile, heart rate 71, blood pressure 102/49, pulse ox 97% on room air. Consult in place with cardiology for elevated troponin. No medications have been resumed and antibiotics changed to ceftriaxone. 06/14: Patient is seen in follow-up today. She has in the bathroom just finished washing up. She is currently doing this alone but reported that she needed to be assisted and there was concern about need for subacute rehab. PT and OT sh ould be seen her today. Mental status is improved. We will ask for case checker to follow for possible discharge knee. She has been afebrile, heart rate 72, blood pressure 162/55, pulse ox 99% on room air. Blood sugars are running between 136 263. Urine culture is in progress. 06/15: Patient is having some wheezing today and one dose of Lasix, nebulizer treatment and chest x-ray ordered. Pulse ox was at 90%. She has been afebrile, heart rate 75, blood pressure 164/62. Repeat chest x-ray reveals chronic changes and cardiomegaly without acute pulmonary process. Repeat blood work reveals WBC 12.5, hemoglobin 10.8. BUN 21 creatinine 0.89. Blood sugars running between 106 and 149. Patient has worked very well with physical therapy and recommendations are for home. We will plan to monitor respiratory status overnight and discharged home most likely tomorrow. Review of Systems Constitutional: No fever, no chills, no night sweats. No weight change. Re ports weakness,Reports fatigue Reports lethargy. No daytime sleepiness. EENT: No headache. No blurred vision or double vision, no loss of vision. No loss of Hearing, no ringing in the ears, no dizziness. No nasal drainage or congestion. No epistaxis. No sore throat. Lungs: Reports shortness of breath, cough, no sputum production. No wheezing. Cardiovascular: No chest pain, no lower extremity edema. No palpitations. No paroxysmal nocturnal dyspnea. No orthopnea. No lightheadedness or dizziness. No syncopal episodes. Abdominal: No abdominal pain. No nausea, vomiting. No diarrhea. No constipation. No bloody or tarry stools.. No loss of appetite. Genitourinary: No dysuria, increased frequency, urgency. No urinary retention. Musculoskeletal: No myalgias. Reports muscle weakness, Reports gait dysfunction, no frequent falls. No back pain. No neck pain. Integumentary: No wounds, no lesions. No rash or pruritus. No unusual bruising. No change in hair or nails. Neurologic: No aphasia. No facial droop. No change in mentation. No head injury. No headache. No paralysis. No paresthesia. Psychiatric: No depression. No anxiety. No mood swings. Endocrine: No abnormal blood sugars. No weight change. No excessive sweating or thirst. No cold intolerance. Physical Examination Gen: This is an 89-year-old female. Patient is resting in bed and appears to be comfortable. HEENT: Head is atraumatic, normocephalic. Pupils equal, round. Sclerae is anicteric. NECK: Supple. No JVD. No lymphadenopathy. No thyromegaly. LUNGS: Diminished breath sounds. No intercostal retractions. HEART: Regular rate and rhythm. Systolic ejection murmur. ABDOMEN: Soft. Bowel sounds are present. No masses. No tenderness. EXTREMITIES: No pedal edema. No calf tenderness. NEUROLOGICAL: Patient is awake, alert and oriented 3. Cranial nerves 2 through 12 are grossly intact. Assessment and Plan 1. Mechanical fall, x-rays all negative. 2. Metabolic encephalopathy secondary to UTI. Continue ceftriaxone. Await urine culture and sensitivity. 3. Elevated troponin without chest pain. Cardiology consult appreciated. Acute coronary syndrome ruled out. 4. History of permanent pacemaker implantation. Device to be interrogated. 5. Diabetes mellitus type 2. Continue Tradjenta, NovoLog scale. 6. Possible history of atrial fibrillation. Patient is on Lopressor 50 mg twice daily, flecainide 50 mg every 12 hours. Cardiology on consult 7. Hyperlipidemia. Continue atorvastatin 10 mg at bedtime. 8. Gastroesophageal reflux disease. Continue famotidine 20 mg daily. 9. Hypertension. Continue Lopressor 50 mg twice daily, Lasix 20 mg daily and lisinopril 10 mg daily. 10. Possible history of coronary artery disease. Continue aspirin 81 mg daily, Lipitor.. 11. Possible fluid overload secondary to IV fluids which been discontinued. Lasix IV 1. Chest x-ray showed no acute findings. 12. DVT prophylaxis. Heparin subcu. 13. COVID-19 infection not present. Discharge plan: Home tomorrow. Impression and plan of care have been directed as dictated by the signing physician. Fide Zhang nurse practitioner acting as scribe for signing physician. Objective - Vital Signs Vital signs: Vital Signs Temp 97.9 F 06/15/20 07:00 Pulse 75 06/15/20 07:00 Resp 17 06/15/20 07:00 BP 164/62 06/15/20 07:00 Pulse Ox 93 L 06/15/20 07:00 Intake & Output 06/14/20 06/15/20 06/15/20 18:59 06:59 18:59 Other: Voiding Method Toilet Toilet # Voids 1 2 - Labs CBC & Chem 7: 06/15/20 06:46 06/15/20 06:46 Labs: Abnormal Lab Results - Last 24 Hours (Table) 06/12/20 06/14/20 06/14/20 Range/Units 20:48 11:50 17:10 WBC (3.8-10.6) k/uL RBC (3.80-5.40) m/uL Hgb (11.4-16.0) gm/dL Hct (34.0-46.0) % MCV (80.0-100.0) fL POC Glucose (mg/dL) 164 H 106 H (75-99) mg/dL Hemoglobin A1c 7.0 H (4.0-6.0) % 06/14/20 06/15/20 06/15/20 Range/Units 20:56 06:46 07:01 WBC 12.5 H (3.8-10.6) k/uL RBC 3.26 L (3.80-5.40) m/uL Hgb 10.8 L (11.4-16.0) gm/dL Hct 33.5 L (34.0-46.0) % MCV 102.9 H (80.0-100.0) fL POC Glucose (mg/dL) 131 H 149 H (75-99) mg/dL Hemoglobin A1c (4.0-6.0) % Microbiology - Last 24 Hours (Table) 06/12/20 20:54 Urine Culture - Final Urine,Clean Catch Beta Hemolytic Strep Group G
[2020-06-15 16:26] LABS: Glucose,Whole Blood 131 mg/dL (75-99)
[2020-06-15 20:28] LABS: Glucose,Whole Blood 257 mg/dL (75-99)
[2020-06-15] MEDS: ATORVASTATIN 10 MG TAB PO SCH (21:00)
[2020-06-16 06:52] LABS: Glucose,Whole Blood 155 mg/dL (75-99)
[2020-06-16 07:28] VITALS: BP 162/68; RESP 17; TEMP 99.2
[2020-06-16] MEDS: INSULIN ASPART (NovoLOG) 100 UNIT/ML VIAL SQ SCH ×2 (07:49→12:10)
[2020-06-16] MEDS: FLECAINIDE 50 MG TAB PO SCH (07:50)
[2020-06-16] MEDS: lisinopriL 10 MG TAB PO SCH (07:50)
[2020-06-16] MEDS: METOPROLOL TARTRATE 50 MG TAB PO SCH (07:50)
[2020-06-16] MEDS: HEPARIN SODIUM,PORCINE 5,000 UNIT/ML 1 ML VIAL SQ SCH (07:50)
[2020-06-16] MEDS: FAMOTIDINE 20 MG TAB PO SCH (07:50)
[2020-06-16] MEDS: ASPIRIN 81 MG PO SCH (07:50)
[2020-06-16] MEDS: allopurinoL 100 MG TAB PO SCH (07:51)
[2020-06-16] MEDS: LINAGLIPTIN 5 MG TABLET PO SCH (07:51)
[2020-06-16] MEDS: FUROSEMIDE 20 MG TAB PO SCH (07:51)
[2020-06-16] MEDS: ACETAMINOPHEN TAB 500 MG TAB PO SCH (07:51)
--- NOTE | 2020-06-16 08:00 | P.DS ---
Providers Date of admission: 06/14/20 10:20 Expected date of discharge: 06/16/20 Attending physician: Teto Rollins Consults: 06/13/20 07:55 Consult Physician Routine Consulting Provider: Trip Granda Consult Reason/Comments: elevated trop Do you want consulting provider notified?: Yes Primary care physician: Kathy Walker [facility] Course: History of Present Illness This is an 89-year-old female patient of Dr. Walker with past medical history of coronary artery disease, hypertension, pacemaker. Patient came into [facility] emergency center due to confusion since Saturday. Patient also had a fall at home. She initially complained of left shoulder, left abdominal and left knee pain and neck pain. EKG reveals atrial sensed ventricular paced rhythm. CT of the abdomen and pelvis reveals evidence of possible ileitis and colitis. Brain/spine CT reveals mild to moderate generalized atrophy and mild patchy changes of chronic small vessel ischemic disease with no acute intracranial abnormality or fracture of the cervical spine. WBC 12.6, hemoglobin 12.3, platelets 180, sodium 134, potassium 4.2, creatinine 1.54 with a GFR of 30 and troponin 0.038. Patient is seen on the MedSur floor. Patient states that she lives in a senior home alone. She has been a for 16 years. She states she had a fall and was able to get up but could not get to the phone. She states she was trying to get to the phone when she did fall. Patient was found to be afebrile, heart rate 71, blood pressure 102/49, pulse ox 97% on room air. Consult in place with cardiology for elevated troponin. No medications have been resumed and antibiotics changed to ceftriaxone. 06/14: Patient is seen in follow-up today. She has in the bathroom just finished washing up. She is currently doing this alone but reported that she needed to be assisted and there was concern about need for subacute rehab. PT and OT should be seen her today. Mental status is improved. We will ask for field nurse case manager to follow for possible discharge knee. She has been afebrile, heart rate 72, blood pressure 162/55, pulse ox 99% on room air. Blood sugars are running between 136 263. Urine culture is in progress. 06/15: Patient is having some wheezing today and one dose of Lasix, nebulizer treatment and chest x-ray ordered. Pulse ox was at 90%. She has been afebrile, heart rate 75, blood pressure 164/62. Repeat chest x-ray reveals chronic changes and cardiomegaly without acute pulmonary process. Repeat blood work reveals WBC 12.5, hemoglobin 10.8. BUN 21 creatinine 0.89. Blood sugars running between 106 and 149. Patient has worked very well with physical therapy and recommendations are for home. We will plan to monitor respiratory status overnight and discharged home most likely tomorrow. 06/16: Patient's breathing status is back to baseline. She denies any shortness of breath. She has been afebrile, heart rate 65, blood pressure 102/68, pulse ox 96% on room air. Patient's discharge plan remains to return home. Patient will be discharged home today in stable condition. Assessment and Plan 1. Mechanical fall, x-rays all negative. 2. Metabolic encephalopathy secondary to UTI. 3. Elevated troponin. Acute coronary syndrome ruled out. 4. History of permanent pacemaker implantation. 5. Diabetes mellitus type 2. 6. No known history of atrial fibrillation. 7. Hyperlipidemia. 8. Gastroesophageal reflux disease. 9. Hypertension. 10. Possible history of coronary artery disease. 11. COVID-19 infection not present. Discharge plan: Home with [facility]. Impression and plan of care have been directed as dictated by the signing physician. Fide Zhang nurse practitioner acting as scribe for signing physician. Patient Condition at Discharge: Good Plan - Discharge Summary Discharge Rx Participant: Yes New Discharge Prescriptions: New Cefuroxime [Ceftin] 250 mg PO BID 3 Days #6 tab Continue Linagliptin [Tradjenta] 5 mg PO DAILY Acetaminophen [Tylenol Extra Strength] 500 mg PO BID allopurinoL [Zyloprim] 100 mg PO DAILY Atorvastatin [Lipitor] 10 mg PO HS Metoprolol Tartrate [Lopressor] 50 mg PO BID Flecainide [Tambocor] 50 mg PO Q12HR Aspirin [Adult Low Dose Aspirin EC] 325 mg PO DAILY lisinopriL [Zestril] 10 mg PO DAILY Famotidine [Pepcid] 20 mg PO BID Furosemide [Lasix] 20 mg PO DAILY #0 Discharge Medication List Acetaminophen [Tylenol Extra Strength] 500 mg PO BID 03/05/18 [History] Aspirin [Adult Low Dose Aspirin EC] 325 mg PO DAILY 03/05/18 [History] Atorvastatin [Lipitor] 10 mg PO HS 03/05/18 [History] Flecainide [Tambocor] 50 mg PO Q12HR 03/05/18 [History] Linagliptin [Tradjenta] 5 mg PO DAILY 03/05/18 [History] Metoprolol Tartrate [Lopressor] 50 mg PO BID 03/05/18 [History] allopurinoL [Zyloprim] 100 mg PO DAILY 03/05/18 [History] Famotidine [Pepcid] 20 mg PO BID 06/12/20 [History] lisinopriL [Zestril] 10 mg PO DAILY 06/12/20 [History] Cefuroxime [Ceftin] 250 mg PO BID 3 Days #6 tab 06/16/20 [Rx] Furosemide [Lasix] 20 mg PO DAILY #0 06/16/20 [Rx] Follow up Appointment(s)/Referral(s): Kathy Walker DO [Primary Care Provider] - 06/21/20 1:20 pm [facility] Visiting Nurse, [NON-STAFF] - Patient Instructions/Handouts: Dehydration (DC), Urinary Tract Infection in Women (DC), Fall Prevention for Older Adults (DC), Colitis (ED) Discharge Disposition: HOME WITH HOME HEALTH SERVICES
[2020-06-16] MEDS: IPRATROPIUM-ALBUTEROL 3 ML NEB INHALATION SCH (08:49)
[2020-06-16 09:04] VITALS: PULSE 78
[2020-06-16 11:27] LABS: Glucose,Whole Blood 167 mg/dL (75-99)
== END 2020-06-16 12:35 | disposition home health service (06) | DRG 689 ==
LOC: EC 19:54 → 4SSUR 22:30 → OBSVTOIN 06-14 10:20
PROVIDERS: ADMIT Internal Medicine; ATTEND Internal Medicine
DX: N39.0 Urinary tract infection, site not specified (principal); G93.41 Metabolic encephalopathy; E11.51 Type 2 diabetes mellitus with diabetic peripheral angiopathy without gangrene; E78.5 Hyperlipidemia, unspecified; E86.0 Dehydration; I10 Essential (primary) hypertension; I25.10 Atherosclerotic heart disease of native coronary artery without angina pectoris; I35.1 Nonrheumatic aortic (valve) insufficiency; I44.30 Unspecified atrioventricular block; I48.91 Unspecified atrial fibrillation; K21.9 Gastro-esophageal reflux disease without esophagitis; N28.9 Disorder of kidney and ureter, unspecified; W19.XXXA Unspecified fall, initial encounter; Y92.009 Unspecified place in unspecified non-institutional (private) residence as the place of occurrence of the external cause; R10.9 Unspecified abdominal pain; M25.562 Pain in left knee; M54.2 Cervicalgia; Z74.1 Need for assistance with personal care; Z11.59 Encounter for screening for other viral diseases; R79.89 Other specified abnormal findings of blood chemistry; Z60.2 Problems related to living alone; Z79.82 Long term (current) use of aspirin; Z79.84 Long term (current) use of oral hypoglycemic drugs; Z79.899 Other long term (current) drug therapy; Z82.49 Family history of ischemic heart disease and other diseases of the circulatory system; Z95.0 Presence of cardiac pacemaker
CPT/HCPCS: 36415; 70450; 71046; 72125; 74176; 80048; 80053; 81001; 83036; 84484; 85025; 85027; 85610; 85730; 87086; 93005; 93306; 94640; 96360; 96361; 99285

== ENCOUNTER → 2020-08-02 | Outpatient (CLI) | payer MEDICARE, BC ==
[2020-08-02 11:15] LABS: HCT 37.9 % (34.0-46.0); HGB 11.8 gm/dL (11.4-16.0); Hypochromasia Slight; MCH 30.9 pg (25.0-35.0); MCHC 31.2 g/dL (31.0-37.0); MCV 99.2 fL (80.0-100.0); Platelet Count 247 k/uL (150-450); RBC 3.82 m/uL (3.80-5.40); RDW 14.4 % (11.5-15.5); WBC 7.4 k/uL (3.8-10.6)
[2020-08-02 11:32] LABS: Appearance,Urine Clear (Clear); Bacteria,Urine Rare /hpf; Bilirubin,Urine Negative (Negative); Blood,Urine Trace (Negative); Color,Urine Light Yellow; Glucose,Urine (UA) Negative (Negative); Hyaline Casts,Urine 11 /lpf (0-2); Ketones,Urine Negative (Negative); Leukocyte Esterase,Urine Moderate (Negative); Mucus,Urine Rare /hpf; Nitrite,Urine Negative (Negative); PH, Urine 5.5 (5.0-8.0); Protein,Urine Trace (Negative); RBC,Urine 1 /hpf (0-5); Specific Gravity,Urine 1.014 (1.001-1.035); Squamous Epithelial Cell,Urine 3 /hpf (0-4); Urobilinogen,Urine <2.0 mg/dL (<2.0); WBC,Urine 9 /hpf (0-5)
[2020-08-02 11:48] LABS: Protein/Creatinine Ratio,Urine 0.34
[2020-08-02 20:03] LABS: % Iron Saturation 19.76 (12.00-45.00); African American GFR (CKD) 51.5 (60.0-200.0); Albumin 4.1 g/dL (3.80-4.90); Anion Gap 10.7 mmol/L (4.00-12.00); BUN/Creat Ratio 22.73 Ratio (12.00-20.00); Calcium 9.7 mg/dL (8.7-10.3); Carbon Dioxide 25.3 mmol/L (21.6-31.8); Magnesium 1.9 mg/dL (1.5-2.4); Non-African American GFR(CKD) 44.5 (60.0-200.0); Phosphorus 3.1 mg/dL (2.4-5.1); Uric Acid 6.8 mg/dL (2.9-7.7)
[2020-08-02 20:10] LABS: Ferritin 66.9 ng/mL (10.0-291.0)
== END | disposition home or self-care (01) ==
LOC: LABWHC1 09:55
PROVIDERS: ATTEND Internal Medicine Nephrology
DX: N18.3 Chronic kidney disease, stage 3 (moderate) (principal); D63.1 Anemia in chronic kidney disease; N39.0 Urinary tract infection, site not specified; E55.9 Vitamin D deficiency, unspecified; N25.81 Secondary hyperparathyroidism of renal origin; M10.9 Gout, unspecified; R80.9 Proteinuria, unspecified
CPT/HCPCS: 36415; 80048; 81001; 82040; 82306; 82570; 82728; 83540; 83550; 83735; 83970; 84100; 84156; 84550; 85027

== ENCOUNTER 2020-10-21 08:40 | Inpatient (IN) | payer MEDICARE, BC ==
--- NOTE | 2020-10-21 09:00 | ED ---
Chest Pain HPI - General Chief Complaint: Chest Pain Stated Complaint: Chest pain Time Seen by Provider: 10/21/20 08:47 Source: patient, family, RN notes reviewed, old records reviewed Mode of arrival: wheelchair Limitations: altered mental status - History of Present Illness Initial Comments: This is a 89-year-old female with a history of UTI and dehydration and colitis pacemaker squamous cell cancer among other issues including chronic kidney disease who was brought in by her daughter this morning with complaints of the onset of chest pain early this morning during the night midsternal with some radiation up to the neck. The pain was associated with some shortness of breath achy in nature mild to moderate in severity. Currently minimal pain. No cough no fevers chills or sweats. Additionally the patient's been demonstrating some increased confusion for the past 2 days. No dysuria hematuria no fever chills or sweats again. MD Complaint: chest pain - Related Data Home Medications Medication Instructions Recorded Confirmed Acetaminophen [Tylenol Extra 500 mg PO BID 03/05/18 10/21/20 Strength] Atorvastatin [Lipitor] 10 mg PO HS 03/05/18 10/21/20 Flecainide [Tambocor] 50 mg PO Q12HR 03/05/18 10/21/20 Linagliptin [Tradjenta] 5 mg PO DAILY 03/05/18 10/21/20 Metoprolol Tartrate [Lopressor] 50 mg PO BID 03/05/18 10/21/20 allopurinoL [Zyloprim] 100 mg PO DAILY 03/05/18 10/21/20 lisinopriL [Zestril] 10 mg PO BID 06/12/20 10/21/20 Aspirin EC [Ecotrin] 325 mg PO DAILY 10/21/20 10/21/20 Ergocalciferol [Vitamin D2] 50,000 unit PO Q14D 10/21/20 10/21/20 Famotidine 20 mg PO BID 10/21/20 10/21/20 Ferrous Sulfate [Feosol] 325 mg PO Q48H 10/21/20 10/21/20 amLODIPine [Norvasc] 5 mg PO DAILY 10/21/20 10/21/20 Previous Rx's Medication Instructions Recorded Furosemide [Lasix] 20 mg PO DAILY #0 06/16/20 Allergies Allergy/AdvReac Type Severity Reaction Status Date / Time simvastatin [From Zocor] Allergy Unknown Verified 10/21/20 09:10 Review of Systems ROS Statement: Those systems with pertinent positive or pertinent negative responses have been documented in the HPI. ROS Other: All systems not noted in ROS Statement are negative. EKG Findings - EKG Results: EKG: interpreted by ERMD (EKG reveals a AV dual paced rhythm rate 65 AL to 66 QRS 220 QT since QTC 528/549 this does compared with EKG dated 06/12/20) Past Medical History Past Medical History: Coronary Artery Disease (CAD), Diabetes Mellitus, H ypertension Additional Past Medical History / Comment(s): varicose veins, constipation/diarrhea, "slow heart rate", type 2 diabetic History of Any Multi-Drug Resistant Organisms: None Reported Past Surgical History: Cholecystectomy, Pacemaker Additional Past Surgical History / Comment(s): nahid cataracts Past Anesthesia/Blood Transfusion Reactions: No Reported Reaction Type of Cardiac Device: Permanent Pacemaker Device Placement Date:: 2011 Past Psychological History: No Psychological Hx Reported Smoking Status: Never smoker Past Alcohol Use History: None Reported Past Drug Use History: None Reported - Past Family History Mother Family Medical History: No Reported History Additional Family Medical History / Comment(s): Mother at age 70 from myocardial infarction. Brother(s) Family Medical History: Cancer Additional Family Medical History / Comment(s): Patient had a total of 7 brothers and sisters. One brother still alive at age 92. Patient does not recall medical history and other siblings. Sister(s) Family Medical History: Cancer Father Additional Family Medical History / Comment(s): Father in his 60s from coronary artery disease. General Exam - General Exam Comments Initial Comments: This is a well-developed well-nourished awake alert oriented 3 female Limitations: altered mental status General appearance: alert, in no apparent distress Head exam: Present: atraumatic, normocephalic, normal inspection Eye exam: Present: normal appearance, PERRL, EOMI. Absent: scleral icterus, conjunctival injection, periorbital swelling ENT exam: Present: normal exam, mucous membranes moist Neck exam: Present: normal inspection, full ROM, other (No stridor JVD or bruits). Absent: tenderness, meningismus, lymphadenopathy Respiratory exam: Present: normal lung sounds bilaterally. Absent: respiratory distress, wheezes, rales, rhonchi, stridor, chest wall tenderness Cardiovascular Exam: Present: regular rate, normal rhythm, normal heart sounds. Absent: systolic murmur, diastolic murmur, rubs, gallop, clicks GI/Abdominal exam: Present: soft, normal bowel sounds. Absent: distended, tenderness, guarding, rebound, rigid Extremities exam: Present: normal inspection, full ROM, normal capillary refill. Absent: tenderness, pedal edema, joint swelling, calf tenderness Back exam: Present: normal inspection Neurological exam: Present: alert, oriented X3, CN II-XII intact Psychiatric exam: Present: normal affect, normal mood Skin exam: Present: warm, dry, intact, normal color. Absent: rash Course Vital Signs 10/21/20 10/21/20 08:43 10:21 Temperature 98.6 F 98.2 F Pulse Rate 61 68 Respiratory 18 16 Rate Blood Pressure 138/65 129/55 O2 Sat by Pulse 96 95 Oximetry - Reevaluation(s) Reevaluation #1: 10/21/20 10:48 Reevaluation the patient finds the patient rested comfortably I did discuss the initial findings with the patient family members. Patient has no chest pain no shortness of breath at this time. Chest Pain MDM - MDM I did review the imaging and report evidence a left sided effusion. Did discuss findings with patient family patient does have evidence of an NSTEMI patient lab work EKG showed no acute changes from previous EKG. Additionally elevated BNP consistent with CHF. He'll be admitted with cardiology consultation. Critical Care Time Critical Care Time: Yes Total Critical Care Time: 39 Critical Care Time: 39 minutes of critical care time which included initial presentation with history physical labs x-rays multiple re-evaluations the patient multiple discussions with the patient family regarding findings review of old charting. Discussed with cardiology and with the admitting service admission orders and documentation of the above Disposition Clinical Impression: Chest pain, Acute non-ST elevation myocardial infarction (NSTEMI), Pleural effusion, CHF (congestive heart failure), Leukocytosis Disposition: [facility] Condition: Fair Referrals: Kathy Walker DO [Primary Care Provider] - 1-2 days
[2020-10-21 09:19] LABS: Basophils % (A) 0 %; Eosinophils # (A) 0.2 k/uL (0-0.7); Eosinophils % (A) 1 %; HCT 40.9 % (34.0-46.0); HGB 12.7 gm/dL (11.4-16.0); Lymphocytes # (A) 1.4 k/uL (1.0-4.8); Lymphocytes % (A) 8 %; MCH 29.7 pg (25.0-35.0); MCV 95.9 fL (80.0-100.0); Mean Platelet Volume 7.7; Monocytes # (A) 0.8 k/uL (0-1.0); Monocytes % (A) 5 %; Neutrophils # (A) 14.2 k/uL (1.3-7.7); Neutrophils % (A) 84 %; Platelet Count 453 k/uL (150-450); RBC 4.27 m/uL (3.80-5.40); RDW 13.8 % (11.5-15.5); WBC 16.8 k/uL (3.8-10.6)
[2020-10-21 09:29] LABS: Albumin 3.6 g/dL (3.5-5.0); Calcium 9.7 mg/dL (8.4-10.2); Total Protein 6.8 g/dL (6.3-8.2)
[2020-10-21 09:30] LABS: Total Bilirubin 0.8 mg/dL (0.2-1.3)
[2020-10-21 09:31] LABS: Magnesium 2.2 mg/dL (1.6-2.3); Potassium 5.3 mmol/L (3.5-5.1)
--- NOTE | 2020-10-21 09:51 | XR ---
EXAMINATION TYPE: XR chest 2V DATE OF EXAM: 10/21/2020 COMPARISON: 06/15/2020 INDICATION: Chest pain, left shoulder pain TECHNIQUE: Frontal and lateral views of the chest are obtained. FINDINGS: The heart size is normal. The pulmonary vasculature is normal. There is a small left pleural effusion. Minimal right pleural effusion is present. Pacemaker overlies left chest. IMPRESSION: 1. Increasing small left pleural effusion. Stable minimal right pleural effusion
[2020-10-21 10:05] LABS: Partial Thromboplastin Time 25.6 sec (22.0-30.0); Prothrombin Time 10.1 sec (9.0-12.0)
[2020-10-21] MEDS ORDERED: FUROSEMIDE 10 MG/ML 4 ML VIAL IV STA (10:09)
[2020-10-21 10:32] LABS: Appearance,Urine Cloudy (Clear); Bilirubin,Urine Negative (Negative); Blood,Urine Small (Negative); Color,Urine Yellow; Glucose,Urine (UA) Negative (Negative); Hyaline Casts,Urine 5 /lpf (0-2); Ketones,Urine Negative (Negative); Leukocyte Esterase,Urine Large (Negative); Mucus,Urine Rare /hpf; Nitrite,Urine Negative (Negative); Protein,Urine 1+ (Negative); RBC,Urine 5 /hpf (0-5); Specific Gravity,Urine 1.018 (1.001-1.035); Squamous Epithelial Cell,Urine 3 /hpf (0-4); Urobilinogen,Urine <2.0 mg/dL (<2.0); WBC,Urine 8 /hpf (0-5)
[2020-10-21] MEDS ORDERED: HEPARIN SODIUM,PORCINE 5,000 UNIT/ML 1 ML VIAL IV PRN (10:49)
[2020-10-21] MEDS ORDERED: HEPARIN SODIUM,PORCINE 5,000 UNIT/ML 1 ML VIAL IV ONE (10:49)
[2020-10-21] MEDS ORDERED: NITROGLYCERIN SL TABS 0.4 MG TAB SUBLINGUAL PRN (10:52)
[2020-10-21] MEDS: HEPARIN SOD,PORK IN 0.45% NACL 25,000 UNIT in 0.45% NACL 1 250ML.BAG IV SCH (10:58)
[2020-10-21] MEDS: SODIUM CHLORIDE 0.9% 1,000 ML IV SCH (11:00)
[2020-10-21] MEDS: NITROGLYCERIN OINT 1 INCH/GM PACKET TOPICAL SCH ×4 (12:30→23:01)
--- NOTE | 2020-10-21 12:40 | P.CRDCN ---
History of Present Illness Consult date: 10/21/20 History of present illness: CHIEF COMPLAINT: Chest pain HISTORY OF PRESENT ILLNESS: This is a 89-year old female with a past medical history significant for hypertension, diabetes mellitus, and previous pacemaker insertion. Patient follows with a stockroom helper out of [facility], Dr. Mikey Mark. We have been asked to see the patient in consultation for chest pain. Patient examined this morning in the emergency room. Patient's daughter is at the bedside. Patient is somewhat of a poor historian and majority of HPI is obtained from the patient's daughter. Patient states she was woken up from a sleep in the middle of the night with chest pain. She states the pain was in the middle of her chest and also the left side of her chest. She denied radiation to her jaw neck or arm. She did report back pain at the time which her daughter states is chronic for her. The patient denied any shortness of breath. Denies nausea or vomiting. At the time of examination, she is denying any chest discomfort. Patient's daughter states she underwent a cardiac catheterization in 2018 at [facility]. She states she did not require any stents at that time. DIAGNOSTICS: EKG reveals paced rhythm Chest xray increasing small left pleural effusion. Stable minimal right pleural effusion. Laboratory data: WBC 16.8. Hemoglobin of 12.7. Platelet count 453. Sodium 139. Potassium 5.3. BUN 32. Creatinine 1.13. Magnesium 2.2. BNP 6660. Troponin 0.301. Current home cardiac medications include lisinopril 10 mg twice a day, Norvasc 5 mg daily, metoprolol 50 mg twice a day, Lasix 20 mg daily, flecainide 50 mg twice a day, Lipitor 10 mg daily, aspirin 325 mg daily Echocardiogram from May 2020 revealed ejection fraction 45-50%, moderate aortic regurgitation, moderate aortic stenosis, mild mitral regurgitation and mild tricuspid regurgitation. REVIEW OF SYSTEMS: At the time of my exam: CONSTITUTIONAL: Denies fever or chills. HEENT: Denies blurred vision, vision changes, or eye pain. Denies hemoptysis CARDIOVASCULAR: Denies chest pain, orthopnea, PND or palpitations RESPIRATORY: No shortness of breath. GASTROINTESTINAL: Denies abdominal pain. Denies nausea or vomiting. HEMATOLOGIC: Denies bleeding disorders. GENITOURINARY: Denies any blood in urine. SKIN: Denies pruitis. Denies rash. PHYSICAL EXAM: VITAL SIGNS: Reviewed. GENERAL: Well-developed in no acute distress. HEENT: Head is normocephalic. Pupils are equal, round. Sclerae anicteric. Mucous membranes of the mouth are moist. Neck supple. No JVD or thyromegaly LUNGS: Respirations even and unlabored. Lungs diminished. Permanent pacemaker to left anterior chest. HEART: Regular rate and rhythm. S1 and S2 heard. Systolic murmur noted. ABDOMEN: Soft. Nondistended. Nontender. EXTREMITIES: Normal range of motion. No clubbing or cyanosis. Peripheral pulses intact. No lower extremity edema NEUROLOGIC: Awake and alert. Oriented x 2-3. ASSESSMENT: Non-ST elevated myocardial infarction Possible acute exacerbation of chronic diastolic heart failure, EF 50% History of permanent pacemaker insertion Valvular heart disease: moderate aortic regurgitation, moderate aortic stenosis, mild mitral regurgitation and mild tricuspid regurgitation. Hypertension Hyperlipidemia Diabetes mellitus, type II PLAN: Resume home cardiac medications Continue IV Lasix Monitor kidney function Accurate I&O Continue IV heparin drip Obtain records from patients stockroom helper Discussed options with patient including medical management versus cardiac cath. Patient and daughter will think about options. Will re-assess patient tomorrow morning. Nurse practitioner note has been reviewed by physician. Signing provider agrees with the documented findings, assessment, and plan of care. Past Medical History Past Medical History: Coronary Artery Disease (CAD), Diabetes Mellitus, Hypertension Additional Past Medical History / Comment(s): varicose veins, constipation/diarrhea, "slow heart rate", type 2 diabetic History of Any Multi-Drug Resistant Organisms: None Reported Past Surgical History: Cholecystectomy, Pacemaker Additional Past Surgical History / Comment(s): nahid cataracts Past Anesthesia/Blood Transfusion Reactions: No Reported Reaction Type of Cardiac Device: Permanent Pacemaker Device Placement Date:: 2011 Past Psychological History: No Psychological Hx Reported Smoking Status: Never smoker Past Alcohol Use History: None Reported Past Drug Use History: None Reported - Past Family History Mother Family Medical History: No Reported History Additional Family Medical History / Comment(s): Mother at age 70 from myocardial infarction. Brother(s) Family Medical History: Cancer Additional Family Medical History / Comment(s): Patient had a total of 7 brothers and sisters. One brother still alive at age 92. Patient does not recall medical history and other siblings. Sister(s) Family Medical History: Cancer Father Additional Family Medical History / Comment(s): Father in his 60s from coronary artery disease. Medications and Allergies Home Medications Medication Instructions Recorded Confirmed Type Acetaminophen [Tylenol Extra 500 mg PO BID 03/05/18 10/21/20 History Strength] Atorvastatin [Lipitor] 10 mg PO HS 03/05/18 10/21/20 History Flecainide [Tambocor] 50 mg PO Q12HR 03/05/18 10/21/20 History Linagliptin [Tradjenta] 5 mg PO DAILY 03/05/18 10/21/20 History Metoprolol Tartrate [Lopressor] 50 mg PO BID 03/05/18 10/21/20 History allopurinoL [Zyloprim] 100 mg PO DAILY 03/05/18 10/21/20 History lisinopriL [Zestril] 10 mg PO BID 06/12/20 10/21/20 History Furosemide [Lasix] 20 mg PO DAILY #0 06/16/20 10/21/20 Rx Aspirin EC [Ecotrin] 325 mg PO DAILY 10/21/20 10/21/20 History Ergocalciferol [Vitamin D2] 50,000 unit PO Q14D 10/21/20 10/21/20 History Famotidine 20 mg PO BID 10/21/20 10/21/20 History Ferrous Sulfate [Feosol] 325 mg PO Q48H 10/21/20 10/21/20 History amLODIPine [Norvasc] 5 mg PO DAILY 10/21/20 10/21/20 History Allergies Allergy/AdvReac Type Severity Reaction Status Date / Time simvastatin [From Zocor] Allergy Unknown Verified 10/21/20 09:10 Physical Exam Vitals: Vital Signs Temp Pulse Resp BP Pulse Ox 10/21/20 10:21 98.2 F 68 16 129/55 95 10/21/20 08:43 98.6 F 61 18 138/65 96 Intake and Output 10/20/20 10/21/20 10/21/20 22:59 06:59 14:59 Other: Weight 58.967 kg Results 10/21/20 09:04 10/21/20 09:04 Cardiac Enzymes 10/21/20 10/21/20 Range/Units 09:04 09:04 AST 33 (14-36) U/L Troponin I 0.301 H* (0.000-0.034) ng/mL Coagulation 10/21/20 Range/Units 09:04 PT 10.1 (9.0-12.0) sec APTT 25.6 (22.0-30.0) sec CBC 10/21/20 Range/Units 09:04 WBC 16.8 H (3.8-10.6) k/uL RBC 4.27 (3.80-5.40) m/uL Hgb 12.7 (11.4-16.0) gm/dL Hct 40.9 (34.0-46.0) % Plt Count 453 H (150-450) k/uL Comprehensive Metabolic Panel 10/21/20 Range/Units 09:04 Sodium 139 (137-145) mmol/L Potassium 5.3 H (3.5-5.1) mmol/L Chloride 107 (98-107) mmol/L Carbon Dioxide 20 L (22-30) mmol/L BUN 32 H (7-17) mg/dL Creatinine 1.13 H (0.52-1.04) mg/dL Glucose 210 H (74-99) mg/dL Calcium 9.7 (8.4-10.2) mg/dL AST 33 (14-36) U/L ALT 17 (4-34) U/L Alkaline Phosphatase 81 (38-126) U/L Total Protein 6.8 (6.3-8.2) g/dL Albumin 3.6 (3.5-5.0) g/dL Current Medications Generic Name Dose Route Start Last Admin Trade Name Freq PRN Reason Stop Dose Admin Acetaminophen 500 mg 10/21/20 21:00 Acetaminophen Tab 500 Mg Tab PO BID [facility] Allopurinol 100 mg 10/22/20 09:00 Allopurinol 100 Mg Tab PO DAILY [facility] Amlodipine Besylate 5 mg 10/22/20 09:00 Amlodipine 5 Mg Tab PO DAILY [facility] Aspirin 325 mg 10/22/20 09:00 Aspirin 325 Mg Tab PO DAILY [facility] Atorvastatin Calcium 10 mg 10/21/20 21:00 Atorvastatin 10 Mg Tab PO HS [facility] Ergocalciferol 50,000 unit 11/03/20 09:00 Ergocalciferol 50,000 Unit Cap PO Q14D [facility] Famotidine 20 mg 10/21/20 21:00 Famotidine 20 Mg Tab PO BID [facility] Ferrous Sulfate 325 mg 10/23/20 07:30 Ferrous Sulfate 325 Mg Tab PO Q48H [facility] Flecainide Acetate 50 mg 10/21/20 21:00 Flecainide 50 Mg Tab PO Q12HR [facility] Furosemide 40 mg 10/21/20 21:00 Furosemide 10 Mg/Ml 4 Ml Vial IV Q12HR [facility] Heparin Sodium (Porcine) 0 unit 10/21/20 10:49 Heparin Sodium,Porcine 5,000 Unit/Ml 1 Ml Vial IV PER PROTOCOL PRN Low PTT Protocol Heparin Sodium/Sodium Chloride 250 mls @ 7.076 mls/hr 10/21/20 11:00 10/21/20 10:58 25,000 unit/ Sodium Chloride IV 12 units/kg/hr .Q24H [facility] 7.076 mls/hr Administration Protocol 12 UNITS/KG/HR Sodium Chloride 1,000 mls @ 20 mls/hr 10/21/20 11:00 10/21/20 11:00 Saline 0.9% IV Not Given .Q24H [facility] Linagliptin 5 mg 10/22/20 09:00 Linagliptin 5 Mg Tablet PO DAILY [facility] Lisinopril 10 mg 10/21/20 21:00 Lisinopril 10 Mg Tab PO BID [facility] Metoprolol Tartrate 50 mg 10/21/20 21:00 Metoprolol Tartrate 50 Mg Tab PO BID [facility] Nitroglycerin 0.4 mg 10/21/20 10:52 Nitroglycerin Sl Tabs 0.4 Mg Tab SUBLINGUAL Q5M PRN Chest Pain Nitroglycerin 0.5 inch 10/21/20 12:00 Nitroglycerin Oint 1 Inch/Gm Packet TOPICAL Q6HR [facility] Intake and Output 10/20/20 10/21/20 10/21/20 22:59 06:59 14:59 Other: Weight 58.967 kg Patient Weight 10/22/20 06:59 Weight 58.967 kg 10/21/20 09:04 10/21/20 09:04
--- NOTE | 2020-10-21 17:08 | P.HPIM ---
History of Present Illness H&P Date: 10/21/20 This is a pleasant 89-year-old patient of Dr. Walker with known history of CAD hypertension pacemaker device, diabetes mellitus type 2, systolic dysfunction, moderate aortic stenosis and moderate aortic regurgitation, hypertension admitted to the emergency room secondary to an episode of chest pain that woke her up from her sleep. These lasted until her ER evaluation around 9:00 the morning for which she was subsequently seen in the emergency room. She follows with a pin pusher [facility] Dr. Mark for which his her last visit was over a year ago. Her last cardiac cath was in 2018, did not require any stents at that time. She has also prior history of cholecystectomy, chronic back pain, costochondritis. Patient denies any aspiration, no cough no fever, patient denies any recent trauma, and no pleurisy. Patient was seen with the daughter at bedside, who provides most of the foot patient. Patient has chest pressure left-sided she is not sure whether this is related to her pacemaker use or her heart she says, there is no radiation to the jaw or neck. No lightheadedness no syncope, patient denies any edema, or calf pain. She denies any aspiration no GI bleed, no melena When seen in the emergency room troponin garcia elevated 0.301, BNP of 6660, creatinine 1.13, hemoglobin 12.7, but fashion 5.3, WBC count of 16.8, chest x- ray shows increasing small left pleural effusion, stable minimal right pleural effusion, EKG shows paced rhythm, agents admitted for an STEMI, cardiology is consulted, transferred to the medical floor, with no current intervention except for medical management. Old report showed echocardiogram in May 2020, EF 45-50%, moderate AR, moderate left ear, mild MR and mild TR Review of Systems Constitutional: Reports as per HPI, Denies anorexia, Denies chills, Denies chronic headaches, Denies chronic pain, Denies daytime sleepiness, Denies fatigue, Denies fever, Denies lethargy, Denies malaise, Denies night sweats, Denies poor appetite, Denies sweats, Denies weakness, Denies weight gain, Denies weight loss Ears, nose, mouth and throat: Reports as per HPI Cardiovascular: Reports as per HPI, Reports chest pain, Reports decreased exercise tolerance, Denies claudication, Denies dyspnea on exertion, Denies edema, Denies high blood pressure, Denies irregular heart beat, Denies leg edema, Denies lightheadedness, Denies orthopnea, Denies palpitations, Denies paroxysmal nocturnal dyspnea, Denies phlebitis, Denies rapid heart beat, Denies shortness of breath, Denies syncope Respiratory: Reports as per HPI, Denies congestion, Denies cough, Denies cough with sputum, Denies dyspnea, Denies excessive sputum, Denies hemoptysis, Denies home oxygen, Denies pain on inspiration, Denies pleurisy, Denies respiratory infections, Denies sleep apnea, Denies snoring, Denies wheezing Gastrointestinal: Reports as per HPI, Denies abdominal pain, Denies belching, Denies bloating, Denies BRBPR, Denies change in bowel habits, Denies coffee ground emesis, Denies constipation, Denies diarrhea, Denies dyspepsia, Denies early satiety, Denies excessive gas, Denies heartburn, Denies hematemesis, Denies hematochezia, Denies indigestion, Denies jaundice, Denies lactose intolerance, Denies loss of appetite, Denies melena, Denies nausea, Denies vomiting Genitourinary: Reports as per HPI Menstruation: Reports as per HPI Musculoskeletal: Reports as per HPI Integumentary: Reports as per HPI, Denies acne, Denies boils, Denies brittle nails, Denies change in hair/nails, Denies color changes, Denies darkening of s kin, Denies depigmentation, Denies dryness, Denies foot/leg ulcers, Denies growths, Denies hirsutism, Denies lesions, Denies onychomycosis, Denies pruritus, Denies rash, Denies sores, Denies striae, Denies unusual bruising, Denies wounds Neurological: Reports as per HPI, Denies aphasia, Denies ataxia, Denies balance difficulties, Denies burning pain, Denies change in mentation, Denies change in smell/taste, Denies change in speech, Denies confusion, Denies convulsions, D enies double vision, Denies gait dysfunction, Denies head injury, Denies headaches, Denies hearing difficulties, Denies lack of coordination, Denies loss of vision, Denies memory loss, Denies migraines, Denies motor disturbance, Denies numbness, Denies paralysis, Denies paresthesias, Denies seizures, Denies sensory deficit, Denies spasticity, Denies syncope, Denies tic, Denies tingling, Denies transient paralysis, Denies tremors, Denies vertigo, Denies weakness, Denies visual changes Psychiatric: Reports as per HPI, Reports confusion, Reports difficulty concentrating, Reports sleep disturbances Endocrine: Reports as per HPI, Denies cold intolerance, Denies deepening of the voice, Denies excessive sweating, Denies excessive thirst, Denies fatigue, Denies flushing, Denies heat intolerance, Denies high blood sugars, Denies increase in ring/shoe/hat size, Denies low blood sugars, Denies nocturia, Denies palpitations, Denies polydipsia, Denies polyphagia, Denies polyuria, Denies proptosis, Denies recent glucocorticoid use, Denies thyroid mass, Denies weight change Hematologic/Lymphatic: Reports as per HPI, Denies easy bleeding, Denies easy bruising, Denies lymphadenopathy, Denies lymphedema, Denies thrombophilia Allergic/Immunologic: Reports as per HPI, Denies allergic rhinitis, Denies anaphylaxis, Denies angioedema, Denies gluten intolerance, Denies persistent infections, Denies seasonal allergies, Denies urticaria, Denies wheezing Past Medical History Past Medical History: Coronary Artery Disease (CAD), Diabetes Mellitus, Hypertension Additional Past Medical History / Comment(s): varicose veins, constipation/di arrhea, "slow heart rate", type 2 diabetic History of Any Multi-Drug Resistant Organisms: None Reported Past Surgical History: Cholecystectomy, Pacemaker Additional Past Surgical History / Comment(s): nahid cataracts Past Anesthesia/Blood Transfusion Reactions: No Reported Reaction Type of Cardiac Device: Permanent Pacemaker Device Placement Date:: 2011 Past Psychological History: No Psychological Hx Reported Smoking Status: Never smoker Past Alcohol Use History: None Reported Past Drug Use History: None Reported - Past Family History Mother Family Medical History: No Reported History Additional Family Medical History / Comment(s): Mother at age 70 from myocardial infarction. Brother(s) Family Medical History: Cancer Additional Family Medical History / Comment(s): Patient had a total of 7 bro thers and sisters. One brother still alive at age 92. Patient does not recall medical history and other siblings. Sister(s) Family Medical History: Cancer Father Additional Family Medical History / Comment(s): Father in his 60s from coronary artery disease. Medications and Allergies Home Medications Medication Instructions Recorded Confirmed Type Acetaminophen [Tylenol Extra 500 mg PO BID 03/05/18 10/21/20 History Strength] Atorvastatin [Lipitor] 10 mg PO HS 03/05/18 10/21/20 History Flecainide [Tambocor] 50 mg PO Q12HR 03/05/18 10/21/20 History Linagliptin [Tradjenta] 5 mg PO DAILY 03/05/18 10/21/20 History Metoprolol Tartrate [Lopressor] 50 mg PO BID 03/05/18 10/21/20 History allopurinoL [Zyloprim] 100 mg PO DAILY 03/05/18 10/21/20 History lisinopriL [Zestril] 10 mg PO BID 06/12/20 10/21/20 History Furosemide [Lasix] 20 mg PO DAILY #0 06/16/20 10/21/20 Rx Aspirin EC [Ecotrin] 325 mg PO DAILY 10/21/20 10/21/20 History Ergocalciferol [Vitamin D2] 50,000 unit PO Q14D 10/21/20 10/21/20 History Famotidine 20 mg PO BID 10/21/20 10/21/20 History Ferrous Sulfate [Feosol] 325 mg PO Q48H 10/21/20 10/21/20 History amLODIPine [Norvasc] 5 mg PO DAILY 10/21/20 10/21/20 History Allergies Allergy/AdvReac Type Severity Reaction Status Date / Time simvastatin [From Zocor] Allergy Unknown Verified 10/21/20 09:10 Physical Exam Vitals: Vital Signs Temp Pulse Resp BP Pulse Ox 10/21/20 10:21 98.2 F 68 16 129/55 95 10/21/20 08:43 98.6 F 61 18 138/65 96 Intake and Output 10/20/20 10/21/20 10/21/20 22:59 06:59 14:59 Other: Weight 58.967 kg - Constitutional General appearance: cooperative, no acute distress - EENT Eyes: anicteric sclerae, EOMI, PERRLA, dentition normal ENT: NA/AT, normal oropharynx - Neck Neck: normal ROM - Respiratory Respiratory: bilateral: CTA, negative: diminished, dullness - Cardiovascular Rhythm: regular Heart sounds: normal: S1, S2 Abnormal Heart Sounds: no systolic murmur, no diastolic murmur, no rub, no S3 Gallop, no S4 Gallop, no click, no other - Gastrointestinal General gastrointestinal: normal bowel sounds, soft - Integumentary Integumentary: no calor, no cellulitis, no cyanotic, no decreased turgor, no flushed, no jaundiced, normal, normal turgor, no pale, no rash, no ulcer - Neurologic Neurologic: CNII-XII intact - Musculoskeletal Musculoskeletal: gait normal - Psychiatric Psychiatric: A&O x's 3, appropriate affect Results CBC & Chem 7: 10/21/20 09:04 10/21/20 09:04 Labs: Abnormal Lab Results - Last 24 Hours (Table) 10/21/20 10/21/20 10/21/20 Range/Units 09:04 09:04 09:04 WBC 16.8 H (3.8-10.6) k/uL Plt Count 453 H (150-450) k/uL Neutrophils # 14.2 H (1.3-7.7) k/uL Potassium 5.3 H (3.5-5.1) mmol/L Carbon Dioxide 20 L (22-30) mmol/L BUN 32 H (7-17) mg/dL Creatinine 1.13 H (0.52-1.04) mg/dL Glucose 210 H (74-99) mg/dL Troponin I 0.301 H* (0.000-0.034) ng/mL Urine Appearance (Clear) Urine Protein (Negative) Urine Blood (Negative) Ur Leukocyte Esterase (Negative) Urine WBC (0-5) /hpf Hyaline Casts (0-2) /lpf Urine Mucus (None) /hpf 10/21/20 Range/Units 10:20 WBC (3.8-10.6) k/uL Plt Count (150-450) k/uL Neutrophils # (1.3-7.7) k/uL Potassium (3.5-5.1) mmol/L Carbon Dioxide (22-30) mmol/L BUN (7-17) mg/dL Creatinine (0.52-1.04) mg/dL Glucose (74-99) mg/dL Troponin I (0.000-0.034) ng/mL Urine Appearance Cloudy H (Clear) Urine Protein 1+ H (Negative) Urine Blood Small H (Negative) Ur Leukocyte Esterase Large H (Negative) Urine WBC 8 H (0-5) /hpf Hyaline Casts 5 H (0-2) /lpf Urine Mucus Rare H (None) /hpf Laboratory Results WBC 16.8 k/uL (3.8-10.6) H 10/21/20 09:04 RBC 4.27 m/uL (3.80-5.40) 10/21/20 09:04 Hgb 12.7 gm/dL (11.4-16.0) 10/21/20 09:04 Hct 40.9 % (34.0-46.0) 10/21/20 09:04 MCV 95.9 fL (80.0-100.0) 10/21/20 09:04 MCH 29.7 pg (25.0-35.0) 10/21/20 09:04 MCHC 31.0 g/dL (31.0-37.0) 10/21/20 09:04 RDW 13.8 % (11.5-15.5) 10/21/20 09:04 Plt Count 453 k/uL (150-450) H 10/21/20 09:04 MPV 7.7 10/21/20 09:04 Neutrophils % 84 % 10/21/20 09:04 Lymphocytes % 8 % 10/21/20 09:04 Monocytes % 5 % 10/21/20 09:04 Eosinophils % 1 % 10/21/20 09:04 Basophils % 0 % 10/21/20 09:04 Neutrophils # 14.2 k/uL (1.3-7.7) H 10/21/20 09:04 Lymphocytes # 1.4 k/uL (1.0-4.8) 10/21/20 09:04 Monocytes # 0.8 k/uL (0-1.0) 10/21/20 09:04 Eosinophils # 0.2 k/uL (0-0.7) 10/21/20 09:04 Basophils # 0.0 k/uL (0-0.2) 10/21/20 09:04 PT 10.1 sec (9.0-12.0) 10/21/20 09:04 INR 1.0 (<1.2) 10/21/20 09:04 APTT 25.6 sec (22.0-30.0) 10/21/20 09:04 Sodium 139 mmol/L (137-145) 10/21/20 09:04 Potassium 5.3 mmol/L (3.5-5.1) H 10/21/20 09:04 Chloride 107 mmol/L (98-107) 10/21/20 09:04 Carbon Dioxide 20 mmol/L (22-30) L 10/21/20 09:04 Anion Gap 12 mmol/L 10/21/20 09:04 BUN 32 mg/dL (7-17) H 10/21/20 09:04 Creatinine 1.13 mg/dL (0.52-1.04) H 10/21/20 09:04 Est GFR (CKD-EPI)AfAm 50 (>60 ml/min/1.73 sqM) 10/21/20 09:04 Est GFR (CKD-EPI)NonAf 43 (>60 ml/min/1.73 sqM) 10/21/20 09:04 Glucose 210 mg/dL (74-99) H 10/21/20 09:04 Calcium 9.7 mg/dL (8.4-10.2) 10/21/20 09:04 Magnesium 2.2 mg/dL (1.6-2.3) 10/21/20 09:04 Total Bilirubin 0.8 mg/dL (0.2-1.3) 10/21/20 09:04 AST 33 U/L (14-36) 10/21/20 09:04 ALT 17 U/L (4-34) 10/21/20 09:04 Alkaline Phosphatase 81 U/L (38-126) 10/21/20 09:04 Creatine Kinase 55 U/L (30-135) 10/21/20 09:04 Troponin I 0.233 ng/mL (0.000-0.034) H* 10/21/20 14:39 NT-Pro-B Natriuret Pep 6660 pg/mL 10/21/20 09:04 Total Protein 6.8 g/dL (6.3-8.2) 10/21/20 09:04 Albumin 3.6 g/dL (3.5-5.0) 10/21/20 09:04 Urine Color Yellow 10/21/20 10:20 Urine Appearance Cloudy (Clear) H 10/21/20 10:20 Urine pH 5.0 (5.0-8.0) 10/21/20 10:20 Ur Specific [place] 1.018 (1.001-1.035) 10/21/20 10:20 Urine Protein 1+ (Negative) H 10/21/20 10:20 Urine Glucose (UA) Negative (Negative) 10/21/20 10:20 Urine Ketones Negative (Negative) 10/21/20 10:20 Urine Blood Small (Negative) H 10/21/20 10:20 Urine Nitrite Negative (Negative) 10/21/20 10:20 Urine Bilirubin Negative (Negative) 10/21/20 10:20 Urine Urobilinogen <2.0 mg/dL (<2.0) 10/21/20 10:20 Ur Leukocyte Esterase Large (Negative) H 10/21/20 10:20 Urine RBC 5 /hpf (0-5) 10/21/20 10:20 Urine WBC 8 /hpf (0-5) H 10/21/20 10:20 Ur Squamous Epith Cells 3 /hpf (0-4) 10/21/20 10:20 Hyaline Casts 5 /lpf (0-2) H 10/21/20 10:20 Urine Mucus Rare /hpf (None) H 10/21/20 10:20 Thrombosis Risk Factor Assmnt - DVT/VTE Prophylaxis DVT/VTE Prophylaxis: Pharmacologic Prophylaxis ordered - Choose All That Apply Each Factor Represents 1 point: Acute IN Each Risk Factor Represents 3 Points: Age 75 years or older Thrombosis Risk Factor Assessment Total Risk Factor Score: 4 Thrombosis Risk Factor Assessment Level: Moderate Risk Assessment and Plan Plan: 1. Acute non-STEMI with elevation of troponins, known history of CAD with prior cath in 2018, known moderate aortic stenosis, patient's medically managed this time cardiology is following her, patient is on IV heparin, Lipitor 10, aspirin 325 mg, metoprolol 50 mg twice a day and lisinopril 10 mg twice a day, Nitropaste. 2. Presence of pacemaker, possibly related to either sick sinus syndrome, and is currently paced 3. Diastolic CHF exacerbation, on Lasix 40 mg daily 12 hours, EF is 50%, amlodipine 4. Diabetes mellitus type 2 on Tradjenta, sugars are between 167-210 5. Moderate aortic stenosis, to be monitored as an outpatient as well, patient is not physically active at this time, no evidence of syncope currently 6 Covid screen for chest pain, coronary 5 is not detected 7. Osteoporosis without current pathological fracture, has costal Chondritis 8. Pyuria without any evidence of urinary tract infection symptoms next 9Hyperlipidemia, on atorvastatin 10Cardiac arrhythmia, pacemaker vs AICD, on Tambocor 50 every 12 hours 11Hypertension with hypertensive cardiac vascular disease on Lipitor, metoprolol, amlodipine, lisinopril, DVT prophylaxis
[2020-10-21] MEDS ORDERED: FAMOTIDINE 20 MG TAB PO SCH (21:00)
[2020-10-21] MEDS ORDERED: HEPARIN SODIUM,PORCINE 5,000 UNIT/ML 1 ML VIAL IV STA (21:09)
[2020-10-21] MEDS: ATORVASTATIN 10 MG TAB PO SCH (21:37)
[2020-10-21] MEDS: lisinopriL 10 MG TAB PO SCH (21:37)
[2020-10-21] MEDS: METOPROLOL TARTRATE 50 MG TAB PO SCH (21:37)
[2020-10-21] MEDS: ACETAMINOPHEN TAB 500 MG TAB PO SCH (21:38)
[2020-10-21] MEDS: FLECAINIDE 50 MG TAB PO SCH (21:39)
[2020-10-21] MEDS: FUROSEMIDE 10 MG/ML 4 ML VIAL IV SCH (21:51)
[2020-10-22 04:36] LABS: Basophils % (A) 0 %; Eosinophils # (A) 0.2 k/uL (0-0.7); Eosinophils % (A) 2 %; HGB 10.8 gm/dL (11.4-16.0); Lymphocytes # (A) 1.7 k/uL (1.0-4.8); Lymphocytes % (A) 19 %; MCH 29.9 pg (25.0-35.0); MCHC 31.8 g/dL (31.0-37.0); Mean Platelet Volume 7.5; Monocytes # (A) 0.6 k/uL (0-1.0); Monocytes % (A) 6 %; Neutrophils # (A) 6.3 k/uL (1.3-7.7); Neutrophils % (A) 70 %; Platelet Count 436 k/uL (150-450); RBC 3.62 m/uL (3.80-5.40); RDW 13.7 % (11.5-15.5); WBC 8.9 k/uL (3.8-10.6)
[2020-10-22 05:57] LABS: Calcium 9.2 mg/dL (8.4-10.2)
[2020-10-22 06:30] LABS: Glucose,Whole Blood 153 mg/dL (75-99)
[2020-10-22] MEDS: INSULIN ASPART (NovoLOG) 100 UNIT/ML VIAL SQ SCH ×4 (06:36→21:41)
[2020-10-22] MEDS: NITROGLYCERIN OINT 1 INCH/GM PACKET TOPICAL SCH ×4 (06:39→23:01)
[2020-10-22] MEDS ORDERED: ASPIRIN 325 MG TAB PO SCH ×2 (09:00)
[2020-10-22] MEDS ORDERED: FUROSEMIDE 20 MG TAB PO SCH (09:00)
[2020-10-22] MEDS: amLODIPine 5 MG TAB PO SCH (09:37)
[2020-10-22] MEDS: FLECAINIDE 50 MG TAB PO SCH ×2 (09:37→21:40)
[2020-10-22] MEDS: FAMOTIDINE 20 MG TAB PO SCH (09:38)
[2020-10-22] MEDS: LINAGLIPTIN 5 MG TABLET PO SCH (09:38)
[2020-10-22] MEDS: allopurinoL 100 MG TAB PO SCH (09:38)
[2020-10-22] MEDS: ACETAMINOPHEN TAB 500 MG TAB PO SCH ×2 (09:38→21:40)
[2020-10-22] MEDS: METOPROLOL TARTRATE 50 MG TAB PO SCH ×2 (09:38→21:40)
[2020-10-22] MEDS: lisinopriL 10 MG TAB PO SCH ×2 (09:38→21:40)
[2020-10-22] MEDS: FUROSEMIDE 10 MG/ML 4 ML VIAL IV SCH ×2 (09:39→21:41)
[2020-10-22 11:57] LABS: Glucose,Whole Blood 202 mg/dL (75-99)
--- NOTE | 2020-10-22 11:59 | ECHOF ---
Referral Reason:Chest pain and cardiomyopathy MEASUREMENTS -------- HEIGHT: 129.5 cm WEIGHT: 57.2 kg BP: IVSd: 1.5 cm (0.6 - 1.1) LVIDd: 3.7 cm (3.9 - 5.3) LVPWd: 1.6 cm (0.6 - 1.1) EDV(Teich): 59 ml IVSs: 1.9 cm LVIDs: 2.6 cm LVPWs: 1.6 cm %IVS Thck: 26 % ESV(Teich): 25 ml EF(Teich): 57 % %FS: 29 % SV(Teich): 34 ml LVOT Diam: 0.9 cm IVC: 16.67 mm LVLd A4C: 6.7 cm LVEDV MOD A4C: 90 ml LVLs A4C: 6.6 cm LVESV MOD A4C: 48 ml LVEF MOD A4C: 47 % SV MOD A4C: 42 ml LALs A4C: 5.7 cm LAAs A4C: 19.3 cm LAESV A-L A4C: 55 ml LAESV MOD A4C: 53 ml LALs A2C: 6.2 cm LAAs A2C: 29.7 cm LAESV A-L A2C: 121 ml LAESV MOD A2C: 115 ml LAESV(A-L): 85 ml LAESV Index (A-L): 62.26 ml/m Ao Diam: 2.4 cm (2.0 - 3.7) LA Diam: 3.9 cm (2.7 - 3.8) AV Cusp: 1.0 cm (1.5 - 2.6) EPSS: 1.6 cm MV E Rodney: 1.69 m/s MV DecT: 329 ms MV Dec [place]: 5.1 m/s MV A Rodney: 1.75 m/s MV E/A Ratio: 0.97 MV PHT: 95 ms MV PHT: 97 ms MVA By PHT: 2.3 cm MV Vmax: 2.01 m/s MV Vmean: 1.28 m/s MV maxP.09 mmHg MV meanP.44 mmHg MV VTI: 64.3 cm MVA (VTI): 0.2 cm MR Vmax: 5.22 m/s MR maxP.80 mmHg LVOT Vmax: 0.91 m/s LVOT maxP.31 mmHg LVOT Vmax: 0.96 m/s LVOT Vmean: 0.74 m/s LVOT maxP.66 mmHg LVOT meanP.34 mmHg LVOT Env.Ti: 295 ms LVOT VTI: 21.8 cm AV Vmax: 3.93 m/s AV maxP.68 mmHg GUERITA Vmax, Pt: 0.2 cm GUERITA Vmax: 0.2 cm AV Vmax: 4.07 m/s AV Vmean: 3.22 m/s AV maxP.20 mmHg AV meanP.33 mmHg AV Env.Ti: 286 ms AV VTI: 92.0 cm GUERITA Vmax: 0.2 cm GUERITA (VTI): 0.2 cm GUERITA Vmax, Pt: 0.2 cm AR Vmax: 3.54 m/s AR maxP.00 mmHg AR PHT: 619 ms AR Dec Time: 2133 ms AR Dec [place]: 1.7 m/s TR Vmax: 2.96 m/s TR maxP.09 mmHg RAP: 5.00 mmHg RVSP: 40.09 mmHg MV EF SLOPE: 24.40 mm/s (70 - 150) MV EXCURSION: 8.33 mm (> 18.000) FINDINGS -------- Paced rhythm. This was a technically good study. The left ventricular size is normal. There is moderate concentric left ventricular hypertrophy. O verall left ventricular systolic function is low-normal with, an EF between 50 - 55 %. Increased LA P Grade 2 Diastolic Dysfunction. The right ventricle is normal in size. LA is severely dilated >40 ml/m2 The right atrial size is normal. Aortic valve is trileaflet and is severely thickened. There is xgam-zn-byrudnvq aortic regurgitatio n. There is ghrumipb-er-hiujpu aortic stenosis present. Peak/mean gradient across the Aortic Valv e is 66.20mmHg / 43.33mmHg. The mitral valve is normal. The mitral valve leaflets are moderately thickened. Moderate mitral a nnular calcification present. Mild mitral regurgitation is present. Ibzu-ss-ibkhwhti mitral steno sis. Puxj-ru-eivlbikn tricuspid regurgitation present. There is mild pulmonary hypertension. The right ventricular systolic pressure, as measured by Doppler, is 40.09mmHg. There is no pulmonic regurgitation present. The aortic root size is normal. Normal inferior vena cava with normal inspiratory collapse consistent with estimated right atrial pre ssure of 5 mmHg. There is a trivial pericardial effusion present. CONCLUSIONS -------- 1. Paced rhythm. 2. The left ventricular size is normal. 3. There is moderate concentric left ventricular hypertrophy. 4. Overall left ventricular systolic function is low-normal with, an EF between 50 - 55 %. 5. Increased LAP Grade 2 Diastolic Dysfunction. 6. LA is severely dilated >40 ml/m2 7. Aortic valve is trileaflet and is severely thickened. 8. There is jurq-ng-egdgnzmq aortic regurgitation. 9. There is qcwntaoy-pj-ktvrgb aortic stenosis present. 10. Peak/mean gradient across the Aortic Valve is 66.20mmHg / 43.33mmHg. 11. The mitral valve leaflets are moderately thickened. 12. Moderate mitral annular calcification present. 13. Mild mitral regurgitation is present. 14. Ktpk-fb-wbpedygz mitral stenosis. 15. Msva-or-crgtzsbt tricuspid regurgitation present. 16. There is mild pulmonary hypertension. 17. The right ventricular systolic pressure, as measured by Doppler, is 40.09mmHg. 18. There is a trivial pericardial effusion present. [employer]: Rabia Srivastava RDCS
--- NOTE | 2020-10-22 14:31 | P.PN ---
Subjective Progress Note Date: 10/22/20 CHIEF COMPLAINT: Chest pain HISTORY OF PRESENT ILLNESS: Patient examined this morning the bedside. Patient denies shortness of breath. She reports left sided chest pain and shoulder pain. She states the pain is worse with movement. Pain is reproducible upon palpation. She remains on IV heparin. PHYSICAL EXAM: VITAL SIGNS: Reviewed. GENERAL: Well-developed in no acute distress. HEENT: Head is normocephalic. Pupils are equal, round. Sclerae anicteric. Mucous membranes of the mouth are moist. Neck supple. No JVD or thyromegaly LUNGS: Respirations even and unlabored. Lungs diminished. Permanent pacemaker to left anterior chest. HEART: Regular rate and rhythm. S1 and S2 heard. Systolic murmur noted. EXTREMITIES: Normal range of motion. No clubbing or cyanosis. Peripheral pulses intact. No lower extremity edema NEUROLOGIC: Awake and alert. Oriented x 2-3. ASSESSMENT: Non-ST elevated myocardial infarction Possible acute exacerbation of chronic diastolic heart failure, EF 50% History of permanent pacemaker insertion Valvular heart disease: moderate aortic regurgitation, moderate aortic stenosis, mild mitral regurgitation and mild tricuspid regurgitation. Hypertension Hyperlipidemia Diabetes mellitus, type II PLAN: Continue current cardiac medications Continue IV Lasix. Anticipate transitioning to oral dosing tomorrow Monitor kidney function Accurate I&O Continue IV heparin drip 2-D echo ordered. Await results Request has been sent to obtain records from patient's control systems developer out of [place]. Further recommendations regarding cardiac cath versus medical managment will be made after reviewing echocardiogram and reviewing records from patient's control systems developer once they are obtained. Nurse practitioner note has been reviewed by physician. Signing provider agrees with the documented findings, assessment, and plan of care. Objective - Vital Signs Vital signs: Vital Signs Temp 98.1 F 10/22/20 03:36 Pulse 54 L 10/22/20 03:36 Resp 18 10/22/20 03:36 BP 127/56 10/22/20 03:36 Pulse Ox 96 10/22/20 03:36 Intake & Output 10/21/20 10/22/20 10/22/20 18:59 06:59 18:59 Intake Total 378.766 418.34 Output Total 800 750 Balance -421.234 -331.66 Weight 58.967 kg 57.5 kg Intake: Intake, IV Titration 138.766 58.34 Amount Heparin Sod,Pork in 0.45% 138.766 58.34 NaCl 25,000 unit In 0.45 % NaCl 1 250ml.bag @ 12 UNITS/KG/HR 7.076 mls/hr IV .Q24H [facility] Rx#: [id number] Oral 240 360 Output: Urine 800 750 Other: # Voids 1 2 - Labs CBC & Chem 7: 10/22/20 03:55 10/22/20 03:55 Labs: Abnormal Lab Results - Last 24 Hours (Table) 10/21/20 10/21/20 10/22/20 Range/Units 14:39 17:10 03:55 RBC 3.62 L (3.80-5.40) m/uL Hgb 10.8 L (11.4-16.0) gm/dL APTT 39.1 H (22.0-30.0) sec BUN (7-17) mg/dL Creatinine (0.52-1.04) mg/dL Glucose (74-99) mg/dL POC Glucose (mg/dL) (75-99) mg/dL Troponin I 0.233 H* (0.000-0.034) ng/mL Triglycerides (<150) mg/dL HDL Cholesterol (40-60) mg/dL 10/22/20 10/22/20 10/22/20 Range/Units 03:55 03:55 06:24 RBC (3.80-5.40) m/uL Hgb (11.4-16.0) gm/dL APTT 37.5 H (22.0-30.0) sec BUN 32 H (7-17) mg/dL Creatinine 1.13 H (0.52-1.04) mg/dL Glucose 157 H (74-99) mg/dL POC Glucose (mg/dL) 153 H (75-99) mg/dL Troponin I (0.000-0.034) ng/mL Triglycerides 167 H (<150) mg/dL HDL Cholesterol 27 L (40-60) mg/dL 10/22/20 10/22/20 Range/Units 11:14 11:56 RBC (3.80-5.40) m/uL Hgb (11.4-16.0) gm/dL APTT 43.2 H (22.0-30.0) sec BUN (7-17) mg/dL Creatinine (0.52-1.04) mg/dL Glucose (74-99) mg/dL POC Glucose (mg/dL) 202 H (75-99) mg/dL Troponin I (0.000-0.034) ng/mL Triglycerides (<150) mg/dL HDL Cholesterol (40-60) mg/dL
[2020-10-22 16:57] LABS: Glucose,Whole Blood 116 mg/dL (75-99)
[2020-10-22] MEDS: HEPARIN SOD,PORK IN 0.45% NACL 25,000 UNIT in 0.45% NACL 1 250ML.BAG IV SCH (16:59)
[2020-10-22] MEDS: SODIUM CHLORIDE 0.9% 1,000 ML IV SCH (17:00)
--- NOTE | 2020-10-22 18:07 | P.PN ---
Subjective Progress Note Date: 10/22/20 Principal diagnosis: non-STEMI This is a pleasant 89-year-old patient of Dr. Walker with known history of CAD hypertension pacemaker device, diabetes mellitus type 2, systolic dysfunction, moderate aortic stenosis and moderate aortic regurgitation, hypertension admitted to the emergency room secondary to an episode of chest pain that woke her up from her sleep. These lasted until her ER evaluation around 9:00 the morning for which she was subsequently seen in the emergency room. She follows with a wellness spa manager [facility] Dr. Mark for which his her last visit wa s over a year ago. Her last cardiac cath was in 2018, did not require any stents at that time. She has also prior history of cholecystectomy, chronic back pain, costochondritis. Patient denies any aspiration, no cough no fever, patient denies any recent trauma, and no pleurisy. Patient was seen with the daughter at bedside, who provides most of the foot patient. Patient has chest pressure left-sided she is not sure whether this is related to her pacemaker use or her heart she says, there is no radiation to the jaw or neck. No lightheadedness no syncope, patient denies any edema, or calf pain. She denies any aspiration no GI bleed, no melena When seen in the emergency room troponin garcia elevated 0.301, BNP of 6660, creatinine 1.13, hemoglobin 12.7, but fashion 5.3, WBC count of 16.8, chest x- ray shows increasing small left pleural effusion, stable minimal right pleural effusion, EKG shows paced rhythm, agents admitted for an STEMI, cardiology is consulted, transferred to the medical floor, with no current intervention except for medical management. Old report showed echocardiogram in May 2020, EF 45-50%, moderate AR, moderate left ear, mild MR and mild TR 10/22: Patient remains to be chest pain-free, has minimal shortness of breath, he she states this has some improvement patient remains to be on IV heparin, troponins are trending downward, IV Lasix, for which plan is for oral dosing of Lasix in the morning. 2-D echo is currently pending, cardiology is following sascha oscarly but sugars are between 116-153, LDL of 36 creatinine of 1.13 at pressure 113 this systolic, with heart rate between 60-72. No hypoxemia, nor orthostasis nor aspiration events Review of Systems Constitutional: Reports as per HPI, Denies anorexia, Denies chills, Denies chronic headaches, Denies chronic pain, Denies daytime sleepiness, Denies fatigue, Denies fever, Denies lethargy, Denies malaise, Denies night sweats, Denies poor appetite, Denies sweats, Denies weakness, Denies weight gain, Denies weight loss Ears, nose, mouth and throat: Reports as per HPI Cardiovascular: Reports as per HPI, Reports chest pain, Reports decreased exercise tolerance, Denies claudication, Denies dyspnea on exertion, Denies edema, Denies high blood pressure, Denies irregular heart beat, Denies leg edema, Denies lightheadedness, Denies orthopnea, Denies palpitations, Denies paroxysmal nocturnal dyspnea, Denies phlebitis, Denies rapid heart beat, Denies shortness of breath, Denies syncope Respiratory: Reports as per HPI, Denies congestion, Denies cough, Denies cough with sputum, Denies dyspnea, Denies excessive sputum, Denies hemoptysis, Denies home oxygen, Denies pain on inspiration, Denies pleurisy, Denies respiratory infections, Denies sleep apnea, Denies snoring, Denies wheezing Gastrointestinal: Reports as per HPI, Denies abdominal pain, Denies belching, Denies bloating, Denies BRBPR, Denies change in bowel habits, Denies coffee ground emesis, Denies constipation, Denies diarrhea, Denies dyspepsia, Denies early satiety, Denies excessive gas, Denies heartburn, Denies hematemesis, Denies hematochezia, Denies indigestion, Denies jaundice, Denies lactose intolerance, Denies loss of appetite, Denies melena, Denies nausea, Denies vomiting Genitourinary: Reports as per HPI Menstruation: Reports as per HPI Musculoskeletal: Reports as per HPI Integumentary: Reports as per HPI, Denies acne, Denies boils, Denies brittle nails, Denies change in hair/nails, Denies color changes, Denies darkening of skin, Denies depigmentation, Denies dryness, Denies foot/leg ulcers, Denies growths, Denies hirsutism, Denies lesions, Denies onychomycosis, Denies p ruritus, Denies rash, Denies sores, Denies striae, Denies unusual bruising, Denies wounds Neurological: Reports as per HPI, Denies aphasia, Denies ataxia, Denies balance difficulties, Denies burning pain, Denies change in mentation, Denies change in smell/taste, Denies change in speech, Denies confusion, Denies convulsions, Denies double vision, Denies gait dysfunction, Denies head injury, Denies headaches, Denies hearing difficulties, Denies lack of coordination, Denies loss of vision, Denies memory loss, Denies migraines, Denies motor disturbance, Denies numbness, Denies paralysis, Denies paresthesias, Denies seizures, Denies sensory deficit, Denies spasticity, Denies syncope, Denies tic, Denies tingling, Denies transient paralysis, Denies tremors, Denies vertigo, Denies weakness, Denies visual changes Psychiatric: Reports as per HPI, Reports confusion, Reports difficulty concentrating, Reports sleep disturbances Endocrine: Reports as per HPI, Denies cold intolerance, Denies deepening of the voice, Denies excessive sweating, Denies excessive thirst, Denies fatigue, Denies flushing, Denies heat intolerance, Denies high blood sugars, Denies increase in ring/shoe/hat size, Denies low blood sugars, Denies nocturia, Denies palpitations, Denies polydipsia, Denies polyphagia, Denies polyuria, Denies proptosis, Denies recent glucocorticoid use, Denies thyroid mass, Denies weight change Hematologic/Lymphatic: Reports as per HPI, Denies easy bleeding, Denies easy bruising, Denies lymphadenopathy, Denies lymphedema, Denies thrombophilia Allergic/Immunologic: Reports as per HPI, Denies allergic rhinitis, Denies anaphylaxis, Denies angioedema, D Objective - Vital Signs Vital signs: Vital Signs Temp 98.2 F 10/22/20 16:00 Pulse 62 10/22/20 16:00 Resp 18 10/22/20 16:00 BP 136/69 10/22/20 16:00 Pulse Ox 97 10/22/20 16:00 Intake & Output 10/21/20 10/22/20 10/22/20 18:59 06:59 18:59 Intake Total 378.766 470.075 Output Total 800 1050 Balance -421.234 -579.925 Weight 58.967 kg 57.5 kg Intake: Intake, IV Titration 138.766 110.075 Amount Heparin Sod,Pork in 0.45% 138.766 110.075 NaCl 25,000 unit In 0.45 % NaCl 1 250ml.bag @ 12 UNITS/KG/HR 7.076 mls/hr IV .Q24H [facility] Rx#: [id number] Oral 240 360 Output: Urine 800 1050 Other: # Voids 1 2 - Constitutional General appearance: Present: cooperative, no acute distress - EENT Eyes: Present: anicteric sclerae, PERRLA, dentition normal ENT: Present: NA/AT - Neck Neck: Present: normal ROM - Respiratory Respiratory: bilateral: CTA, negative: diminished, dullness - Cardiovascular Rhythm: regular Abnormal Heart Sounds: Present: systolic murmur - Gastrointestinal General gastrointestinal: Present: normal bowel sounds, soft - Integumentary Integumentary: Present: decreased turgor, normal - Labs CBC & Chem 7: 10/22/20 03:55 10/22/20 03:55 Labs: Abnormal Lab Results - Last 24 Hours (Table) 10/22/20 10/22/20 10/22/20 Range/Units 03:55 03:55 03:55 RBC 3.62 L (3.80-5.40) m/uL Hgb 10.8 L (11.4-16.0) gm/dL APTT 37.5 H (22.0-30.0) sec BUN 32 H (7-17) mg/dL Creatinine 1.13 H (0.52-1.04) mg/dL Glucose 157 H (74-99) mg/dL POC Glucose (mg/dL) (75-99) mg/dL Triglycerides 167 H (<150) mg/dL HDL Cholesterol 27 L (40-60) mg/dL 10/22/20 10/22/20 10/22/20 Range/Units 06:24 11:14 11:56 RBC (3.80-5.40) m/uL Hgb (11.4-16.0) gm/dL APTT 43.2 H (22.0-30.0) sec BUN (7-17) mg/dL Creatinine (0.52-1.04) mg/dL Glucose (74-99) mg/dL POC Glucose (mg/dL) 153 H 202 H (75-99) mg/dL Triglycerides (<150) mg/dL HDL Cholesterol (40-60) mg/dL 10/22/20 Range/Units 16:55 RBC (3.80-5.40) m/uL Hgb (11.4-16.0) gm/dL APTT (22.0-30.0) sec BUN (7-17) mg/dL Creatinine (0.52-1.04) mg/dL Glucose (74-99) mg/dL POC Glucose (mg/dL) 116 H (75-99) mg/dL Triglycerides (<150) mg/dL HDL Cholesterol (40-60) mg/dL Assessment and Plan Plan: 1. Acute non-STEMI with elevation of troponins, known history of CAD with prior cath in 2018, known moderate aortic stenosis, patient's medically managed this time cardiology is following her, patient is on IV heparin, Lipitor 10, aspirin 325 mg, metoprolol 50 mg twice a day and lisinopril 10 mg twice a day, Nitropaste. No d-dimer available for review, if elevated they would proceed with CTA chest, 2. Presence of pacemaker, possibly related to either sick sinus syndrome, and is currently paced 3. Diastolic CHF exacerbation, on Lasix 40 mg daily 12 hours, EF is 50%, amlodipine 4. Diabetes mellitus type 2 on Tradjenta, sugars are between 167-210 5. Moderate aortic stenosis, to be monitored as an outpatient as well, patient is not physically active at this time, no evidence of syncope currently 6 Covid screen for chest pain, is not detected 7. Osteoporosis without current pathological fracture, has costoChondritis 8. Pyuria without any evidence of urinary tract infection symptoms next 9Hyperlipidemia, on atorvastatin 10Cardiac arrhythmia, pacemaker vs AICD, on Tambocor 50 every 12 hours 11Hypertension with hypertensive cardiac vascular disease on Lipitor, metoprolol, amlodipine, lisinopril, DVT prophylaxis
[2020-10-22 20:01] LABS: Glucose,Whole Blood 244 mg/dL (75-99)
--- NOTE | 2020-10-22 21:28 | CT ---
EXAMINATION TYPE: CT chest angio for PE DATE OF EXAM: 10/22/2020 COMPARISON: None HISTORY: Elevated d-dimer CT DLP: 313.8 mGycm Automated exposure control for dose reduction was used. CONTRAST: Performed with IV Contrast, patient injected with 80 mL of Isovue 370. Images obtained from the level of the thoracic inlet to the diaphragm with IV contrast and 3-D post p rocessed images. There are bilateral pleural effusions and larger on the left side. There is bilateral basilar pulmona ry infiltrate and atelectasis. Heart is enlarged. There are no hilar masses. There is a few anterior mediastinal lymph nodes that measure up to 1.5 cm. There is some reticular nodular infiltrate at the right lung apex. There is normal contrast opacification of the pulmonary arteries. There are no filling defects. There is no evidence of thoracic aortic aneurysm or dissection. The ascending aorta measures 3.2 cm. The bony thorax is intact. Sternum is intact. There is left axillary pacemaker. IMPRESSION: No evidence of pulmonary embolism. Cardiomegaly with pleural effusions and basilar atelectasis could relate to some chronic congestive h eart failure.
[2020-10-22] MEDS: ATORVASTATIN 10 MG TAB PO SCH (21:40)
[2020-10-23 06:12] LABS: Glucose,Whole Blood 154 mg/dL (75-99)
[2020-10-23] MEDS: INSULIN ASPART (NovoLOG) 100 UNIT/ML VIAL SQ SCH ×4 (06:20→20:19)
[2020-10-23] MEDS: NITROGLYCERIN OINT 1 INCH/GM PACKET TOPICAL SCH ×4 (06:23→23:41)
[2020-10-23] MEDS ORDERED: FERROUS SULFATE 325 MG TAB PO SCH (07:30)
[2020-10-23 07:54] LABS: Basophils # (A) 0.1 k/uL (0-0.2); Basophils % (A) 1 %; Eosinophils # (A) 0.3 k/uL (0-0.7); Eosinophils % (A) 3 %; HCT 37.3 % (34.0-46.0); HGB 12.2 gm/dL (11.4-16.0); Lymphocytes # (A) 2.1 k/uL (1.0-4.8); Lymphocytes % (A) 23 %; MCH 30.4 pg (25.0-35.0); MCHC 32.7 g/dL (31.0-37.0); MCV 92.9 fL (80.0-100.0); Mean Platelet Volume 7.3; Monocytes # (A) 0.5 k/uL (0-1.0); Monocytes % (A) 5 %; Neutrophils # (A) 6.1 k/uL (1.3-7.7); Neutrophils % (A) 65 %; Platelet Count 532 k/uL (150-450); RBC 4.01 m/uL (3.80-5.40); RDW 13.3 % (11.5-15.5); WBC 9.3 k/uL (3.8-10.6)
[2020-10-23] MEDS: lisinopriL 10 MG TAB PO SCH ×2 (09:25→20:19)
[2020-10-23] MEDS: FUROSEMIDE 10 MG/ML 4 ML VIAL IV SCH (09:25)
[2020-10-23] MEDS: amLODIPine 5 MG TAB PO SCH (09:25)
[2020-10-23] MEDS: FAMOTIDINE 20 MG TAB PO SCH (09:25)
[2020-10-23] MEDS: FLECAINIDE 50 MG TAB PO SCH ×2 (09:25→20:19)
[2020-10-23] MEDS: ACETAMINOPHEN TAB 500 MG TAB PO SCH ×2 (09:25→20:18)
[2020-10-23] MEDS: LINAGLIPTIN 5 MG TABLET PO SCH (09:25)
[2020-10-23] MEDS: allopurinoL 100 MG TAB PO SCH (09:25)
[2020-10-23] MEDS: ASPIRIN 81 MG PO SCH (09:25)
[2020-10-23] MEDS: METOPROLOL TARTRATE 50 MG TAB PO SCH ×2 (09:25→20:19)
--- NOTE | 2020-10-23 11:05 | P.PN ---
Subjective Progress Note Date: 10/23/20 Principal diagnosis: non-STEMI This is a pleasant 89-year-old patient of Dr. Walker with known history of CAD hypertension pacemaker device, diabetes mellitus type 2, systolic dysfunction, moderate aortic stenosis and moderate aortic regurgitation, hypertension admitted to the emergency room secondary to an episode of chest pain that woke her up from her sleep. These lasted until her ER evaluation around 9:00 the morning for which she was subsequently seen in the emergency room. She follows with a sales service executive [facility] Dr. Mark for which his her last visit wa s over a year ago. Her last cardiac cath was in 2018, did not require any stents at that time. She has also prior history of cholecystectomy, chronic back pain, costochondritis. Patient denies any aspiration, no cough no fever, patient denies any recent trauma, and no pleurisy. Patient was seen with the daughter at bedside, who provides most of the foot patient. Patient has chest pressure left-sided she is not sure whether this is related to her pacemaker use or her heart she says, there is no radiation to the jaw or neck. No lightheadedness no syncope, patient denies any edema, or calf pain. She denies any aspiration no GI bleed, no melena When seen in the emergency room troponin garcia elevated 0.301, BNP of 6660, creatinine 1.13, hemoglobin 12.7, but fashion 5.3, WBC count of 16.8, chest x- ray shows increasing small left pleural effusion, stable minimal right pleural effusion, EKG shows paced rhythm, agents admitted for an STEMI, cardiology is consulted, transferred to the medical floor, with no current intervention except for medical management. Old report showed echocardiogram in May 2020, EF 45-50%, moderate AR, moderate left ear, mild MR and mild TR 10/22: Patient remains to be chest pain-free, has minimal shortness of breath, he she states this has some improvement patient remains to be on IV heparin, troponins are trending downward, IV Lasix, for which plan is for oral dosing of Lasix in the morning. 2-D echo is currently pending, cardiology is following sascha oscarly but sugars are between 116-153, LDL of 36 creatinine of 1.13 at pressure 113 this systolic, with heart rate between 60-72. No hypoxemia, nor orthostasis nor aspiration events October 23: Patient is chest pain-free when resting, however patient complains of chest pain when she exerts and walks around, patient has no cough no fever, denies any PND. CHF changes on chest x-ray, awaiting cardiology for further cardiac testing, computed tomography scan of the chest failed to reveal any PE, d-dimer is elevated Review of Systems Constitutional: Reports as per HPI, Denies anorexia, Denies chills, Denies chronic headaches, Denies chronic pain, Denies daytime sleepiness, Denies fatigue, Denies fever, Denies lethargy, Denies malaise, Denies night sweats, Denies poor appetite, Denies sweats, Denies weakness, Denies weight gain, Denies weight loss Ears, nose, mouth and throat: Reports as per HPI Cardiovascular: Reports as per HPI, Reports chest pain, Reports decreased exercise tolerance, Denies claudication, Denies dyspnea on exertion, Denies edema, Denies high blood pressure, Denies irregular heart beat, Denies leg edema, Denies lightheadedness, Denies orthopnea, Denies palpitations, Denies paroxysmal nocturnal dyspnea, Denies phlebitis, Denies rapid heart beat, Denies shortness of breath, Denies syncope Respiratory: Reports as per HPI, Denies congestion, Denies cough, Denies cough with sputum, Denies dyspnea, Denies excessive sputum, Denies hemoptysis, Denies home oxygen, Denies pain on inspiration, Denies pleurisy, Denies respiratory infections, Denies sleep apnea, Denies snoring, Denies wheezing Gastrointestinal: Reports as per HPI, Denies abdominal pain, Denies belching, Denies bloating, Denies BRBPR, Denies change in bowel habits, Denies coffee ground emesis, Denies constipation, Denies diarrhea, Denies dyspepsia, Denies ea rly satiety, Denies excessive gas, Denies heartburn, Denies hematemesis, Denies hematochezia, Denies indigestion, Denies jaundice, Denies lactose intolerance, Denies loss of appetite, Denies melena, Denies nausea, Denies vomiting Genitourinary: Reports as per HPI Menstruation: Reports as per HPI Musculoskeletal: Reports as per HPI Integumentary: Reports as per HPI, Denies acne, Denies boils, Denies brittle nails, Denies change in hair/nails, Denies color changes, Denies darkening of skin, Denies depigmentation, Denies dryness, Denies foot/leg ulcers, Denies growths, Denies hirsutism, Denies lesions, Denies onychomycosis, Denies pruritus, Denies rash, Denies sores, Denies striae, Denies unusual bruising, Denies wounds Neurological: Reports as per HPI, Denies aphasia, Denies ataxia, Denies balance difficulties, Denies burning pain, Denies change in mentation, Denies change in smell/taste, Denies change in speech, Denies confusion, Denies convulsions, Denies double vision, Denies gait dysfunction, Denies head injury, Denies headaches, Denies hearing difficulties, Denies lack of coordination, Denies loss of vision, Denies memory loss, Denies migraines, Denies motor disturbance, Denies numbness, Denies paralysis, Denies paresthesias, Denies seizures, Denies sensory deficit, Denies spasticity, Denies syncope, Denies tic, Denies tingling, Denies transient paralysis, Denies tremors, Denies vertigo, Denies weakness, Denies visual changes Psychiatric: Reports as per HPI, Reports confusion, Reports difficulty concentrating, Reports sleep disturbances Endocrine: Reports as per HPI, Denies cold intolerance, Denies deepening of the voice, Denies excessive sweating, Denies excessive thirst, Denies fatigue, [place] es flushing, Denies heat intolerance, Denies high blood sugars, Denies increase in ring/shoe/hat size, Denies low blood sugars, Denies nocturia, Denies palpitations, Denies polydipsia, Denies polyphagia, Denies polyuria, Denies proptosis, Denies recent glucocorticoid use, Denies thyroid mass, Denies weight change Hematologic/Lymphatic: Reports as per HPI, Denies easy bleeding, Denies easy bruising, Denies lymphadenopathy, Denies lymphedema, Denies thrombophilia Allergic/Immunologic: Reports as per HPI, Denies allergic rhinitis, Denies anaphylaxis, Denies angioedema, D Objective - Vital Signs Vital signs: Vital Signs Temp 98.1 F 10/23/20 04:00 Pulse 50 L 10/23/20 04:00 Resp 16 10/23/20 04:00 BP 118/66 10/23/20 04:00 Pulse Ox 97 10/23/20 04:00 Intake & Output 10/22/20 10/23/20 10/23/20 18:59 06:59 18:59 Intake Total 710.075 240 384.827 Output Total 1050 950 800 Balance -339.925 -710 -415.173 Weight 57.8 kg Intake: Intake, IV Titration 110.075 144.827 Amount Heparin Sod,Pork in 0.45% 110.075 144.827 NaCl 25,000 unit In 0.45 % NaCl 1 250ml.bag @ 12 UNITS/KG/HR 7.076 mls/hr IV .Q24H [facility] Rx#: [id number] Oral 600 240 240 Output: Urine 1050 950 800 Other: # Voids 2 1 # Bowel Movements 1 - Constitutional General appearance: Present: cooperative, no acute distress - EENT Eyes: Present: anicteric sclerae, EOMI, PERRLA, dentition normal, normal appearance ENT: Present: hard of hearing, NA/AT, normal oropharynx - Neck Neck: Present: normal ROM - Respiratory Respiratory: bilateral: CTA, negative: diminished, dullness, rales - Cardiovascular Rhythm: regular Heart sounds: normal: S1, S2 - Gastrointestinal General gastrointestinal: Present: normal bowel sounds, soft - Integumentary Integumentary: Present: normal, normal turgor - Musculoskeletal Musculoskeletal: Present: gait normal, strength equal bilaterally - Psychiatric Psychiatric: Present: A&O x's 3, appropriate affect, intact judgment & insight - Labs CBC & Chem 7: 10/23/20 07:30 10/22/20 03:55 Labs: Abnormal Lab Results - Last 24 Hours (Table) 10/22/20 10/22/20 10/22/20 Range/Units 11:14 11:56 16:55 Plt Count (150-450) k/uL APTT 43.2 H (22.0-30.0) sec D-Dimer (<0.60) mg/L FEU POC Glucose (mg/dL) 202 H 116 H (75-99) mg/dL 10/22/20 10/22/20 10/23/20 Range/Units 18:43 19:59 06:10 Plt Count (150-450) k/uL APTT (22.0-30.0) sec D-Dimer 6.83 H (<0.60) mg/L FEU POC Glucose (mg/dL) 244 H 154 H (75-99) mg/dL 10/23/20 10/23/20 Range/Units 07:30 07:30 Plt Count 532 H (150-450) k/uL APTT 48.5 H (22.0-30.0) sec D-Dimer (<0.60) mg/L FEU POC Glucose (mg/dL) (75-99) mg/dL Assessment and Plan Plan: 1. Acute non-STEMI with elevation of troponins, known history of CAD with prior cath in 2018, known moderate aortic stenosis, patient's medically managed this time cardiology is following her, patient is on IV heparin, Lipitor 10, aspirin 325 mg, metoprolol 50 mg twice a day and lisinopril 10 mg twice a day, Nitropaste. No d-dimer available for review, if elevated they would proceed with CTA chest, which was negative for PE, the d-dimer was elevated 2. Presence of pacemaker, possibly related to either sick sinus syndrome, and is currently paced 3. Diastolic CHF exacerbation, on Lasix 40 mg daily 12 hours, EF is 50%, amlodipine 4. Diabetes mellitus type 2 on Tradjenta, sugars are between 167-210 5. Moderate aortic stenosis, to be monitored as an outpatient as well, patient is not physically active at this time, no evidence of syncope currently 6 Covid screen for chest pain, is not detected 7. Osteoporosis without current pathological fracture, has costoChondritis 8. Pyuria without any evidence of urinary tract infection symptoms next 9Hyperlipidemia, on atorvastatin 10Cardiac arrhythmia, pacemaker vs AICD, on Tambocor 50 every 12 hours 11Hypertension with hypertensive cardiac vascular disease on Lipitor, metoprol ol, amlodipine, lisinopril, DVT prophylaxis
[2020-10-23 12:29] LABS: Glucose,Whole Blood 145 mg/dL (75-99)
[2020-10-23 13:34] LABS: Hemoglobin A1C 7.9 % (4.0-6.0)
--- NOTE | 2020-10-23 15:10 | P.PN ---
Subjective Progress Note Date: 10/23/20 CHIEF COMPLAINT: Chest pain HISTORY OF PRESENT ILLNESS: Patient examined this morning the bedside. Patient denies shortness of breath. She continues to report reproducible chest pain. She remains on IV heparin. Records from [facility] reviewed from 2018. Patient had an echocardiogram at that time revealing EF 50%. Patient also underwent a stress test which revealed no evidence of reversible ischemia. There was a fixed apical defect that was thought to be artifact. PHYSICAL EXAM: VITAL SIGNS: Reviewed. GENERAL: Well-developed in no acute distress. HEENT: Head is normocephalic. Pupils are equal, round. Sclerae anicteric. Mucous membranes of the mouth are moist. Neck supple. No JVD or thyromegaly LUNGS: Respirations even and unlabored. Lungs diminished. HEART: Regular rate and rhythm. S1 and S2 heard. Systolic murmur noted. EXTREMITIES: Normal range of motion. No clubbing or cyanosis. Peripheral pulses intact. No lower extremity edema NEUROLOGIC: Awake and alert. Oriented x 2-3. ASSESSMENT: Non-ST elevated myocardial infarction Possible acute exacerbation of chronic diastolic heart failure, EF 50% History of permanent pacemaker insertion Valvular heart disease: moderate aortic regurgitation, moderate aortic stenosis, mild mitral regurgitation and mild tricuspid regurgitation. Hypertension Hyperlipidemia Diabetes mellitus, type II PLAN: Continue current cardiac medications Discontinue IV Lasix. Begin oral Lasix 40 mg daily Discontinue IV heparin Dr. Granda to speak with patients daughter today via phone. Further recommendations to follow. Nurse practitioner note has been reviewed by physician. Signing provider agrees with the documented findings, assessment, and plan of care. Objective - Vital Signs Vital signs: Vital Signs Temp 97.7 F 10/23/20 12:00 Pulse 60 10/23/20 14:00 Resp 18 10/23/20 14:00 BP 128/64 10/23/20 12:00 Pulse Ox 96 10/23/20 12:00 Intake & Output 10/22/20 10/23/20 10/23/20 18:59 06:59 18:59 Intake Total 710.075 240 624.827 Output Total 6963 046 7622 Balance -339.925 -710 -875.173 Weight 57.8 kg Intake: Intake, IV Titration 110.075 144.827 Amount Heparin Sod,Pork in 0.45% 110.075 144.827 NaCl 25,000 unit In 0.45 % NaCl 1 250ml.bag @ 12 UNITS/KG/HR 7.076 mls/hr IV .Q24H [facility] Rx#: [id number] Oral 600 240 480 Output: Urine 7620 029 8172 Other: Voiding Method Toilet # Voids 2 1 # Bowel Movements 1 - Labs CBC & Chem 7: 10/23/20 07:30 10/22/20 03:55 Labs: Abnormal Lab Results - Last 24 Hours (Table) 10/22/20 10/22/20 10/22/20 Range/Units 16:55 18:43 19:59 Plt Count (150-450) k/uL APTT (22.0-30.0) sec D-Dimer 6.83 H (<0.60) mg/L FEU POC Glucose (mg/dL) 116 H 244 H (75-99) mg/dL Hemoglobin A1c (4.0-6.0) % 10/23/20 10/23/20 10/23/20 Range/Units 06:10 07:30 07:30 Plt Count 532 H (150-450) k/uL APTT (22.0-30.0) sec D-Dimer (<0.60) mg/L FEU POC Glucose (mg/dL) 154 H (75-99) mg/dL Hemoglobin A1c 7.9 H (4.0-6.0) % 10/23/20 10/23/20 Range/Units 07:30 12:00 Plt Count (150-450) k/uL APTT 48.5 H (22.0-30.0) sec D-Dimer (<0.60) mg/L FEU POC Glucose (mg/dL) 145 H (75-99) mg/dL Hemoglobin A1c (4.0-6.0) %
[2020-10-23 17:07] LABS: Glucose,Whole Blood 156 mg/dL (75-99)
[2020-10-23] MEDS: SODIUM CHLORIDE 0.9% 1,000 ML IV SCH (18:06)
[2020-10-23 20:13] LABS: Glucose,Whole Blood 179 mg/dL (75-99)
[2020-10-23] MEDS: ATORVASTATIN 10 MG TAB PO SCH (20:18)
[2020-10-24 02:02] VITALS: RESP 18
[2020-10-24 06:19] LABS: Glucose,Whole Blood 150 mg/dL (75-99)
[2020-10-24] MEDS: NITROGLYCERIN OINT 1 INCH/GM PACKET TOPICAL SCH ×2 (06:39→13:26)
[2020-10-24] MEDS: INSULIN ASPART (NovoLOG) 100 UNIT/ML VIAL SQ SCH ×2 (06:39→13:26)
[2020-10-24] MEDS: ACETAMINOPHEN TAB 500 MG TAB PO SCH (08:33)
[2020-10-24] MEDS: ASPIRIN 81 MG PO SCH (08:33)
[2020-10-24] MEDS: amLODIPine 5 MG TAB PO SCH (08:34)
[2020-10-24] MEDS: LINAGLIPTIN 5 MG TABLET PO SCH (08:34)
[2020-10-24] MEDS: METOPROLOL TARTRATE 50 MG TAB PO SCH (08:34)
[2020-10-24] MEDS: FAMOTIDINE 20 MG TAB PO SCH (08:34)
[2020-10-24] MEDS: allopurinoL 100 MG TAB PO SCH (08:34)
[2020-10-24] MEDS: lisinopriL 10 MG TAB PO SCH (08:34)
[2020-10-24] MEDS: FLECAINIDE 50 MG TAB PO SCH (08:34)
[2020-10-24] MEDS ORDERED: FUROSEMIDE 40 MG TAB PO SCH (09:00)
[2020-10-24 10:01] LABS: Basophils # (A) 0.1 k/uL (0-0.2); Basophils % (A) 1 %; Eosinophils # (A) 0.4 k/uL (0-0.7); Eosinophils % (A) 5 %; HCT 38.2 % (34.0-46.0); HGB 12.4 gm/dL (11.4-16.0); Lymphocytes % (A) 22 %; MCH 30.3 pg (25.0-35.0); MCHC 32.4 g/dL (31.0-37.0); MCV 93.4 fL (80.0-100.0); Mean Platelet Volume 6.7; Monocytes # (A) 0.5 k/uL (0-1.0); Monocytes % (A) 6 %; Neutrophils # (A) 5.9 k/uL (1.3-7.7); Neutrophils % (A) 65 %; Platelet Count 528 k/uL (150-450); RBC 4.09 m/uL (3.80-5.40); RDW 13.4 % (11.5-15.5); WBC 9.1 k/uL (3.8-10.6)
[2020-10-24 10:15] LABS: Calcium 10.2 mg/dL (8.4-10.2); Potassium 4.6 mmol/L (3.5-5.1)
[2020-10-24 10:23] VITALS: TEMP 98
--- NOTE | 2020-10-24 11:19 | P.PN ---
Subjective Progress Note Date: 10/24/20 This is a pleasant 89-year-old female with past medical history for hypertension, diabetes, prior pacemaker, aortic insufficiency, patient underwent a cardiac catheterization at [facility] in 2019 which did not reveal any significant coronary artery disease, low to normal PCWP, severe aortic insufficiency, medical therapy advised at that time. She presented to the hospital here with symptoms of chest discomfort and was seen in consultation by Dr. Granda. Patient was seen and evaluated this morning, she continues to have chest pain, it appears to be strictly chest wall pain, her chest wall is very tender on palpation. Her breathing is overall stable. Blood pressure 136/70 with a heart rate is 70, 96% on room air. White blood cell count 9.1, hemoglobin 12.4, platelet count 528. Sodium 139, potassium 4.6, BUN 36, creatinine 1.3. Objective - Vital Signs Vital signs: Vital Signs Temp 98.0 F 10/24/20 08:00 Pulse 77 10/24/20 08:00 Resp 18 10/24/20 08:00 BP 136/74 10/24/20 08:00 Pulse Ox 96 10/24/20 08:00 Intake & Output 10/23/20 10/24/20 10/24/20 18:59 06:59 18:59 Intake Total 624.827 100 Output Total 1500 550 Balance -875.173 -450 Weight 57.3 kg Intake: Intake, IV Titration 144.827 Amount Heparin Sod,Pork in 0.45% 144.827 NaCl 25,000 unit In 0.45 % NaCl 1 250ml.bag @ 12 UNITS/KG/HR 7.076 mls/hr IV .Q24H [facility] Rx#: [id number] Oral 480 100 Output: Urine 1500 550 Other: Voiding Method Toilet Toilet # Voids 1 # Bowel Movements 1 - Exam PHYSICAL EXAMINATION: GENERAL: 89-year-old female in no acute distress at the time of my examination HEENT: Head is atraumatic, normocephalic. Pupils equal, round. Sclera anicteric. Conjunctiva are clear. Mucous membranes of the mouth are moist. Neck is supple. There is no elevated jugular venous pressure. No carotid bruit is heard. HEART EXAMINATION: Heart S1, S2 normal. No murmur or gallop heard. CHEST EXAMINATION: Lungs are clear to auscultation and precussion. No chest wall tenderness is noted on palpation or with deep breathing. ABDOMEN: Soft, nontender. Bowel sounds are heard. No organomegaly noted. EXTREMITIES: 2+ peripheral pulses with no evidence of peripheral edema and no calf tenderness noted. NEUROLOGIC patient is awake, alert and oriented 3 . - Labs CBC & Chem 7: 10/24/20 09:38 10/24/20 09:38 Labs: Abnormal Lab Results - Last 24 Hours (Table) 10/23/20 10/23/20 10/23/20 Range/Units 07:30 12:00 16:49 Plt Count (150-450) k/uL Carbon Dioxide (22-30) mmol/L BUN (7-17) mg/dL Creatinine (0.52-1.04) mg/dL Glucose (74-99) mg/dL POC Glucose (mg/dL) 145 H 156 H (75-99) mg/dL Hemoglobin A1c 7.9 H (4.0-6.0) % 10/23/20 10/24/20 10/24/20 Range/Units 20:11 06:14 09:38 Plt Count 528 H (150-450) k/uL Carbon Dioxide (22-30) mmol/L BUN (7-17) mg/dL Creatinine (0.52-1.04) mg/dL Glucose (74-99) mg/dL POC Glucose (mg/dL) 179 H 150 H (75-99) mg/dL Hemoglobin A1c (4.0-6.0) % 10/24/20 Range/Units 09:38 Plt Count (150-450) k/uL Carbon Dioxide 31 H (22-30) mmol/L BUN 36 H (7-17) mg/dL Creatinine 1.36 H (0.52-1.04) mg/dL Glucose 202 H (74-99) mg/dL POC Glucose (mg/dL) (75-99) mg/dL Hemoglobin A1c (4.0-6.0) % Assessment and Plan Plan: Assessment and plan #1 chest discomfort, possible acute coronary syndrome. #2 history of prior pacemaker implantation #3 severe aortic insufficiency by cardiac catheterization performed at [facility] one year ago. No evidence of a coronary artery disease #4 hypertension #5 hyperlipidemia #[address] Granda had a lengthy discussion with the patient this morning and his recommendation is that she be discharged home to follow-up with her creative coordinator at [facility] as an outpatient. DNP note has been reviewed, I agree with a documented findings and plan of care. Patient was seen and examined.
--- NOTE | 2020-10-24 11:42 | CDI ---
Documentation Clarification Form Date: 10/24/2020 11:35:58 AM From: Xenia DobbinsIDALIA, CCDS Admit Date: 10/21/2020 10:52:00 AM Patient Name: Abiola Lassiter Visit Number: [id number] Discharge Date: ATTENTION: The Clinical Documentation Specialists (CDI) and [facility] Coding Staff appreciate your assistance in clarifying documentation. Please respond to the clarification below the line at the bottom and electronically sign. The CDI & [facility] Coding staff will review the response and follow-up if needed. Please note: Queries are made part of the Legal Health Record. If you have any questions, please contact the author of this message via ITS. Dr. Amairani Joshi: Chronic Kidney Disease is documented in the ED note under the patient's history without further specificity. History/Risk Factors: CAD, Hypertension, Diastolic CHF, DM II. Clinical Indicators: Presented to the ED on 10/21 with chest pain, diagnosed with a NSTEMI and Acute Exacerbation of Diastolic CHF. Patient's current GFR: 43 Historical GFR: 12/05/2017: 59 Current BUN & Cr: 36^ & 1.36^ Treatment: Heparin drip, Telemetry, IV Lasix, Nitropaste. Nephrology has not been consulted. In order to capture the severity of condition, please clarify the stage of the CKD, if known: CKD ruled out CKD Stage 3: o CKD Stage 3a (GFR 45-59) o CKD Stage 3b (GFR 30-44) Other, please specify Unable to determine [Template Last reviewed: July 2020] 10/25 Query response documented in the 10/24 Discharge Summary (KEVAN Oneil for Dr. Joshi/Dr. Frederick): Chronic kidney disease stage III. MTDD
[2020-10-24 12:26] LABS: Glucose,Whole Blood 149 mg/dL (75-99)
--- NOTE | 2020-10-24 15:15 | P.DS ---
Providers Date of admission: 10/21/20 10:52 Expected date of discharge: 10/24/20 Attending physician: Jose Frederick Consults: 10/21/20 10:52 Consult Physician Urgent Consulting Provider: Trip Granda Consult Reason/Comments: NSTEMI, CHF Do you want consulting provider notified?: Already Contacted Primary care physician: Kathy Walker [facility] Course: This is a pleasant 89-year-old patient of Dr. Walker with known history of CAD hypertension pacemaker device, diabetes mellitus type 2, systolic dysfunction, moderate aortic stenosis and moderate aortic regurgitation, hypertension admitted to the emergency room secondary to an episode of chest pain that woke her up from her sleep. These lasted until her ER evaluation around 9:00 the morning for which she was subsequently seen in the emergency room. She follows with a stull hewer [facility] Dr. Mark for which his her last visit was over a year ago. Her last cardiac cath was in 2018, did not require any stents at that time. She has also prior history of cholecystectomy, chronic back pain, costochondritis. Patient denies any aspiration, no cough no fever, patient denies any recent trauma, and no pleurisy. Patient was seen with the daughter at bedside, who provides most of the foot patient. Patient has chest pressure left-sided she is not sure whether this is related to her pacemaker use or her heart she says, there is no radiation to the jaw or neck. No lightheadedness no syncope, patient denies any edema, or calf pain. She denies any aspiration no GI bleed, no melena When seen in the emergency room troponin garcia elevated 0.301, BNP of 6660, creatinine 1.13, hemoglobin 12.7, but fashion 5.3, WBC count of 16.8, chest x- ray shows increasing small left pleural effusion, stable minimal right pleural effusion, EKG shows paced rhythm, agents admitted for an STEMI, cardiology is consulted, transferred to the medical floor, with no current intervention except for medical management. Old report showed echocardiogram in May 2020, EF 45-50%, moderate AR, moderate left ear, mild MR and mild TR 10/22: Patient remains to be chest pain-free, has minimal shortness of breath, he she states this has some improvement patient remains to be on IV heparin, troponins are trending downward, IV Lasix, for which plan is for oral dosing of Lasix in the morning. 2-D echo is currently pending, cardiology is following closely but sugars are between 116-153, LDL of 36 creatinine of 1.13 at pressure 113 this systolic, with heart rate between 60-72. No hypoxemia, nor orthostasis nor aspiration events October 23: Patient is chest pain-free when resting, however patient complains of chest pain when she exerts and walks around, patient has no cough no fever, denies any PND. CHF changes on chest x-ray, awaiting cardiology for further cardiac testing, computed tomography scan of the chest failed to reveal any PE, d-dimer is elevated 10/24: Patient denies any complaints this morning. She denies any chest pain or shortness of breath. She states that her granddaughter Vickie is a nurse and helps her with medical decisions. We're waiting for cardiology input regarding plan. Patient has been afebrile, heart rate 77, blood pressure 136/74, pulse ox 96% on room air. Repeat blood work reveals Charmaine BC 9.1, hemoglobin 12.4, platelet count 528. BUN 36 creatinine 1.36, CO2 31. Patient will be discharged home today in stable condition. DISCHARGE DIAGNOSES 1. Acute non-STEMI with elevation of troponins, no CAD with prior cath in 2018, moderate to severe aortic stenosis. 2. Presence of pacemaker, possibly related to either sick sinus syndrome, and is currently paced 3. Chronic diastolic heart failure 4. Diabetes mellitus type 2. 5. Moderate to severe aortic stenosis. 6. Chronic kidney disease stage III. 7. Osteoporosis. 8. Pyuria without urinary tract infection. 9. Hyperlipidemia 10. Cardiac arrhythmia, pacemaker vs AICD 11. Hypertension with hypertensive cardiac vascular disease. Discharge plan: [facility] complex with VNA Impression and plan of care have been directed as dictated by the signing physician. Fide Zhang nurse practitioner acting as scribe for signing physician. Patient Condition at Discharge: Good Plan - Discharge Summary Discharge Rx Participant: No New Discharge Prescriptions: New Aspirin 81 mg PO DAILY chew Furosemide [Lasix] 40 mg PO DAILY #30 tab Continue Linagliptin [Tradjenta] 5 mg PO DAILY Acetaminophen [Tylenol Extra Strength] 500 mg PO BID allopurinoL [Zyloprim] 100 mg PO DAILY Atorvastatin [Lipitor] 10 mg PO HS Metoprolol Tartrate [Lopressor] 50 mg PO BID Flecainide [Tambocor] 50 mg PO Q12HR lisinopriL [Zestril] 10 mg PO BID Ferrous Sulfate [Iron (65 MG Elemental)] 325 mg PO Q48H amLODIPine [Norvasc] 5 mg PO DAILY Famotidine 20 mg PO BID Ergocalciferol [Vitamin D2 (DRISDOL)] 50,000 unit PO Q14D Discontinued Furosemide [Lasix] 20 mg PO DAILY #0 Aspirin EC [Ecotrin] 325 mg PO DAILY Discharge Medication List Acetaminophen [Tylenol Extra Strength] 500 mg PO BID 03/05/18 [History] Atorvastatin [Lipitor] 10 mg PO HS 03/05/18 [History] Flecainide [Tambocor] 50 mg PO Q12HR 03/05/18 [History] Linagliptin [Tradjenta] 5 mg PO DAILY 03/05/18 [History] Metoprolol Tartrate [Lopressor] 50 mg PO BID 03/05/18 [History] allopurinoL [Zyloprim] 100 mg PO DAILY 03/05/18 [History] lisinopriL [Zestril] 10 mg PO BID 06/12/20 [History] Ergocalciferol [Vitamin D2 (DRISDOL)] 50,000 unit PO Q14D 10/21/20 [History] Famotidine 20 mg PO BID 10/21/20 [History] Ferrous Sulfate [Iron (65 MG Elemental)] 325 mg PO Q48H 10/21/20 [History] amLODIPine [Norvasc] 5 mg PO DAILY 10/21/20 [History] Aspirin 81 mg PO DAILY chew 10/24/20 [Rx] Furosemide [Lasix] 40 mg PO DAILY #30 tab 10/24/20 [Rx] Follow up Appointment(s)/Referral(s): Kathy Walker DO [Primary Care Provider] - 1 Week Activity/Diet/Wound Care/Special Instructions: Follow-up with stull hewer at [place] in one week for possible TAVR Discharge Disposition: HOME SELF-CARE
[2020-10-24 15:55] VITALS: BP 126/68; PULSE 66
[2020-11-03] MEDS ORDERED: ERGOCALCIFEROL 50,000 UNIT CAP PO SCH (09:00)
== END 2020-10-24 16:45 | disposition home health service (06) | DRG 280 ==
LOC: EC 08:40 → 3SCARD 10:52
PROVIDERS: ADMIT Internal Medicine Geriatric Medicine; ATTEND Internal Medicine Geriatric Medicine
DX: I21.4 Non-ST elevation (NSTEMI) myocardial infarction (principal); I50.33 Acute on chronic diastolic (congestive) heart failure; I13.0 Hypertensive heart and chronic kidney disease with heart failure and stage 1 through stage 4 chronic kidney disease, or unspecified chronic kidney disease; I49.5 Sick sinus syndrome; E11.22 Type 2 diabetes mellitus with diabetic chronic kidney disease; N18.30 Chronic kidney disease, stage 3 unspecified; E86.0 Dehydration; I08.3 Combined rheumatic disorders of mitral, aortic and tricuspid valves; I25.10 Atherosclerotic heart disease of native coronary artery without angina pectoris; G89.29 Other chronic pain; M54.9 Dorsalgia, unspecified; M81.0 Age-related osteoporosis without current pathological fracture; E78.5 Hyperlipidemia, unspecified; I83.90 Asymptomatic varicose veins of unspecified lower extremity; R82.81 Pyuria; Z79.82 Long term (current) use of aspirin; Z79.84 Long term (current) use of oral hypoglycemic drugs; Z79.899 Other long term (current) drug therapy; Z87.440 Personal history of urinary (tract) infections; Z95.0 Presence of cardiac pacemaker; Z90.49 Acquired absence of other specified parts of digestive tract; Z87.19 Personal history of other diseases of the digestive system; Z98.42 Cataract extraction status, left eye; Z98.41 Cataract extraction status, right eye; Z88.8 Allergy status to other drugs, medicaments and biological substances; Z82.49 Family history of ischemic heart disease and other diseases of the circulatory system
CPT/HCPCS: 36415; 71046; 71275; 80048; 80053; 80061; 81001; 82550; 83036; 83735; 83880; 84484; 85025; 85379; 85610; 85730; 93005; 93306; 96374; 99291

== ENCOUNTER 2021-01-08 12:56 | Emergency (ER) | payer MEDICARE, BC ==
[2021-01-08 13:06] VITALS: RESP 18; TEMP 97.8
[2021-01-08 13:18] LABS: Glucose,Whole Blood 100 mg/dL (75-99)
[2021-01-08 13:36] LABS: Basophils % (A) 1 %; Eosinophils # (A) 0.2 k/uL (0-0.7); Eosinophils % (A) 3 %; HCT 42.5 % (34.0-46.0); HGB 13.5 gm/dL (11.4-16.0); Lymphocytes # (A) 2.1 k/uL (1.0-4.8); Lymphocytes % (A) 27 %; MCH 30.4 pg (25.0-35.0); MCHC 31.8 g/dL (31.0-37.0); MCV 95.5 fL (80.0-100.0); Mean Platelet Volume 8.2; Monocytes # (A) 0.3 k/uL (0-1.0); Monocytes % (A) 4 %; Neutrophils # (A) 4.8 k/uL (1.3-7.7); Neutrophils % (A) 63 %; Platelet Count 271 k/uL (150-450); RBC 4.45 m/uL (3.80-5.40); RDW 15.4 % (11.5-15.5); WBC 7.6 k/uL (3.8-10.6)
[2021-01-08 13:41] LABS: Albumin 4.6 g/dL (3.5-5.0); Calcium 10.5 mg/dL (8.4-10.2); Total Bilirubin 0.6 mg/dL (0.2-1.3); Total Protein 7.4 g/dL (6.3-8.2)
--- NOTE | 2021-01-08 13:41 | ED ---
Neuro HPI - General Chief Complaint: Neuro Symptoms/Deficit Stated Complaint: POSSIBLE TIA Time Seen by Provider: 01/08/21 12:56 Source: patient, EMS, RN notes reviewed Mode of arrival: EMS Limitations: no limitations - History of Present Illness Is the patient presenting with stroke symptoms?: No Last Known Well Date: 01/08/21 Last Known Well Time: 11:30 Initial Comments: this is a 89-year-old female was brought in by EMS from a restaurant where she was eating when she started developing slurred speech left facial droop left upper extremity weakness. He was found have adequate blood pressure adequate blood sugar. No prior history of strokes. Upon arrival the symptoms have resolved except for a little bit is beats impediment. No headache blurry vision nausea vomiting fevers chills sweats no trauma reported no other modifying factors at this time - Related Data Home Medications: Home Medications Medication Instructions Recorded Confirmed Acetaminophen [Tylenol Extra 500 mg PO BID 03/05/18 10/21/20 Strength] Atorvastatin [Lipitor] 10 mg PO HS 03/05/18 10/21/20 Flecainide [Tambocor] 50 mg PO Q12HR 03/05/18 10/21/20 Linagliptin [Tradjenta] 5 mg PO DAILY 03/05/18 10/21/20 Metoprolol Tartrate [Lopressor] 50 mg PO BID 03/05/18 10/21/20 allopurinoL [Zyloprim] 100 mg PO DAILY 03/05/18 10/21/20 lisinopriL [Zestril] 10 mg PO BID 06/12/20 10/21/20 Ergocalciferol [Vitamin D2 50,000 unit PO Q14D 10/21/20 10/21/20 (DRISDOL)] Famotidine 20 mg PO BID 10/21/20 10/21/20 Ferrous Sulfate [Iron (65 MG 325 mg PO Q48H 10/21/20 10/21/20 Elemental)] amLODIPine [Norvasc] 5 mg PO DAILY 10/21/20 10/21/20 Aspirin 81 mg PO HS 01/08/21 01/08/21 Furosemide [Lasix] 20 mg PO BID 01/08/21 01/08/21 Allergies/Adverse Reactions: Allergies Allergy/AdvReac Type Severity Reaction Status Date / Time simvastatin [From Zocor] Allergy Unknown Verified 02/14/21 14:31 Review of Systems ROS Statement: Those systems with pertinent positive or pertinent negative responses have been documented in the HPI. ROS Other: All systems not noted in ROS Statement are negative. General Exam - General Exam Comments Initial Comments: this is a well-developed well-nourished awake alert oriented 3 female Limitations: no limitations General appearance: alert, in no apparent distress Head exam: Present: atraumatic, normocephalic, normal inspection Eye exam: Present: normal appearance, PERRL, EOMI. Absent: scleral icterus, conjunctival injection, periorbital swelling ENT exam: Present: normal exam, mucous membranes moist Neck exam: Present: normal inspection, full ROM, other (no stridor JVD or bruits). Absent: tenderness, meningismus, lymphadenopathy Respiratory exam: Present: normal lung sounds bilaterally. Absent: respiratory distress, wheezes, rales, rhonchi, stridor Cardiovascular Exam: Present: regular rate, normal rhythm, normal heart sounds. Absent: systolic murmur, diastolic murmur, rubs, gallop, clicks GI/Abdominal exam: Present: soft, normal bowel sounds. Absent: distended, tenderness, guarding, rebound, rigid Extremities exam: Present: normal inspection, full ROM, normal capillary refill. Absent: tenderness, pedal edema, joint swelling, calf tenderness Back exam: Present: normal inspection Neurological exam: Present: alert, oriented X3, other (a very slight amount of her speech.) Psychiatric exam: Present: normal affect, normal mood Skin exam: Present: warm, dry, intact, normal color. Absent: rash Stroke MDM - Lab Data Result diagrams: 01/08/21 13:21 01/08/21 13:21 Lab Results 01/08/21 01/08/21 01/08/21 Range/Units 13:16 13:21 13:21 WBC 7.6 (3.8-10.6) k/uL RBC 4.45 (3.80-5.40) m/uL Hgb 13.5 (11.4-16.0) gm/dL Hct 42.5 (34.0-46.0) % MCV 95.5 (80.0-100.0) fL MCH 30.4 (25.0-35.0) pg MCHC 31.8 (31.0-37.0) g/dL RDW 15.4 (11.5-15.5) % Plt Count 271 (150-450) k/uL MPV 8.2 Neutrophils % 63 % Lymphocytes % 27 % Monocytes % 4 % Eosinophils % 3 % Basophils % 1 % Neutrophils # 4.8 (1.3-7.7) k/uL Lymphocytes # 2.1 (1.0-4.8) k/uL Monocytes # 0.3 (0-1.0) k/uL Eosinophils # 0.2 (0-0.7) k/uL Basophils # 0.0 (0-0.2) k/uL PT 9.8 (9.0-12.0) sec INR 0.9 (<1.2) APTT 21.2 L (22.0-30.0) sec Sodium (137-145) mmol/L Potassium (3.5-5.1) mmol/L Chloride (98-107) mmol/L Carbon Dioxide (22-30) mmol/L Anion Gap mmol/L BUN (7-17) mg/dL Creatinine (0.52-1.04) mg/dL Est GFR (CKD-EPI)AfAm (>60 ml/min/1.73 sqM) Est GFR (CKD-EPI)NonAf (>60 ml/min/1.73 sqM) Glucose (74-99) mg/dL POC Glucose (mg/dL) 100 H (75-99) mg/dL POC Glu Administrative Professional ID Calcium (8.4-10.2) mg/dL Total Bilirubin (0.2-1.3) mg/dL AST (14-36) U/L ALT (4-34) U/L Alkaline Phosphatase (38-126) U/L Creatine Kinase (30-135) U/L Troponin I (0.000-0.034) ng/mL Total Protein (6.3-8.2) g/dL Albumin (3.5-5.0) g/dL 01/08/21 01/08/21 Range/Units 13:21 13:21 WBC (3.8-10.6) k/uL RBC (3.80-5.40) m/uL Hgb (11.4-16.0) gm/dL Hct (34.0-46.0) % MCV (80.0-100.0) fL MCH (25.0-35.0) pg MCHC (31.0-37.0) g/dL RDW (11.5-15.5) % Plt Count (150-450) k/uL MPV Neutrophils % % Lymphocytes % % Monocytes % % Eosinophils % % Basophils % % Neutrophils # (1.3-7.7) k/uL Lymphocytes # (1.0-4.8) k/uL Monocytes # (0-1.0) k/uL Eosinophils # (0-0.7) k/uL Basophils # (0-0.2) k/uL PT (9.0-12.0) sec INR (<1.2) APTT (22.0-30.0) sec Sodium 138 (137-145) mmol/L Potassium 5.0 (3.5-5.1) mmol/L Chloride 100 (98-107) mmol/L Carbon Dioxide 28 (22-30) mmol/L Anion Gap 10 mmol/L BUN 48 H (7-17) mg/dL Creatinine 1.55 H (0.52-1.04) mg/dL Est GFR (CKD-EPI)AfAm 34 (>60 ml/min/1.73 sqM) Est GFR (CKD-EPI)NonAf 30 (>60 ml/min/1.73 sqM) Glucose 231 H (74-99) mg/dL POC Glucose (mg/dL) (75-99) mg/dL POC Glu Administrative Professional ID Calcium 10.5 H (8.4-10.2) mg/dL Total Bilirubin 0.6 (0.2-1.3) mg/dL AST 27 (14-36) U/L ALT 15 (4-34) U/L Alkaline Phosphatase 74 (38-126) U/L Creatine Kinase 89 (30-135) U/L Troponin I 0.018 (0.000-0.034) ng/mL Total Protein 7.4 (6.3-8.2) g/dL Albumin 4.6 (3.5-5.0) g/dL - NIH Stroke Scale 1a. Level of Consciousness: (0) alert 1b. LOC Questions: (0) answers correctly 1c. LOC Commands: (0) performs tasks correctly 2. Best Gaze: (0) normal 3. Visual: (0) no visual loss 4. Facial Palsy: (0) normal symmetrical movement 5a. Motor Arm Left: (0) no drift 5b. Motor Arm Right: (0) no drift 6a. Motor Leg Left: (0) no drift 6b. Motor Leg Right: (0) no drift 7. Limb Ataxia: (0) absent 8. Sensory: (0) normal 9. Best Language: (1) mild/moderate aphasia 10. Dysarthria: (0) normal 11. Extinction/Inattention: (0) no abnormality - Medical Decision Making I did discuss the findings with the patient and family members also with Dr. Ott of the interventional stroke team. Patient will be transferred to [facility] for higher level care. - EKG Data -: EKG Interpreted by Me (atrial sensed ventricular paced rhythm long AV conduction rate 74 FL interv) Past Medical History Past Medical History: Coronary Artery Disease (CAD), Diabetes Mellitus, Hyperte nsion Additional Past Medical History / Comment(s): varicose veins, constip ation/diarrhea, "slow heart rate", type 2 diabetic History of Any Multi-Drug Resistant Organisms: None Reported Past Surgical History: Cholecystectomy, Pacemaker Additional Past Surgical History / Comment(s): nahid cataracts Past Anesthesia/Blood Transfusion Reactions: No Reported Reaction Type of Cardiac Device: Permanent Pacemaker Device Placement Date:: 2011 Past Psychological History: No Psychological Hx Reported Smoking Status: Never smoker Past Alcohol Use History: None Reported Past Drug Use History: None Reported - Past Family History Mother Family Medical History: No Reported History Additional Family Medical History / Comment(s): Mother at age 70 from myocardial infarction. Brother(s) Family Medical History: Cancer Additional Family Medical History / Comment(s): Patient had a total of 7 brothers and sisters. One brother still alive at age 92. Patient does not recall medical history and other siblings. Sister(s) Family Medical History: Cancer Father Additional Family Medical History / Comment(s): Father in his 60s from coronary artery disease. Course Vital Signs 01/08/21 01/08/21 13:02 14:03 Temperature 97.8 F 97.8 F Pulse Rate 76 78 Respiratory 18 18 Rate Blood Pressure 122/68 122/64 O2 Sat by Pulse 99 98 Oximetry - Reevaluation(s) Reevaluation #1: 01/08/21 14:30 reevaluation patient reveals improvement in her speech her daughter is presently did discuss the findings thus far. Reevaluation #2: 01/08/21 14:41 did discuss the findings with Dr. Ott the interventional neurologist. Patient will be transferred to [facility]. The case was discussed with Dr. García who is agreed to set the patient transfer Critical Care Time Critical Care Time: Yes Total Critical Care Time: 35 Critical Care Time: stated includes initial presentation with history physical labs x-rays and CAT scans discussed with paramedics upon arrival multiple reevaluation patient is well multiple physicians and documentation the above. Disposition Clinical Impression: Hemorrhagic cerebrovascular accident (CVA) Disposition: OTHER INSTITUTION NOT DEFINED Condition: Fair Is patient prescribed a controlled substance at d/c from ED?: No Referrals: None,Stated [REFERRING] - 1-2 days - Out of Hospital Transfer - Req. Specs Out of Hospital Transfer - Requested Specifics: Other Emergency Center
[2021-01-08 13:50] LABS: INR 0.9 (<1.2); Prothrombin Time 9.8 sec (9.0-12.0)
--- NOTE | 2021-01-08 13:52 | CT ---
EXAMINATION TYPE: CT brain wo con for TPA DATE OF EXAM: 01/08/2021 COMPARISON: 06/12/2020. HISTORY: slurred speech CT DLP: 1014 mGycm Automated exposure control for dose reduction was used. FINDINGS: There is small intraparenchymal hemorrhage in the left parietal lobe. No significant midline shift or hydrocephalus. There is mild to moderate white matter disease and parenchymal volume loss. The paran conor sinuses and mastoid air cells are adequately aerated. The calvarium is intact. IMPRESSION: SMALL LEFT PARIETAL LOBE INTRAPARENCHYMAL HEMORRHAGE. NO SIGNIFICANT MIDLINE SHIFT. FINDINGS WERE REPORTED TO DR. DUNNE BY ME AT TIME OF DICTATION.
--- NOTE | 2021-01-08 13:53 | XR ---
EXAMINATION TYPE: XR chest 2V DATE OF EXAM: 01/08/2021 COMPARISON: 10/21/2020. HISTORY: Altered mental status. TECHNIQUE: Frontal and lateral views of the chest are obtained. FINDINGS: There is no focal air space opacity, pleural effusion, or pneumothorax seen. The cardiac silhouette size is within normal limits. Left pacemaker is seen. The osseous structures are without acute abnormality. Severe osteoarthritis of the right glenohumeral joint. IMPRESSION: No acute cardiopulmonary process.
[2021-01-08 13:55] LABS: Partial Thromboplastin Time 21.2 sec (22.0-30.0)
[2021-01-08 14:05] VITALS: BP 122/64; PULSE 78
--- NOTE | 2021-01-08 14:09 | CT ---
EXAMINATION TYPE: CT angio head neck DATE OF EXAM: 01/08/2021 HISTORY: slurred speech COMPARISON: Same-day CT head. CT DLP: 362.5 mGycm. Automated Exposure Control for Dose Reduction was Utilized. TECHNIQUE: CTA scan of the head and neck is performed with IV Contrast, patient injected with 65 mL of Isovue 370, axial images are obtained, coronal and sagittal reformatted images are reviewed. Three -D reconstructed images are created on an independent workstation and reviewed. FINDINGS: There is mild to moderate atherosclerosis of the aortic arch. Otherwise normal three-vessel branching of the aorta. There is moderate approximately 50% stenosis of the left proximal ICA and mild less th an 50% stenosis of the right proximal ICA. The remainder of bilateral common carotid, cervical internal communications specialist al carotid and vertebral arteries are grossly intact. There is a nondominant right vertebral artery variant with dysplastic V4 segment. Otherwise no eviden ce of high-grade stenosis, dissection or aneurysm in the intracranial internal carotid arteries, ante rior, middle and posterior cerebral arteries as well as in the imaged vertebral and basilar arteries. The communicating arteries are unremarkable. IMPRESSION: No acute abnormality of the CTA head/neck. Moderate left and mild right proximal ICA stenosis. Small left parietal lobe intracranial hemorrhage, better depicted on the noncontrast CT.
== END 2021-01-08 15:20 | disposition other institution (70) ==
LOC: EC 12:56
DX: I62.9 Nontraumatic intracranial hemorrhage, unspecified (principal); I10 Essential (primary) hypertension; E11.9 Type 2 diabetes mellitus without complications; I25.10 Atherosclerotic heart disease of native coronary artery without angina pectoris; Z20.822 Contact with and (suspected) exposure to COVID-19; Z79.899 Other long term (current) drug therapy; Z79.84 Long term (current) use of oral hypoglycemic drugs; Z79.82 Long term (current) use of aspirin; Z88.8 Allergy status to other drugs, medicaments and biological substances
CPT/HCPCS: 99291; 36415; 93005; 80053; 82550; 84484; 85025; 85610; 85730; 87635; 71046; 70496; 70450; 70498; Q9967

== ENCOUNTER 2021-01-12 20:46 | Inpatient (IN) | payer MEDICARE, BC ==
[2021-01-12 20:58] LABS: Glucose,Whole Blood 177 mg/dL (75-99)
--- NOTE | 2021-01-12 21:07 | ED ---
Neuro HPI - General Chief Complaint: Neuro Symptoms/Deficit Stated Complaint: Stroke-like symptoms Time Seen by Provider: 01/12/21 20:46 Source: patient, EMS, RN notes reviewed Mode of arrival: EMS Limitations: no limitations - History of Present Illness Is the patient presenting with stroke symptoms?: Yes Last Known Well Date: 01/12/21 Last Known Well Time: 19:00 Initial Comments: This is a 89-year-old female who presents tonight with complaints of weakness to her arms and difficulty with speech and happened just prior to EMS being called on arrival here. She states everything has improved except she saw some speech deficits. She does states she was diagnosed with a bleed in her brain last weekend. She has a fevers chills nausea vomiting sweats no headache no blurry vision. She does states she had quite a bit of a workup done at [facility]. - Related Data Home Medications: Home Medications Medication Instructions Recorded Confirmed Acetaminophen [Tylenol Extra 500 mg PO BID 03/05/18 01/08/21 Strength] Atorvastatin [Lipitor] 10 mg PO HS 03/05/18 01/08/21 Flecainide [Tambocor] 50 mg PO Q12HR 03/05/18 01/08/21 Linagliptin [Tradjenta] 5 mg PO DAILY 03/05/18 01/08/21 Metoprolol Tartrate [Lopressor] 50 mg PO BID 03/05/18 01/08/21 allopurinoL [Zyloprim] 100 mg PO DAILY 03/05/18 01/08/21 lisinopriL [Zestril] 10 mg PO BID 06/12/20 01/08/21 Ergocalciferol [Vitamin D2 50,000 unit PO Q14D 10/21/20 01/08/21 (DRISDOL)] Famotidine 20 mg PO BID 10/21/20 01/08/21 Ferrous Sulfate [Iron (65 MG 325 mg PO Q48H 10/21/20 01/08/21 Elemental)] amLODIPine [Norvasc] 5 mg PO DAILY 10/21/20 01/08/21 Aspirin 81 mg PO HS 01/08/21 01/08/21 Furosemide [Lasix] 20 mg PO BID 01/08/21 01/08/21 Allergies/Adverse Reactions: Allergies Allergy/AdvReac Type Severity Reaction Status Date / Time simvastatin [From Zocor] Allergy Unknown Verified 01/08/21 14:31 Review of Systems ROS Statement: Those systems with pertinent positive or pertinent negative responses have been documented in the HPI. ROS Other: All systems not noted in ROS Statement are negative. General Exam - General Exam Comments Initial Comments: This is a well-developed well-nourished awake alert oriented 3 female Limitations: no limitations General appearance: alert, anxious Head exam: Present: atraumatic, normocephalic, normal inspection Eye exam: Present: normal appearance, PERRL, EOMI. Absent: scleral icterus, conjunctival injection, periorbital swelling ENT exam: Present: normal exam, mucous membranes moist, other (He does seem to demonstrate some difficulty with speech) Neck exam: Present: normal inspection. Absent: tenderness, meningismus, lymphadenopathy Respiratory exam: Present: normal lung sounds bilaterally. Absent: respiratory distress, wheezes, rales, rhonchi, stridor Cardiovascular Exam: Present: regular rate, normal rhythm, normal heart sounds. Absent: systolic murmur, diastolic murmur, rubs, gallop, clicks GI/Abdominal exam: Present: soft, normal bowel sounds. Absent: distended, tenderness, guarding, rebound, rigid Extremities exam: Present: normal inspection, full ROM, normal capillary refill. Absent: tenderness, pedal edema, joint swelling, calf tenderness Back exam: Present: normal inspection Neurological exam: Present: alert, oriented X3, other (Slight difficulty with speech no other findings) Psychiatric exam: Present: normal affect, normal mood Skin exam: Present: warm, dry, intact, normal color. Absent: rash Stroke MDM - Lab Data Result diagrams: 01/12/21 21:09 01/12/21 21:09 Lab Results 01/12/21 01/12/21 01/12/21 Range/Units 20:49 21:09 21:09 WBC 9.4 (3.8-10.6) k/uL RBC 4.25 (3.80-5.40) m/uL Hgb 13.6 (11.4-16.0) gm/dL Hct 40.2 (34.0-46.0) % MCV 94.5 (80.0-100.0) fL MCH 32.0 (25.0-35.0) pg MCHC 33.9 (31.0-37.0) g/dL RDW 14.9 (11.5-15.5) % Plt Count 243 (150-450) k/uL MPV 8.0 Neutrophils % 61 % Lymphocytes % 25 % Monocytes % 7 % Eosinophils % 5 % Basophils % 1 % Neutrophils # 5.7 (1.3-7.7) k/uL Lymphocytes # 2.3 (1.0-4.8) k/uL Monocytes # 0.6 (0-1.0) k/uL Eosinophils # 0.5 (0-0.7) k/uL Basophils # 0.1 (0-0.2) k/uL PT 9.6 (9.0-12.0) sec INR 0.9 (<1.2) APTT 21.7 L (22.0-30.0) sec Sodium (137-145) mmol/L Potassium (3.5-5.1) mmol/L Chloride (98-107) mmol/L Carbon Dioxide (22-30) mmol/L Anion Gap mmol/L BUN (7-17) mg/dL Creatinine (0.52-1.04) mg/dL Est GFR (CKD-EPI)AfAm (>60 ml/min/1.73 sqM) Est GFR (CKD-EPI)NonAf (>60 ml/min/1.73 sqM) Glucose (74-99) mg/dL POC Glucose (mg/dL) 177 H (75-99) mg/dL POC Glu Help Desk Support Specialist Nichole Cotton Calcium (8.4-10.2) mg/dL Total Bilirubin (0.2-1.3) mg/dL AST (14-36) U/L ALT (4-34) U/L Alkaline Phosphatase (38-126) U/L Creatine Kinase (30-135) U/L Troponin I (0.000-0.034) ng/mL Total Protein (6.3-8.2) g/dL Albumin (3.5-5.0) g/dL 01/12/21 01/12/21 Range/Units 21:09 21:09 WBC (3.8-10.6) k/uL RBC (3.80-5.40) m/uL Hgb (11.4-16.0) gm/dL Hct (34.0-46.0) % MCV (80.0-100.0) fL MCH (25.0-35.0) pg MCHC (31.0-37.0) g/dL RDW (11.5-15.5) % Plt Count (150-450) k/uL MPV Neutrophils % % Lymphocytes % % Monocytes % % Eosinophils % % Basophils % % Neutrophils # (1.3-7.7) k/uL Lymphocytes # (1.0-4.8) k/uL Monocytes # (0-1.0) k/uL Eosinophils # (0-0.7) k/uL Basophils # (0-0.2) k/uL PT (9.0-12.0) sec INR (<1.2) APTT (22.0-30.0) sec Sodium 139 (137-145) mmol/L Potassium 4.2 (3.5-5.1) mmol/L Chloride 105 (98-107) mmol/L Carbon Dioxide 24 (22-30) mmol/L Anion Gap 10 mmol/L BUN 27 H (7-17) mg/dL Creatinine 0.97 (0.52-1.04) mg/dL Est GFR (CKD-EPI)AfAm 60 (>60 ml/min/1.73 sqM) Est GFR (CKD-EPI)NonAf 52 (>60 ml/min/1.73 sqM) Glucose 187 H (74-99) mg/dL POC Glucose (mg/dL) (75-99) mg/dL POC Glu Help Desk Support Specialist ID Calcium 10.2 (8.4-10.2) mg/dL Total Bilirubin 0.3 (0.2-1.3) mg/dL AST 22 (14-36) U/L ALT 15 (4-34) U/L Alkaline Phosphatase 74 (38-126) U/L Creatine Kinase 51 (30-135) U/L Troponin I <0.012 (0.000-0.034) ng/mL Total Protein 6.9 (6.3-8.2) g/dL Albumin 4.1 (3.5-5.0) g/dL - EKG Data -: EKG Interpreted by Me (AV dual paced rhythm with prolonged AV conduction rate 64. 250 to QRS 206 ) Past Medical History Past Medical History: Coronary Artery Disease (CAD), Diabetes Mellitus, Hypertension Additional Past Medical History / Comment(s): varicose veins, constipation/diarrhea, "slow heart rate", type 2 diabetic History of Any Multi-Drug Resistant Organisms: None Reported Past Surgical History: Cholecystectomy, Pacemaker Additional Past Surgical History / Comment(s): nahid cataracts Past Anesthesia/Blood Transfusion Reactions: No Reported Reaction Type of Cardiac Device: Permanent Pacemaker Device Placement Date:: 2011 Past Psychological History: No Psychological Hx Reported Smoking Status: Never smoker Past Alcohol Use History: None Reported Past Drug Use History: None Reported - Past Family History Mother Family Medical History: No Reported History Additional Family Medical History / Comment(s): Mother at age 70 from myocardial infarction. Brother(s) Family Medical History: Cancer Additional Family Medical History / Comment(s): Patient had a total of 7 brothers and sisters. One brother still alive at age 92. Patient does not recall medical history and other siblings. Sister(s) Family Medical History: Cancer Father Additional Family Medical History / Comment(s): Father in his 60s from coronary artery disease. Course Vital Signs 01/12/21 20:48 Temperature 98.9 F Pulse Rate 65 Respiratory 18 Rate Blood Pressure 150/56 O2 Sat by Pulse 98 Oximetry - Reevaluation(s) Reevaluation #1: 01/12/21 22:52 Reevaluation patient finds that she has resolved with respect to her symptoms except for some slight speech impediment. Repeat CAT scan today shows evidence of a stable left parenchymal frontal bleed I did discuss the case with Dr. Kim in addition to Dr. Boyd and Dr. Fraire. Patient be admitted to this facility for evaluation of apparent TIA. Patient is awake alert oriented 3 with stable vital signs at this time. Blood pressure is to be monitored closely. Critical Care Time Critical Care Time: Yes Total Critical Care Time: 35 Critical Care Time: Critical care time includes initial presentation with history physical labs x- rays discussed with paramedics on arrival multiple reevaluation the patient review of old charting was available discussed with multiple physicians admission orders and documentation of the above Disposition Clinical Impression: Transient cerebral ischemia, Cerebral parenchymal hemorrhage Disposition: ADMITTED IP TO THIS [facility] Condition: Stable Referrals: Kathy Walker DO [Primary Care Provider] - 1-2 days
[2021-01-12 21:17] LABS: Basophils # (A) 0.1 k/uL (0-0.2); Basophils % (A) 1 %; Eosinophils # (A) 0.5 k/uL (0-0.7); Eosinophils % (A) 5 %; HCT 40.2 % (34.0-46.0); HGB 13.6 gm/dL (11.4-16.0); Lymphocytes # (A) 2.3 k/uL (1.0-4.8); Lymphocytes % (A) 25 %; MCHC 33.9 g/dL (31.0-37.0); MCV 94.5 fL (80.0-100.0); Monocytes # (A) 0.6 k/uL (0-1.0); Monocytes % (A) 7 %; Neutrophils # (A) 5.7 k/uL (1.3-7.7); Neutrophils % (A) 61 %; Platelet Count 243 k/uL (150-450); RBC 4.25 m/uL (3.80-5.40); RDW 14.9 % (11.5-15.5); WBC 9.4 k/uL (3.8-10.6)
[2021-01-12 21:33] LABS: INR 0.9 (<1.2); Prothrombin Time 9.6 sec (9.0-12.0)
--- NOTE | 2021-01-12 21:37 | CT ---
EXAMINATION: CT brain wo con for TPA DATE AND TIME: 01/12/2021 9:26 PM CLINICAL INDICATION: PHH; Neuro deficit, acute, stroke suspected TECHNIQUE: Standard departmental protocol DLP: 1092.4 mGy-cm COMPARISON: 01/08/2021 FINDINGS: The calvarium is intact. The previously seen small intraparenchymal left parietal lobe high attenuation compatible with hemorr dae is unchanged. There is no intracranial mass or mass effect. No definite new intra-axial or extra-axial attenuation defect. The paranasal sinuses, middle ear cavities, and mastoid sinus air cells are clear. The orbits are unremarkable. IMPRESSION: 1. No acute process. 2. Stable-appearing left parietal lobe focus seen on the CT 4 days ago.
[2021-01-12 21:39] LABS: Partial Thromboplastin Time 21.7 sec (22.0-30.0)
--- NOTE | 2021-01-12 21:39 | XR ---
EXAMINATION: XR chest 2V DATE AND TIME: 01/12/2021 9:26 PM CLINICAL INDICATION: PHH; altered mental status TECHNIQUE: Departmental protocol COMPARISON: 01/08/2021 FINDINGS: Cardiac pacemaker noted. The lungs are clear. The pleural spaces demonstrate blunting of the left costophrenic angle laterally and posteriorly, con sistent with new small left pleural effusion, new since the prior study of 01/08/2021. The cardiac silhouette is mildly enlarged, unchanged. The remainder of the mediastinal silhouette is unremarkable. The skeletal structures and soft tissues are negative for acute findings. IMPRESSION: New small left pleural effusion.
[2021-01-12 21:49] LABS: Albumin 4.1 g/dL (3.5-5.0); Calcium 10.2 mg/dL (8.4-10.2); Potassium 4.2 mmol/L (3.5-5.1); Total Bilirubin 0.3 mg/dL (0.2-1.3); Total Protein 6.9 g/dL (6.3-8.2)
[2021-01-12] MEDS ORDERED: LABETALOL 5 MG/ML VIAL MDV IVP PRN (22:55)
[2021-01-13 00:28] LABS: Glucose,Whole Blood 142 mg/dL (75-99)
[2021-01-13] MEDS: SODIUM CHLORIDE 0.9% 1,000 ML IV SCH (00:30)
[2021-01-13 06:47] LABS: Glucose,Whole Blood 132 mg/dL (75-99)
[2021-01-13 08:24] LABS: Cholesterol 135 mg/dL (<200); HDL Cholesterol 39 mg/dL (40-60); LDL Cholesterol,Calculated 55 mg/dL (0-99); Triglycerides 203 mg/dL (<150)
[2021-01-13] MEDS: FAMOTIDINE 20 MG TAB PO SCH ×2 (08:46→20:51)
[2021-01-13] MEDS: ACETAMINOPHEN TAB 500 MG TAB PO SCH ×2 (08:46→20:51)
[2021-01-13] MEDS: allopurinoL 100 MG TAB PO SCH (08:46)
[2021-01-13] MEDS: LINAGLIPTIN 5 MG TABLET PO SCH (08:47)
[2021-01-13] MEDS: METOPROLOL TARTRATE 50 MG TAB PO SCH ×2 (08:47→20:51)
[2021-01-13] MEDS: FLECAINIDE 50 MG TAB PO SCH ×2 (08:47→20:51)
[2021-01-13] MEDS: FERROUS SULFATE 325 MG TAB PO SCH (08:47)
[2021-01-13] MEDS: lisinopriL 10 MG TAB PO SCH ×2 (08:47→20:51)
[2021-01-13] MEDS: FUROSEMIDE 20 MG TAB PO SCH ×2 (08:47→20:51)
[2021-01-13] MEDS ORDERED: amLODIPine 5 MG TAB PO SCH (09:00)
--- NOTE | 2021-01-13 10:05 | P.CNNES ---
History of Present Illness Consult date: 01/13/21 Requesting physician: Jose R Rubio Reason for Consult: transient episode of speech diffuclyt andarm weakness concerning for TIA History of Present Illness: This is an 89-year-old woman with medical history of small left parietal bleed (01/08/21), coronary artery disease, status post pacemaker diabetes mellitus and hypertension that presented to the emergency department on 01/12/2021 for complaints of speech difficulty as well as numbness of bilateral upper extremities and weakness. Last normal state is about 1900 on 01/12/2021 per ED. On 01/08/2021 she presented that to [facility] emergency department for slurring the speech and left facial droop as well as the left upper extremity weakness that is reported by ED note. About patient notified me that the during that day and she had that difficulty getting her words out and that they're not coming out right, she felt like her she was having bilateral upper extremity the numbness and possibly weakness but she was not consistent regarding the weakness I asked her if 1 side was weaker than the other and she said no both of him were numb. She said her episode lasted the half hour to an hour. She had a CT of the head which was reported as small left parietal lobe intraparenchymal hemorrhage. No significant midline shift. Patient had CT angiography of the head and neck and it's reported as no acute abnormality of the CTA head and neck. Moderate left and mild right proximal ICA stenosis. Small left parietal lobe and intracranial hemorrhage, better depicted on noncontrast CT. Intervention the neurology team (Dr. Vallejo) was contacted at that time. As a result the patient was transferred to [facility]. Per the per the ED physician he notified me that the patient the head all the workup at [facility] then discharged. According to the patient the most of her symptoms resolved except maybe mild difficulty getting her words out. But then yesterday she noticed the symptoms of difficulty getting her words out and the as well as bilateral hand numbness and possibly weakness. She reported to the ED that she had weakness. She cannot tell me for was 1 over the other old she stated was bilateral hand were numb. She said the episode that happened yesterday lasted possibly an hour. For the most part she feels back to normal except maybe some subtle difficulty getting his words out. The patient is currently not on any antiplatelets or anticoagulation. Patient is on Lipitor 10 mg daily. Patient is on amlodipine 5 mg daily, metoprolol 50 mg 1 tablet twice a day, Lasix 20 mg 1 tablet twice a day, lisinopril 10 mg 1 tablet twice a day Patient stated that she was on aspirin prior to the 01/08/2021 stroke symptoms. She cannot tell me if she was on anticoagulation or any other antiplatelets. Regarding her workup at the [facility] she cannot tell me she said that she had CAT scans multiple times. Regardingbe her being placed on the antiepileptic she said yes but could not tell me the name. Workup in our facility on this admission: On presentation the patient's blood pressure was 150/56 heart rate of 65, respiratory of 18, temperature of 98.9 Fahrenheit oral pulse ox of 90% room air. Since the patient's been in our facility on this current visit the blood pressure systolic is been in the 150s and the diastolic is been in the 60s to 70s. CT of the head is reported as no acute process. Stable-appearing left parietal lobe focus seen on the CT 4 days ago. EKG was reported as atrophy and dural based rhythm with prolonged AV conduction. Abnormal EKG. White blood cell is 9.4 which is normal. The serum glucose is 187. Lipid panel as triglyceride of 203, cholesterol 135, LDL of 55 and HDL of 39. Coaguation study: PT of 9.6, INR 0.9 and PTT of 21.7 Coronavirus PCR: Non-detected. I notified the ED physician yesterday that I recommended the blood pressure to be controlled between the 110s and 140s Review of Systems Review of system: The 12 point system was reviewed and apparent positive and negative per HPI. Past Medical History Past Medical History: Coronary Artery Disease (CAD), Diabetes Mellitus, Hypertension Additional Past Medical History / Comment(s): varicose veins, constipation/diarrhea, "slow heart rate", type 2 diabetic History of Any Multi-Drug Resistant Organisms: None Reported Past Surgical History: Cholecystectomy, Pacemaker Additional Past Surgical History / Comment(s): nahid cataracts Past Anesthesia/Blood Transfusion Reactions: No Reported Reaction Type of Cardiac Device: Permanent Pacemaker Device Placement Date:: 2011 Past Psychological History: No Psychological Hx Reported Smoking Status: Never smoker Past Alcohol Use History: None Reported Additional Past Alcohol Use History / Comment(s): Patient is a lifelong nonsmoker, no alcohol use, no illicit drug use, no marijuana use. Patient lives alone in senior apartment. She has been a for 16 years. Past Drug Use History: None Reported - Past Family History Mother Family Medical History: No Reported History Additional Family Medical History / Comment(s): Mother at age 70 from myocardial infarction. Brother(s) Family Medical History: Cancer Additional Family Medical History / Comment(s): Patient had a total of 7 brothers and sisters. One brother still alive at age 92. Patient does not recall medical history and other siblings. Sister(s) Family Medical History: Cancer Father Additional Family Medical History / Comment(s): Father in his 60s from coronary artery disease. Medications and Allergies Home Medications Medication Instructions Recorded Confirmed Type Acetaminophen [Tylenol Extra 500 mg PO BID 03/05/18 01/12/21 History Strength] Atorvastatin [Lipitor] 10 mg PO HS 03/05/18 01/12/21 History Flecainide [Tambocor] 50 mg PO Q12HR 03/05/18 01/12/21 History Linagliptin [Tradjenta] 5 mg PO DAILY 03/05/18 01/12/21 History Metoprolol Tartrate [Lopressor] 50 mg PO BID 03/05/18 01/12/21 History allopurinoL [Zyloprim] 100 mg PO DAILY 03/05/18 01/12/21 History lisinopriL [Zestril] 10 mg PO BID 06/12/20 01/12/21 History Ergocalciferol [Vitamin D2 50,000 unit PO Q14D 10/21/20 01/12/21 History (DRISDOL)] Famotidine 20 mg PO BID 10/21/20 01/12/21 History Ferrous Sulfate [Iron (65 MG 325 mg PO Q48H 10/21/20 01/12/21 History Elemental)] amLODIPine [Norvasc] 5 mg PO DAILY 10/21/20 01/12/21 History Furosemide [Lasix] 20 mg PO BID 01/08/21 01/12/21 History Allergies Allergy/AdvReac Type Severity Reaction Status Date / Time simvastatin [From Zocor] Allergy Unknown Verified 01/12/21 23:44 Physical Examination - Vital Signs Vital Signs: Vital Signs Temp Pulse Pulse Resp BP BP Pulse Ox 01/13/21 08:00 97.8 F 66 18 154/70 98 01/13/21 04:00 97.7 F 57 L 18 156/61 98 01/13/21 01:45 68 18 01/13/21 00:00 68 18 01/12/21 23:58 97.8 F 68 18 158/60 99 01/12/21 20:48 98.9 F 65 18 150/56 98 Intake and Output 01/12/21 01/13/21 01/13/21 22:59 06:59 14:59 Intake Total 10 Balance 10 Intake: IV 10 0.9 10 Other: Voiding Method Toilet # Voids 1 Weight 56.699 kg 57.7 kg GENERAL: The patient is lying in bed and is not in acute distress. CHEST: The heart rate is regular rate rhythm. No murmurs to auscultation. No carotid bruit bilaterally. LUNG: Clear to auscultation bilaterally no wheezing noted throughout. Not labored breathing. ABDOMEN/GI: Bowel sounds present in all 4 quadrants. No tenderness to palpation throughout. NEUROLOGICAL: Higher mental function: The patient is awake, alert, oriented to self, place and time. Patient is following commands. Mild broca aphasia. No neglect. Cranial nerves: The pupils are round, equal and reactive to light and accommodation. Visual melo are full to confrontation throughout. Extraocular movement is intact no nystagmus is noted. Facial sensation is normal to touch throughout. The facial strength is normal throughout. Hearing is mildly to moderately decreased to hand rub. Tongue is midline and moved [id number] without any difficulty. No dysarthria is noted. Shoulder shrug is normal bilaterally. Motor: Gait is deferred. The strength is 5 over 5 throughout. Normal tone and bulk. Cerebellum: Normal finger to nose bilaterally. Sensation: Sensation is normal to touch throughout. Reflexes (right/left): 2+ throughout except ankles are 1+ bilaterally. Plantars are downgoing bilaterally. Results - Laboratory Findings CBC and BMP: 01/13/21 14:56 01/13/21 14:56 Abnormal Lab Findings: Abnormal Labs 01/12/21 01/12/21 01/12/21 20:49 21:09 21:09 APTT 21.7 L BUN 27 H Glucose 187 H POC Glucose (mg/dL) 177 H Triglycerides HDL Cholesterol 01/13/21 01/13/21 01/13/21 00:08 06:25 07:44 APTT BUN Glucose POC Glucose (mg/dL) 142 H 132 H Triglycerides 203 H HDL Cholesterol 39 L Assessment and Plan Assessment: This is an 89-year-old woman with medical history of small left parietal hemorrhage (01/08/21) that presented to the emergency department on 01/12/2021 for complete of speech difficulty (difficulty getting her words out) and bilateral upper extremity weakness but notified ED that she had weakness of arm s. She had work-up at [facility] for small left parietal hemorrhage. Transient episode with difficulty getting her words out (broca aphasia) with bilateral upper extremity numbness and weakness. Seem like seizure due to small left parietal bleed (causing cortical irritability). Cannot rule out TIA Small left parietal hemorrhage (01/08/2021) had work-up at [facility] Uncontrolled hypertension Coronary artery disease History of pacemaker Diabetes mellitus Plan: I started the patient on Keppra 500 mg 1 tablet twice a day. I ordered EEG. The patient is not on any antiplatelets or anticoagulation. Patient is on Lipitor 10 mg daily. Lipitor 10 mg as continued that. Please avoid any antiplatelets or anticoagulation if possible since this bleed is fairly new within the last [address] of the head is reported as no acute process. Stable-appearing left parietal lobe focus seen on the CT 4 days ago. Cannot get MRI of the brain since the patient has a pacemaker. Lipid panel as triglyceride of 203, cholesterol 135, LDL of 55 and HDL of 39. I ordered the carotid duplex. Rest of the stroke workup is not needed since patient had recent workup and [facility]. We will try to obtain records from [facility]. PT and OT are consulted as well as CLASSROOM INSTRUCTIONAL AIDE by the ED team. We'll try to contact the patient's daughter to find out more about the patient's history and what medication she was on. Blood pressure goal is a between 110-140 systolic. We'll defer the management to the primary team. It is safe to use subq heparin for DVT prophylaxis since the bleed is more than 40 hours and has not evolved. The plan is discussed with the patient's nurse. Thank you for the consultation. UPDATE: Per the patient's nurse, around 2:30pm he stated she had an episode of right facial droop and difficulty getting her words out. The episode lasted 10 minutes. A stroke code was activated and she had CT head which was reported as stable left parietal petechial hemorrhage is essentially unchanged. No new areas of hemorrhage are seen. CTA of the head and neck is reported as no significant diameter reduction to account for the patient's symptoms and no significant abnormality seen.. As a result I still think that the patient likely had the seizure because of the cortical mobility over the left parietal region but I cannot rule out this was not a TIA. I ordered Keppra 1 g stat. Patient to continue Keppra 500 mg 1 tablet twice a day. An EEG was not done today since the patient was not her room but she is being treated prophylactically. Tor Fraire MD Neuro-Hospitalist Time with Patient: Greater than 30
[2021-01-13 11:54] LABS: Glucose,Whole Blood 162 mg/dL (75-99)
[2021-01-13] MEDS: levETIRAcetam 500 MG TAB PO SCH ×2 (12:17→20:51)
--- NOTE | 2021-01-13 12:30 | US ---
EXAMINATION TYPE: US carotid duplex BILAT DATE OF EXAM: 01/13/2021 COMPARISON: CT 12/2020 CLINICAL HISTORY: tia. EXAM MEASUREMENTS: RIGHT: Peak Systolic Velocity (PSV) cm/sec ----- Right CCA: 62.7 ----- Right ICA: 82.3 ----- Right ECA: 60.3 ICA/CCA ratio: 1.3 RIGHT: End Diastole cm/sec ----- Right CCA: 9.5 ----- Right ICA: 13.1 ----- Right ECA: 0.0 LEFT: Peak Systolic Velocity (PSV) cm/sec ----- Left CCA: 66.2 ----- Left ICA: 76.7 ----- Left ECA: 55.7 ICA/CCA ratio: 1.2 LEFT: End Diastole cm/sec ----- Left CCA: 6.9 ----- Left ICA: 10.4 ----- Left ECA: 6.2 VERTEBRALS (direction of flow): Right Vertebral: Antegrade Left Vertebral: Antegrade Rhythm: Normal No significant velocity elevations. No elevated velocities. Moderate bilateral plaque at bulbs. IMPRESSION: 1. Some intimal thickening is present with atheromatous plaquing. No significant flow-limiting stenos is by velocities is evident. Criteria for Assigning % of Stenosis / Diameter reduction (Estimation based on the indirect measurements of the internal carotid artery velocities (ICA PSV). 1. Normal (no stenosis)=ICA PSV < 125 cm/s: ratio < 2.0: ICA EDV<40 cm/s. 2. Less than 50% stenosis=ICA PSV < 125 cm/s: ratio < 2.0: ICA EDV<40 cm/s. 3. 50 to 69% stenosis=ICA PSV of 125 to 230 cm/s: ration 2.0 ? 4.0: ICA EDV 40-100 cm/s. 4. Greater than 70% stenosis to near occlusion= ICA PSV > 230 cm/s: ratio > 4.0: ICA EDV > 100 cm/s. 5. Near occlusion= ICA PSV velocities may be low or undetectable: variable ratio and ICA EDV. 6. Total occlusion=unable to detect flow.
[2021-01-13 14:30] LABS: Glucose,Whole Blood 186 mg/dL (75-99)
--- NOTE | 2021-01-13 14:56 | CT ---
EXAMINATION TYPE: CT brain wo con for TPA DATE OF EXAM: 01/13/2021 COMPARISON: 01/12/2021 HISTORY: Neuro deficit, acute, stroke suspected CT DLP: 1052.[address] of the brain was performed. The ventricles, basal cisterns and sulci overlying the cerebral convexities demonstrate mild enlargem ent. Stable left parietal petechial hemorrhage is essentially unchanged. No new areas of hemorrhage are se en. There is decreased attenuation about the periventricular white matter and deep white matter of both c erebral hemispheres, compatible with chronic small vessel ischemia. Differential diagnosis does inclu de demyelination. No mass effects are seen.No midline shift. Osseous calvarium is intact. If symptoms persist consider MRI. IMPRESSION: 1. Stable left parietal petechial hemorrhage is essentially unchanged. No new areas of hemorrhage are seen.
[2021-01-13 15:24] LABS: Basophils % (A) 1 %; Eosinophils # (A) 0.4 k/uL (0-0.7); Eosinophils % (A) 4 %; HCT 41.7 % (34.0-46.0); HGB 13.3 gm/dL (11.4-16.0); Lymphocytes # (A) 2.6 k/uL (1.0-4.8); Lymphocytes % (A) 30 %; MCH 30.7 pg (25.0-35.0); Mean Platelet Volume 8.1; Monocytes # (A) 0.6 k/uL (0-1.0); Monocytes % (A) 7 %; Neutrophils # (A) 4.7 k/uL (1.3-7.7); Neutrophils % (A) 56 %; Platelet Count 274 k/uL (150-450); RBC 4.35 m/uL (3.80-5.40); RDW 15.3 % (11.5-15.5); WBC 8.5 k/uL (3.8-10.6)
[2021-01-13 15:33] LABS: Albumin 4.2 g/dL (3.5-5.0); Calcium 10.2 mg/dL (8.4-10.2); Potassium 4.4 mmol/L (3.5-5.1); Total Bilirubin 0.3 mg/dL (0.2-1.3)
--- NOTE | 2021-01-13 15:57 | CT ---
EXAMINATION TYPE: CT angio head neck DATE OF EXAM: 01/13/2021 COMPARISON: None HISTORY: code stroke CT DLP: 351.1 mGycm CONTRAST: Performed with IV Contrast, patient injected with 65 mL of Isovue 370. Combination Contrast CTA cervical carotids and [place] of [place] CTA cervical carotids with 3-D recons truction Contrast CTA of the cervical carotids was performed 3-D reconstruction imaging obtained at a separate workstation. Right carotid system: Mild plaque is seen of the right common carotid artery. There is mild plaque a lso noted at the carotid bulb and proximal ICA. No significant diameter reduction. ECA is patent. Right vertebral artery appears unremarkable. Left carotid system: Mild plaque is seen of the left common carotid artery. There is moderate plaque also noted at the carotid bulb and proximal ICA. 50% diameter reduction estimated. ECA is patent. Left vertebral artery appears unremarkable. IMPRESSION: 1. No significant diameter reduction to account for the patient's symptoms. CTA [place] of [place] with 3-D reconstruction Contrast CTA of the [place] of [place] was performed 3-D reconstruction imaging obtained at a separate workstation. Vertebrobasilar system as well as intracranial portions of the internal carotid arteries and their ma sandra tributaries are patent. I do not see evidence for sizable aneurysm or vascular malformation. Pl ease note MRI provides greater sensitivity and specificity. Visualized brain appears grossly unremar kable. IMPRESSION: 1. No significant abnormality.
--- NOTE | 2021-01-13 16:27 | P.HPIM ---
History of Present Illness H&P Date: 01/13/21 Chief Complaint: Weakness in arms, difficulty with speech This is a pleasant 89-year-old patient of Dr. 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 Mark for which his her last visit was over a year ago was last admitted in September 2020 for chest pain last cardiac cath was in 2017, did not require any stents at that time came to the ER on 01/08 but complains of slurring of speech and left-sided weakness and was found to have a small left parietal bleed on CAT scan.CT angiogram of the head and neck reported no acute abnormality of the CTA. Patient is a moderate left and mild right proximal ICA stenosis. Patient was transferred to [facility] during the last ER visit. She had her workup done in [facility] and was discharged after 4 days. Patient is doing well until yesterday evening when she started having slurring of speech associated with numbness and tingling involving bilateral upper extremities. Repeat CAT scan was done in the ER they suggested stable left parietal petechial hemorrhage but appeared unchanged with no new area of new hemorrhage seen. CTA showed 50% reduction on the left proximal ICA and carotid bulb mild plaque deposition in the right common carotid and proximal ICA. Dr. Rubio, ER physician spoke to the neurology and intervention neurology team Dr. Vallejo who decided to keep the patient here and not be transferred to [facility]. Evaluation of the vitals in the ER, patient had above 97.7 pulse 57 respiratory rate 18 blood pressure 156/61 and oxygen saturation 98% room air. Her labs from yesterday suggest to WBC 9.4 hemoglobin 13.6, PT 19.6 PTT 21.7 BUN 27 creatinine 0.97 glucose ranging from 1:30 to 187 continue patient on amlodipine, lisinopril and metoprolol. Increase Norvasc to 10 mg by mouth daily Review of Systems Constitutional: Denies chills, Denies fever, Denies lethargy, Denies malaise, Denies poor appetite, Denies weakness, Denies weight loss Eyes: denies decreased vision, denies diplopia, denies discharge, denies pain Ears: deny: decreased hearing Ears, nose, mouth and throat: Denies dental pain, Denies headache, Denies nasal discharge, Denies nose pain Cardiovascular: Denies chest pain, Denies decreased exercise tolerance, Denies edema, Denies high blood pressure, Denies irregular heart beat, Denies palpitations, Denies paroxysmal nocturnal dyspnea, Denies rapid heart beat, Denies shortness of breath Respiratory: Denies congestion, Denies cough, Denies cough with sputum, Denies dyspnea, Denies home oxygen, Denies wheezing Gastrointestinal: Denies abdominal pain, Denies change in bowel habits, Denies coffee ground emesis, Denies early satiety, Denies excessive gas, Denies heartburn, Denies hematemesis, Denies hematochezia, Denies loss of appetite, Denies nausea, Denies vomiting Genitourinary: Denies dysuria, Denies flank pain, Denies kidney stones, Denies menorrhagia, Denies urgency, Denies urinary frequency Musculoskeletal: Denies gait dysfunction, Denies limitation of motion, Denies morning stiffness, Denies muscle cramps Integumentary: Denies rash, Denies wounds, Denies brittle nails, Denies change in hair/nails, Denies darkening of skin Neurological: Endorses balance difficulties, endorses change in speech, Denies d ouble vision, endorses gait dysfunction, Denies loss of vision, Denies motor disturbance, endorses numbness of the left, Denies paralysis, Denies pare sthesias, Denies seizures Psychiatric: Denies anxiety, Denies depression Endocrine: Denies excessive sweating, Denies excessive thirst, Denies high blood sugars, Denies palpitations Hematologic/Lymphatic: Denies easy bruising, Denies lymphadenopathy Past Medical History Past Medical History: Coronary Artery Disease (CAD), Diabetes Mellitus, Hypertension Additional Past Medical History / Comment(s): varicose veins, constipation/diar glenn, "slow heart rate", type 2 diabetic History of Any Multi-Drug Resistant Organisms: None Reported Past Surgical History: Cholecystectomy, Pacemaker Additional Past Surgical History / Comment(s): nahid cataracts Past Anesthesia/Blood Transfusion Reactions: No Reported Reaction Type of Cardiac Device: Permanent Pacemaker Device Placement Date:: 2011 Past Psychological History: No Psychological Hx Reported Smoking Status: Never smoker Past Alcohol Use History: None Reported Additional Past Alcohol Use History / Comment(s): Patient is a lifelong nonsmoker, no alcohol use, no illicit drug use, no marijuana use. Patient lives alone in senior apartment. She has been a for 16 years. Past Drug Use History: None Reported - Past Family History Mother Family Medical History: No Reported History Additional Family Medical History / Comment(s): Mother at age 70 from myocardial infarction. Brother(s) Family Medical History: Cancer Additional Family Medical History / Comment(s): Patient had a total of 7 brothers and sisters. One brother still alive at age 92. Patient does not recall medical history and other siblings. Sister(s) Family Medical History: Cancer Father Additional Family Medical History / Comment(s): Father in his 60s from coronary artery disease. Medications and Allergies Home Medications Medication Instructions Recorded Confirmed Type Acetaminophen [Tylenol Extra 500 mg PO BID 03/05/18 01/12/21 History Strength] Atorvastatin [Lipitor] 10 mg PO HS 03/05/18 01/12/21 History Flecainide [Tambocor] 50 mg PO Q12HR 03/05/18 01/12/21 History Linagliptin [Tradjenta] 5 mg PO DAILY 03/05/18 01/12/21 History Metoprolol Tartrate [Lopressor] 50 mg PO BID 03/05/18 01/12/21 History allopurinoL [Zyloprim] 100 mg PO DAILY 03/05/18 01/12/21 History lisinopriL [Zestril] 10 mg PO BID 06/12/20 01/12/21 History Ergocalciferol [Vitamin D2 50,000 unit PO Q14D 10/21/20 01/12/21 History (DRISDOL)] Famotidine 20 mg PO BID 10/21/20 01/12/21 History Ferrous Sulfate [Iron (65 MG 325 mg PO Q48H 10/21/20 01/12/21 History Elemental)] amLODIPine [Norvasc] 5 mg PO DAILY 10/21/20 01/12/21 History Furosemide [Lasix] 20 mg PO BID 01/08/21 01/12/21 History Allergies Allergy/AdvReac Type Severity Reaction Status Date / Time simvastatin [From Zocor] Allergy Unknown Verified 01/12/21 23:44 Physical Exam Vitals: Vital Signs Temp Pulse Pulse Resp BP BP Pulse Ox 01/13/21 08:00 97.8 F 66 18 154/70 98 01/13/21 04:00 97.7 F 57 L 18 156/61 98 01/13/21 01:45 68 18 01/13/21 00:00 68 18 01/12/21 23:58 97.8 F 68 18 158/60 99 01/12/21 20:48 98.9 F 65 18 150/56 98 Intake and Output 01/12/21 01/13/21 01/13/21 22:59 06:59 14:59 Intake Total 10 Balance 10 Intake: IV 10 0.9 10 Other: Voiding Method Toilet # Voids 1 Weight 56.699 kg 57.7 kg - Constitutional General appearance: cooperative, no acute distress, thin oriented - EENT Eyes: anicteric sclerae, PERRLA, normal appearance ENT: hearing grossly normal - Neck Neck: no lymphadenopathy, normal ROM, no other, no rigidity, no stridor, no thyromegaly - Respiratory Respiratory: bilateral: CTA, negative: diminished, dullness, rales, rhonchi - Cardiovascular Rhythm: regular Heart sounds: normal: S1, S2 Abnormal Heart Sounds: no systolic murmur, no diastolic murmur, no rub, no S3 Gallop, no S4 Gallop, no click, no other - Gastrointestinal General gastrointestinal: normal bowel sounds, soft nontender - Integumentary Integumentary: no rash - Neurologic Neurologic: CNII-XII intact, slurred speech with aphasia - Musculoskeletal Musculoskeletal: Ataxic gait with weakness involving the left lower extremity, strength decreased on the left mild sensory deficit involving the fingers bilateral upper extremities - Psychiatric Psychiatric: A&O x's 3, appropriate affect Results CBC & Chem 7: 01/13/21 14:56 01/13/21 14:56 Labs: Abnormal Lab Results - Last 24 Hours (Table) 01/12/21 01/12/21 01/12/21 Range/Units 20:49 21:09 21:09 APTT 21.7 L (22.0-30.0) sec BUN 27 H (7-17) mg/dL Glucose 187 H (74-99) mg/dL POC Glucose (mg/dL) 177 H (75-99) mg/dL Triglycerides (<150) mg/dL HDL Cholesterol (40-60) mg/dL 01/13/21 01/13/21 01/13/21 Range/Units 00:08 06:25 07:44 APTT (22.0-30.0) sec BUN (7-17) mg/dL Glucose (74-99) mg/dL POC Glucose (mg/dL) 142 H 132 H (75-99) mg/dL Triglycerides 203 H (<150) mg/dL HDL Cholesterol 39 L (40-60) mg/dL Thrombosis Risk Factor Assmnt - DVT/VTE Prophylaxis DVT/VTE Prophylaxis: Pharmacologic Prophylaxis ordered - Choose All That Apply Any of the Below Risk Factors Present?: No Other Risk Factors: Yes Each Risk Factor Represents 3 Points: Age 75 years or older Each Risk Factor Represents 5 Points: Stroke (< 1 month) Thrombosis Risk Factor Assessment Total Risk Factor Score: 8 Thrombosis Risk Factor Assessment Level: High Risk Assessment and Plan Plan: #1 acute left parietal hemorrhage no progression on the computed tomography scan noted since 01/08. Neuro checks 2-[address] head with no progression of the left parietal intraparenchymal hemorrhage. Avoid anticoagulation. #2 acute TIA with Broca aphasia, possible seizure started on Keppra 500 by mouth every 12 for neurology. EEG ordered carotid Doppler ordered. Lipid panel with LDL 55 HDL 39. Speech therapy PTOT consult. #3 uncontrolled hypertension and hypertensive cardiovascular disease continue amlodipine, first night, lisinopril and metoprolol. Amlodipine increased to 10 mg daily: Systolic blood pressure less than 140 #4 coronary artery disease hold aspirin and continue atorvastatin, metoprolol #5 history of pacemaker likely sick sinus syndrome continue flecainide 50 mg by mouth every 12 #6 type 2 diabetes, uncontrolled continue Tradjenta 5 mg by mouth daily. Insuli n sliding scale #7 severe aortic insufficiency with moderate aortic stenosis, stable #8 hyperlipidemia on atorvastatin 40 mg daily #9 chronic diastolic heart failure continue Lasix 20 by mouth twice a day. INR monitoring daily weights #10 osteoporosis stable #11 DVT prophylaxis heparin every 12 #12 GI prophylaxis Pepcid 20 mg twice a day #13 gout continue allopurinol 100 mg daily #13 CODE STATUS #14 disposition patient may need to be in the hospital for atleast 2 nights for stabalization
[2021-01-13 16:46] LABS: Glucose,Whole Blood 147 mg/dL (75-99)
[2021-01-13] MEDS: INSULIN ASPART (NovoLOG) 100 UNIT/ML VIAL SQ SCH ×2 (17:07→20:52)
[2021-01-13] MEDS ORDERED: levETIRAcetam IV 1,000 MG in SALINE 1 100ML.BAG IVPB STA (17:45)
[2021-01-13 20:31] LABS: Glucose,Whole Blood 178 mg/dL (75-99)
[2021-01-13] MEDS: ATORVASTATIN 10 MG TAB PO SCH (20:51)
[2021-01-13] MEDS: HEPARIN SODIUM,PORCINE 5,000 UNIT/ML 1 ML VIAL SQ SCH (20:52)
[2021-01-14 06:40] LABS: Glucose,Whole Blood 143 mg/dL (75-99)
[2021-01-14 06:51] LABS: Basophils # (A) 0.1 k/uL (0-0.2); Basophils % (A) 1 %; Eosinophils # (A) 0.4 k/uL (0-0.7); Eosinophils % (A) 7 %; HCT 38.6 % (34.0-46.0); HGB 12.7 gm/dL (11.4-16.0); Lymphocytes % (A) 32 %; MCH 31.4 pg (25.0-35.0); MCHC 32.8 g/dL (31.0-37.0); MCV 95.6 fL (80.0-100.0); Monocytes # (A) 0.4 k/uL (0-1.0); Monocytes % (A) 7 %; Neutrophils # (A) 3.2 k/uL (1.3-7.7); Neutrophils % (A) 51 %; Platelet Count 226 k/uL (150-450); RBC 4.04 m/uL (3.80-5.40); RDW 14.9 % (11.5-15.5); WBC 6.2 k/uL (3.8-10.6)
[2021-01-14] MEDS: INSULIN ASPART (NovoLOG) 100 UNIT/ML VIAL SQ SCH ×4 (06:51→21:41)
[2021-01-14] MEDS: SODIUM CHLORIDE 0.9% 1,000 ML IV SCH (07:01)
[2021-01-14 07:05] LABS: Albumin 3.9 g/dL (3.5-5.0); Calcium 9.9 mg/dL (8.4-10.2); Potassium 4.5 mmol/L (3.5-5.1); Total Bilirubin 0.4 mg/dL (0.2-1.3); Total Protein 6.4 g/dL (6.3-8.2)
[2021-01-14] MEDS: lisinopriL 10 MG TAB PO SCH ×2 (09:25→21:39)
[2021-01-14] MEDS: METOPROLOL TARTRATE 50 MG TAB PO SCH ×2 (09:25→21:39)
[2021-01-14] MEDS: HEPARIN SODIUM,PORCINE 5,000 UNIT/ML 1 ML VIAL SQ SCH ×2 (09:25→21:41)
[2021-01-14] MEDS: allopurinoL 100 MG TAB PO SCH (09:25)
[2021-01-14] MEDS: amLODIPine 10 MG TAB PO SCH (09:25)
[2021-01-14] MEDS: FAMOTIDINE 20 MG TAB PO SCH ×2 (09:25→21:39)
[2021-01-14] MEDS: FUROSEMIDE 20 MG TAB PO SCH ×2 (09:25→21:40)
[2021-01-14] MEDS: levETIRAcetam 500 MG TAB PO SCH ×2 (09:25→21:39)
[2021-01-14] MEDS: LINAGLIPTIN 5 MG TABLET PO SCH (09:25)
[2021-01-14] MEDS: ACETAMINOPHEN TAB 500 MG TAB PO SCH ×2 (09:26→21:40)
[2021-01-14] MEDS: FLECAINIDE 50 MG TAB PO SCH ×2 (09:26→21:39)
[2021-01-14 12:26] LABS: Glucose,Whole Blood 182 mg/dL (75-99)
--- NOTE | 2021-01-14 13:36 | P.PN ---
Subjective Progress Note Date: 01/14/21 Principal diagnosis: Hemorrhagic stroke, severe aphasia, weakness in the right arm, CAD, diabetes This is a pleasant 89-year-old patient of Dr. 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 Mark for which his her last visit was over a year ago was last admitted in September 2020 for chest pain last cardiac cath was in 2017, did not require any stents at that time came to the ER on 01/08 but complains of slurring of speech and left-sided weakness and was found to have a small left parietal bleed on CAT scan.CT angiogram of the head and neck reported no acute abnormality of the CTA. Patient is a moderate left and mild right proximal ICA stenosis. Patient was transferred to [facility] during the last ER visit. She had her workup done in [facility] and was discharged after 4 days. Patient is doing well until yesterday evening when she started having slurring of speech associated with numbness and tingling involving bilateral upper extremities. Repeat CAT scan was done in the ER they suggested stable left parietal petechial hemorrhage but appeared unchanged with no new area of new hemorrhage seen. CTA showed 50% reduction on the left proximal ICA and carotid bulb mild plaque deposition in the right common carotid and proximal ICA. Dr. Rubio, ER physician spoke to the neurology and intervention neurology team Dr. Vallejo who decided to keep the patient here and not be transferred to [facility]. Evaluation of the vitals in the ER, patient had above 97.7 pulse 57 respiratory rate 18 blood pressure 156/61 and oxygen saturation 98% room air. Her labs from yesterday suggest to WBC 9.4 hemoglobin 13.6, PT 19.6 PTT 21.7 BUN 27 creatinine 0.97 glucose ranging from 1:30 to 187 continue patient on amlodipine, lisinopril and metoprolol. Increase Norvasc to 10 mg by mouth daily 01/14: Patient continued to have significant expression aphasia, patient was seen urology agree with the current plan, EEG was performed today to exclude the possibility of seizure beside hemorrhagic stroke on thrombus. Otherwise patient is hemodynamically stable mobility still limited at this point patient to continue PTOT probably will require rehab for the next few weeks. Objective - Vital Signs Vital signs: Vital Signs Temp 97.6 F 01/14/21 12:00 Pulse 65 01/14/21 12:00 Resp 16 01/14/21 12:00 BP 119/51 01/14/21 12:00 Pulse Ox 97 01/14/21 12:00 Intake & Output 01/13/21 01/14/21 01/14/21 18:59 06:59 18:59 Intake Total 300 240 Balance 300 240 Weight 59.8 kg Intake: Oral 300 240 Other: Voiding Method Toilet Toilet # Voids 1 - Exam Review of Systems Constitutional: Denies chills, Denies fever, Denies lethargy, Denies malaise, Denies poor appetite, Denies weakness, Denies weight loss Eyes: denies decreased vision, denies diplopia, denies discharge, denies pain Ears: deny: decreased hearing Ears, nose, mouth and throat: Denies dental pain, Denies headache, Denies nasal discharge, Denies nose pain Cardiovascular: Denies chest pain, Denies decreased exercise tolerance, Denies edema, Denies high blood pressure, Denies irregular heart beat, Denies palpitations, Denies paroxysmal nocturnal dyspnea, Denies rapid heart beat, Denies shortness of breath Respiratory: Denies congestion, Denies cough, Denies cough with sputum, Denies dyspnea, Denies home oxygen, Denies wheezing Gastrointestinal: Denies abdominal pain, Denies change in bowel habits, Denies coffee ground emesis, Denies early satiety, Denies excessive gas, Denies heartburn, Denies hematemesis, Denies hematochezia, Denies loss of appetite, Denies nausea, Denies vomiting Genitourinary: Denies dysuria, Denies flank pain, Denies kidney stones, Denies menorrhagia, Denies urgency, Denies urinary frequency Musculoskeletal: Denies gait dysfunction, Denies limitation of motion, Denies morning stiffness, Denies muscle cramps Integumentary: Denies rash, Denies wounds, Denies brittle nails, Denies change i n hair/nails, Denies darkening of skin Neurological: Endorses balance difficulties, endorses change in speech, Denies double vision, endorses gait dysfunction, Denies loss of vision, Denies motor disturbance, endorses numbness of the left, Denies paralysis, Denies paresthesias, Denies seizures Psychiatric: Denies anxiety, Denies depression Endocrine: Denies excessive sweating, Denies excessive thirst, Denies high blood sugars, Denies palpitations Hematologic/Lymphatic: Denies easy bruising, Denies lymphadenopathy Physical examinations: General Appearance: Alert, cooperative, no distress, appears stated age. Neck HEENT: Supple, no lymphadenopathy, no thyroid enlargement, no carotid bruits. Lungs: Clear to auscultation without crackles or wheezes no rhonchi, no deformi ty. Chest Wall: Chest wall normal expansion with deep inspiration no tenderness and no deformity was found on exam, no costochondral pain or discomfort. Heart: Regular rate and rhythm, S1, S2 normal, no murmur, rub or gallop. Back: Symmetric, no curvature, ROM normal, no CVA tenderness. Abdomen: Soft, non-tender, bowel sounds active all four quadrants, no masses, no organomegaly. Extremities: Extremities normal, atraumatic, no cyanosis or edema. Pulses: 2+ and symmetric. Skin: Skin color, texture, tugor normal, no rashes or lesions. Neurologic: Alert oriented with slight confusion cranial nerves II through XII has slight effecting nerve VII on the right side intact, significant weakness in the right side severe abnormal balance, severe expression aphasia. - Labs CBC & Chem 7: 01/14/21 06:33 01/14/21 06:33 Labs: Abnormal Lab Results - Last 24 Hours (Table) 01/13/21 01/13/21 01/13/21 Range/Units 14:27 14:56 16:44 BUN 26 H (7-17) mg/dL Glucose 154 H (74-99) mg/dL POC Glucose (mg/dL) 186 H 147 H (75-99) mg/dL 01/13/21 01/14/21 01/14/21 Range/Units 20:29 06:15 06:33 BUN 26 H (7-17) mg/dL Glucose 140 H (74-99) mg/dL POC Glucose (mg/dL) 178 H 143 H (75-99) mg/dL 01/14/21 Range/Units 12:25 BUN (7-17) mg/dL Glucose (74-99) mg/dL POC Glucose (mg/dL) 182 H (75-99) mg/dL Assessment and Plan Assessment: #1 acute left parietal hemorrhage no progression on the computed tomography scan noted since 01/08. Neuro checks 2-[address] head with no progression of the left parietal intraparenchymal hemorrhage. Avoid anticoagulation. #2 acute CVA with Broca aphasia, possible seizure started on Keppra 500 by mouth every 12 for neurology. EEG ordered carotid Doppler ordered. Lipid panel with LDL 55 HDL 39. Speech therapy PTOT consult. EEG is pending's morning #3 uncontrolled hypertension and hypertensive cardiovascular disease continue amlodipine, first night, lisinopril and metoprolol. Amlodipine increased to 10 mg daily: Systolic blood pressure less than 140 #4 coronary artery disease hold aspirin and continue atorvastatin, metoprolol #5 history of pacemaker likely sick sinus syndrome continue flecainide 50 mg by mouth every 12 #6 type 2 diabetes, uncontrolled continue Tradjenta 5 mg by mouth daily. Insulin sliding scale #7 severe aortic insufficiency with moderate aortic stenosis, stable #8 hyperlipidemia on atorvastatin 40 mg daily #9 chronic diastolic heart failure continue Lasix 20 by mouth twice a day. INR monitoring daily weights #10 osteoporosis stable #11 DVT prophylaxis heparin every 12 #12 GI prophylaxis Pepcid 20 mg twice a day #13 gout continue allopurinol 100 mg daily #Discharge planning: Patient will require probably PTOT for the next 2-3 weeks which can benefit from either inpatient rehab subacute rehab something to be planned for Saturday this week.
--- NOTE | 2021-01-14 13:55 | P.PN ---
Subjective Progress Note Date: 01/14/21 She was seen at bedside and she stated that she's feeling much better today compared to yesterday. She has not had any further episodes of the difficulty getting her words out or slurring her speech. Denies of any weakness, numbness. Patient's blood pressure has been ranging between the 110s to 140 systolic and diastolic between 50s to 70s. Objective - Vital Signs Vital signs: Vital Signs Temp 97.6 F 01/14/21 12:00 Pulse 65 01/14/21 12:00 Resp 16 01/14/21 12:00 BP 119/51 01/14/21 12:00 Pulse Ox 97 01/14/21 12:00 Intake & Output 01/13/21 01/14/21 01/14/21 18:59 06:59 18:59 Intake Total 300 480 Balance 300 480 Weight 59.8 kg Intake: Oral 300 480 Other: Voiding Method Toilet Toilet # Voids 1 - Exam GENERAL: The patient is lying in bed and is not in acute distress. NEUROLOGICAL: Higher mental function: The patient is awake, alert, oriented to self, place and time. Patient is following commands. Mild broca aphasia. No neglect. Cranial nerves: The pupils are round, equal and reactive to light and accommodation. Visual melo are full to confrontation throughout. Extraocular movement is intact no nystagmus is noted. Facial sensation is normal to touch throughout. The facial strength is normal throughout. Hearing is mildly to moderately decreased to hand rub. Tongue is midline and moved [id number] without any difficulty. No dysarthria is noted. Shoulder shrug is normal bilaterally. Motor: Gait is deferred. The strength is 5 over 5 throughout. Normal tone and bulk. Cerebellum: Normal finger to nose bilaterally. Sensation: Sensation is normal to touch throughout. Reflexes (right/left): 2+ throughout except ankles are 1+ bilaterally. Plantars are downgoing bilaterally. - Labs CBC & Chem 7: 01/14/21 06:33 01/14/21 06:33 Labs: Abnormal Lab Results - Last 24 Hours (Table) 01/13/21 01/13/21 01/13/21 Range/Units 14:27 14:56 16:44 BUN 26 H (7-17) mg/dL Glucose 154 H (74-99) mg/dL POC Glucose (mg/dL) 186 H 147 H (75-99) mg/dL 01/13/21 01/14/21 01/14/21 Range/Units 20:29 06:15 06:33 BUN 26 H (7-17) mg/dL Glucose 140 H (74-99) mg/dL POC Glucose (mg/dL) 178 H 143 H (75-99) mg/dL 01/14/21 Range/Units 12:25 BUN (7-17) mg/dL Glucose (74-99) mg/dL POC Glucose (mg/dL) 182 H (75-99) mg/dL Assessment and Plan Assessment: This is an 89-year-old woman with medical history of small left parietal hemorrhage (01/08/21) that presented to the emergency department on 01/12/2021 for complete of speech difficulty (difficulty getting her words out) and bilateral upper extremity weakness but notified ED that she had weakness of arms. She had work-up at [facility] for small left parietal hemorrhage. Transient episode with difficulty getting her words out (broca aphasia) with bilateral upper extremity numbness and weakness. Seem like seizure due to small left parietal bleed (causing cortical irritability). Cannot rule out TIA Small left parietal hemorrhage (01/08/2021) had work-up at [facility] Uncontrolled hypertension---improved Coronary artery disease History of pacemaker Diabetes mellitus Plan: Continue Keppra 500 mg 1 tablet twice a day. EEG: pending. The patient is not on any antiplatelets or anticoagulation. Patient is on Lipitor 10 mg daily. Lipitor 10 mg as continued that. Please avoid any antiplatelets or anticoagulation if possible since this bleed is fairly new within the last [address] of the head is reported as no acute process. Stable-appearing left parietal lobe focus seen on the CT 4 days ago. She had repeat CT head because repeat episode: CT head which was reported as stable left parietal petechial hemorrhage is essentially unchanged. No new areas of hemorrhage are seen. CTA of the head and neck is reported as no significant diameter reduction to account for the patient's symptoms and no significant abnormality seen.. Cannot get MRI of the brain since the patient has a pacemaker. Lipid panel as triglyceride of 203, cholesterol 135, LDL of 55 and HDL of 39. carotid duplex.: Some intimal thickening is present with Dr. Malik plaquing. No significant flow limiting stenosis by velocities is evident. Rest of the stroke workup is not needed since patient had recent workup and [facility]. We will try to obtain records from [facility]. PT and OT are consulted as well as HONING MACHINE SET UP OPERATOR TOOL by the ED team. We'll try to contact the patient's daughter to find out more about the patient's history and what medication she was on. Blood pressure goal is a between 110-140 systolic. We'll defer the management to the primary team. It is safe to use subq heparin for DVT prophylaxis since the bleed is more than 40 hours and has not evolved. The plan is discussed with the patient and patient's nurse. Tor Fraire MD Neuro-Hospitalist Time with Patient: Less than 30
[2021-01-14 17:10] LABS: Glucose,Whole Blood 114 mg/dL (75-99)
--- NOTE | 2021-01-14 17:16 | EEG ---
ELECTROENCEPHALOGRAM REPORT DATE OF SERVICE: 01/14/2021. CLINICAL HISTORY: This is an 89-year-old woman with focal left parietal hemorrhage that is having recurrent episodes of difficulty getting her words out. This video EEG is obtained to evaluate for seizure and epileptiform activity. RELEVANT MEDICATION: Patient is on Keppra. DESCRIPTION: Wakefulness is only obtained. During wakefulness, there is a posterior dominant rhythm of low to moderate voltage, reactive, well modulated, of 6-7 hertz activity. There is no physiological stage 2 sleep seen. There are occasional runs of moderate to high voltage of 1.5Hz of generalized rhythmic delta activity with frontal predominance. There is no focal slowing. INTERICTAL AND ICTAL: None. ACTIVATION PROCEDURES: Photic stimulation is performed and did not evoke a posterior driving response. There is no abnormality seen during the photic stimulation. Hyperventilation is not performed. CLINICAL INTERPRETATION: This is an abnormal routine EEG. The background slowing is suggestive of mild encephalopathy. There are no focal slowing, epileptiform discharge or seizure on the EEG. Clinical correlation is recommended. MMGINA / YUEN: [id number] / MTDD
[2021-01-14 20:50] LABS: Glucose,Whole Blood 169 mg/dL (75-99)
[2021-01-14] MEDS: ATORVASTATIN 10 MG TAB PO SCH (21:41)
[2021-01-15] MEDS: SODIUM CHLORIDE 0.9% 1,000 ML IV SCH (03:16)
[2021-01-15 06:29] LABS: Glucose,Whole Blood 129 mg/dL (75-99)
[2021-01-15] MEDS: INSULIN ASPART (NovoLOG) 100 UNIT/ML VIAL SQ SCH ×4 (06:33→20:34)
[2021-01-15] MEDS: levETIRAcetam 500 MG TAB PO SCH ×2 (08:24→20:34)
[2021-01-15] MEDS: FAMOTIDINE 20 MG TAB PO SCH ×2 (08:25→20:34)
[2021-01-15] MEDS: lisinopriL 10 MG TAB PO SCH ×2 (08:25→20:33)
[2021-01-15] MEDS: allopurinoL 100 MG TAB PO SCH (08:25)
[2021-01-15] MEDS: amLODIPine 10 MG TAB PO SCH (08:25)
[2021-01-15] MEDS: LINAGLIPTIN 5 MG TABLET PO SCH (08:25)
[2021-01-15] MEDS: FERROUS SULFATE 325 MG TAB PO SCH (08:25)
[2021-01-15] MEDS: ACETAMINOPHEN TAB 500 MG TAB PO SCH ×2 (08:25→20:33)
[2021-01-15] MEDS: FUROSEMIDE 20 MG TAB PO SCH ×2 (08:25→20:33)
[2021-01-15] MEDS: FLECAINIDE 50 MG TAB PO SCH ×2 (08:25→20:34)
[2021-01-15] MEDS: METOPROLOL TARTRATE 50 MG TAB PO SCH ×2 (08:28→20:34)
[2021-01-15] MEDS: HEPARIN SODIUM,PORCINE 5,000 UNIT/ML 1 ML VIAL SQ SCH ×2 (08:28→20:34)
--- NOTE | 2021-01-15 11:19 | P.PN ---
Subjective Progress Note Date: 01/15/21 Principal diagnosis: Hemorrhagic stroke, severe aphasia, weakness in the right arm, CAD, diabetes This is a pleasant 89-year-old patient of Dr. Walker with known history of CAD hypertension pacemaker device, diabetes mellitus type 2, systolic dysfunction, moderate aortic stenosis and moderate aortic regurgitation, hypertension follows with a expansion joint finisher [facility] Dr. Mark for which his her last visit was over a year ago was last admitted in September 2020 for chest pain last cardiac cath was in 2017, did not require any stents at that time came to the ER on 01/08 but complains of slurring of speech and left-sided weakness and was found to have a small left parietal bleed on CAT scan.CT angiogram of the head and neck reported no acute abnormality of the CTA. Patient is a moderate left and mild right proximal ICA stenosis. Patient was transferred to [facility] during the last ER visit. She had her workup done in [facility] and was discharged after 4 days. Patient is doing well until yesterday evening when she started having slurring of speech associated with numbness and tingling involving bilateral upper extremities. Repeat CAT scan was done in the ER they suggested stable left parietal petechial hemorrhage but appeared unchanged with no new area of new hemorrhage seen. CTA showed 50% reduction on the left proximal ICA and carotid bulb mild plaque deposition in the right common carotid and proximal ICA. Dr. Rubio, ER physician spoke to the neurology and intervention neurology team Dr. Vallejo who decided to keep the patient here and not be transferred to [facility]. Evaluation of the vitals in the ER, patient had above 97.7 pulse 57 respiratory rate 18 blood pressure 156/61 and oxygen saturation 98% room air. Her labs from yesterday suggest to WBC 9.4 hemoglobin 13.6, PT 19.6 PTT 21.7 BUN 27 creatinine 0.97 glucose ranging from 1:30 to 187 continue patient on amlodipine, lisinopril and metoprolol. Increase Norvasc to 10 mg by mouth daily 01/14: Patient continued to have significant expression aphasia, patient was seen Neurology agree with the current plan, EEG was performed today to exclude the possibility of seizure beside hemorrhagic stroke on thrombus. Otherwise patient is hemodynamically stable mobility still limited at this point patient to continue PTOT probably will require rehab for the next few weeks. 01/15: Patient is doing much better today, she had an episode yesterday was claim on seizure, her Keppra was increased up to 750 mg twice a day. Apparently Dr. Fraire and urology talk with the family about the plan for going home with physical therapy after this adjustment done most likely by tomorrow. Patient otherwise is doing well able to swallow appetite is good and she is doing slightly better with physical therapy. Objective - Vital Signs Vital signs: Vital Signs Temp 97.7 F 01/15/21 08:25 Pulse 63 01/15/21 08:25 Resp 16 01/15/21 08:25 BP 150/59 01/15/21 08:25 Pulse Ox 99 01/15/21 08:25 Intake & Output 01/14/21 01/15/21 01/15/21 18:59 06:59 18:59 Intake Total 720 480 Output Total 553 Balance 167 480 Weight 58.1 kg Intake: Oral 720 480 Output: Urine 552 Stool 1 Other: Voiding Method Toilet Toilet Toilet # Voids 1 - Exam Review of Systems Constitutional: Denies chills, Denies fever, Denies lethargy, Denies malaise, Denies poor appetite, Denies weakness, Denies weight loss Eyes: denies decreased vision, denies diplopia, denies discharge, denies pain Ears: deny: decreased hearing Ears, nose, mouth and throat: Denies dental pain, Denies headache, Denies nasal discharge, Denies nose pain Cardiovascular: Denies chest pain, Denies decreased exercise tolerance, Denies edema, Denies high blood pressure, Denies irregular heart beat, Denies palpitations, Denies paroxysmal nocturnal dyspnea, Denies rapid heart beat, Denies shortness of breath Respiratory: Denies congestion, Denies cough, Denies cough with sputum, Denies dyspnea, Denies home oxygen, Denies wheezing Gastrointestinal: Denies abdominal pain, Denies change in bowel habits, Denies coffee ground emesis, Denies early satiety, Denies excessive gas, Denies heartburn, Denies hematemesis, Denies hematochezia, Denies loss of appetite, Denies nausea, Denies vomiting Genitourinary: Denies dysuria, Denies flank pain, Denies kidney stones, Denies menorrhagia, Denies urgency, Denies urinary frequency Musculoskeletal: Denies gait dysfunction, Denies limitation of motion, Denies morning stiffness, Denies muscle cramps Integumentary: Denies rash, Denies wounds, Denies brittle nails, Denies change in hair/nails, Denies darkening of skin Neurological: Endorses balance difficulties, endorses change in speech, Denies double vision, endorses gait dysfunction, Denies loss of vision, Denies motor disturbance, endorses numbness of the left, Denies paralysis, Denies paresthesias, Denies seizures Psychiatric: Denies anxiety, Denies depression Endocrine: Denies excessive sweating, Denies excessive thirst, Denies high blood sugars, Denies palpitations Hematologic/Lymphatic: Denies easy bruising, Denies lymphadenopathy Physical examinations: General Appearance: Alert, cooperative, no distress, appears stated age. Neck HEENT: Supple, no lymphadenopathy, no thyroid enlargement, no carotid bruits. Lungs: Clear to auscultation without crackles or wheezes no rhonchi, no deformity. Chest Wall: Chest wall normal expansion with deep inspiration no tenderness and no deformity was found on exam, no costochondral pain or discomfort. Heart: Regular rate and rhythm, S1, S2 normal, no murmur, rub or gallop. Back: Symmetric, no curvature, ROM normal, no CVA tenderness. Abdomen: Soft, non-tender, bowel sounds active all four quadrants, no masses, no organomegaly. Extremities: Extremities normal, atraumatic, no cyanosis or edema. Pulses: 2+ and symmetric. Skin: Skin color, texture, tugor normal, no rashes or lesions. Neurologic: Alert oriented with slight confusion cranial nerves II through XII has slight effecting nerve VII on the right side intact, significant weakness in the right side severe abnormal balance, severe expression aphasia. - Labs CBC & Chem 7: 01/14/21 06:33 01/14/21 06:33 Labs: Abnormal Lab Results - Last 24 Hours (Table) 01/14/21 01/14/21 01/14/21 Range/Units 12:25 17:08 20:39 POC Glucose (mg/dL) 182 H 114 H 169 H (75-99) mg/dL 01/15/21 Range/Units 06:25 POC Glucose (mg/dL) 129 H (75-99) mg/dL Assessment and Plan Assessment: #1 acute left parietal hemorrhage no progression on the computed tomography scan noted since 01/08. Neuro checks 2-[address] head with no progression of the left parietal intraparenchymal hemorrhage. Avoid anticoagulation. #2 acute CVA with Broca aphasia, possible seizure will increase Keppra to 750 by mouth every 12 for neurology. EEG ordered carotid Doppler ordered. Lipid panel with LDL 55 HDL 39. Speech therapy PTOT consult. EEG is pending's morning #3 uncontrolled hypertension and hypertensive cardiovascular disease continue amlodipine, first night, lisinopril and metoprolol. Amlodipine increased to 10 mg daily: Systolic blood pressure less than 140 #4 coronary artery disease hold aspirin and continue atorvastatin, metoprolol #5 history of pacemaker likely sick sinus syndrome continue flecainide 50 mg by mouth every 12 #6 type 2 diabetes, uncontrolled continue Tradjenta 5 mg by mouth daily. Insulin sliding scale #7 severe aortic insufficiency with moderate aortic stenosis, stable #8 hyperlipidemia on atorvastatin 40 mg daily #9 chronic diastolic heart failure continue Lasix 20 by mouth twice a day. INR monitoring daily weights #10 osteoporosis stable #11 DVT prophylaxis heparin every 12 #12 GI prophylaxis Pepcid 20 mg twice a day #13 gout continue allopurinol 100 mg daily #Discharge planning: Continue PTOT and the family are agreeable once to do home care with home physical therapy. Which most likely will happen by tomorrow.
[2021-01-15] MEDS ORDERED: levETIRAcetam 250 MG TAB PO STA (11:28)
[2021-01-15 11:31] LABS: Glucose,Whole Blood 127 mg/dL (75-99)
--- NOTE | 2021-01-15 16:22 | P.PN ---
Subjective Progress Note Date: 01/15/21 The patient was seen at bedside and she stated that she's doing well today. She stated that she has an episode of slurring his speech yesterday early in afternoon which was short lasting. She feels she is back to her baseline. I asked the nurse about that event and she stated that she was not aware of it. Objective - Vital Signs Vital signs: Vital Signs Temp 97 F L 01/15/21 12:00 Pulse 60 01/15/21 12:00 Resp 18 01/15/21 14:00 BP 126/55 01/15/21 12:00 Pulse Ox 97 01/15/21 12:00 Intake & Output 01/14/21 01/15/21 01/15/21 18:59 06:59 18:59 Intake Total 720 960 Output Total 553 600 Balance 167 360 Weight 58.1 kg Intake: Oral 720 960 Output: Urine 552 600 Stool 1 Other: Voiding Method Toilet Toilet Toilet # Voids 1 - Exam GENERAL: The patient is lying in bed and is not in acute distress. NEUROLOGICAL: Higher mental function: The patient is awake, alert, oriented to self, place and time. Patient is following commands. Mild broca aphasia. No neglect. Cranial nerves: The pupils are round, equal and reactive to light and accommodation. Visual melo are full to confrontation throughout. Extraocular movement is intact no nystagmus is noted. Facial sensation is normal to touch throughout. The facial strength is normal throughout. Hearing is mildly to moderately decreased to hand rub. Tongue is midline and moved [id number] without any difficulty. Mild dysarthria is noted. Shoulder shrug is normal bilaterally. Motor: Gait is deferred. The strength is 5 over 5 throughout. Normal tone and bulk. Cerebellum: Normal finger to nose bilaterally. Sensation: Sensation is normal to touch throughout. Reflexes (right/left): 2+ throughout except ankles are 1+ bilaterally. Plantars are downgoing bilaterally. - Labs CBC & Chem 7: 01/14/21 06:33 01/14/21 06:33 Labs: Abnormal Lab Results - Last 24 Hours (Table) 01/14/21 01/14/21 01/15/21 Range/Units 17:08 20:39 06:25 POC Glucose (mg/dL) 114 H 169 H 129 H (75-99) mg/dL 01/15/21 Range/Units 11:25 POC Glucose (mg/dL) 127 H (75-99) mg/dL Assessment and Plan Assessment: This is an 89-year-old woman with medical history of small left parietal hemorrhage (01/08/21) that presented to the emergency department on 01/12/2021 for complete of speech difficulty (difficulty getting her words out) and bilateral upper extremity weakness but notified ED that she had weakness of arms. She had work-up at [facility] for small left parietal hemorrhage. Transient episode with difficulty getting her words out (broca aphasia) with bilateral upper extremity numbness and weakness. Seem like seizure due to small left parietal bleed (causing cortical irritability) and had transient repeated episodes. Cannot rule out TIA Small left parietal hemorrhage (01/08/2021) had work-up at [facility] Uncontrolled hypertension---improved Coronary artery disease History of pacemaker Diabetes mellitus Plan: I increased Keppra 500 mg 1 tablet twice a day to 750mg 1 tab bid. EEG on 01/14/2021: Abnormal routine EEG. The background slowing is suggestive of mild encephalopathy. There are no focal slowing, epileptiform discharges or seizure on EEG. The patient is not on any antiplatelets or anticoagulation. Patient is on Lipitor 10 mg daily. Lipitor 10 mg as continued that. Please avoid any antiplatelets or anticoagulation if possible since this bleed is fairly new within the last 1 week. Recommend to be placed on aspirin 81 mg starting next week since repeated CT of the head is stable. CT of the head is reported as no acute process. Stable-appearing left parietal lobe focus seen on the CT 4 days ago. She had repeat CT head because repeat episode: CT head which was reported as stable left parietal petechial hemorrhage is essentially unchanged. No new areas of hemorrhage are seen. CTA of the head and neck is reported as no significant diameter reduction to account for the patient's symptoms and no significant abnormality seen.. Cannot get MRI of the brain since the patient has a pacemaker. She is on Lipitor 10mg daily. Lipid panel as triglyceride of 203, cholesterol 135, LDL of 55 and HDL of 39. carotid duplex.: Some intimal thickening is present with atheromatous plaquing. No significant flow limiting stenosis by velocities is evident. Rest of the stroke workup is not needed since patient had recent workup and [facility]. We will try to obtain records from [facility]. PT and OT are consulted as well as SHOULDER SAWYER by the ED team. Continue normotensive blood pressure. The plan is discussed with the patient and patient's nurse. UPDATE: I spoke with the patient daughter (Xenia) via phone and she stated to her regarding the bleed that she had and was transferred to [facility] on 01/08/21, she stated that she had significant workup there and that her bleed was stable they initially started the patient on antiepileptic but they felt was making her worse according to the daughter but does not remember the name of that then that she was told that she does not need antiepileptic and was discharged without any antiepileptic drug. From a neurology perspective if the patient remains stable by tomorrow then she can be discharged and this was relayed to the daughter. I recommended the patient to follow-up with a neurologist as an outpatient within 1 week. Tor Fraire MD Neuro-Hospitalist Time with Patient: Less than 30
[2021-01-15 17:01] LABS: Glucose,Whole Blood 154 mg/dL (75-99)
[2021-01-15 20:03] LABS: Glucose,Whole Blood 180 mg/dL (75-99)
[2021-01-15] MEDS: ATORVASTATIN 10 MG TAB PO SCH (20:33)
[2021-01-16 04:57] VITALS: TEMP 98.1
[2021-01-16] MEDS: SODIUM CHLORIDE 0.9% 1,000 ML IV SCH (05:33)
[2021-01-16 06:14] LABS: Glucose,Whole Blood 127 mg/dL (75-99)
[2021-01-16] MEDS: INSULIN ASPART (NovoLOG) 100 UNIT/ML VIAL SQ SCH ×2 (06:55→12:09)
[2021-01-16] MEDS: FUROSEMIDE 20 MG TAB PO SCH (08:18)
[2021-01-16] MEDS: LINAGLIPTIN 5 MG TABLET PO SCH (08:18)
[2021-01-16] MEDS: ACETAMINOPHEN TAB 500 MG TAB PO SCH (08:18)
[2021-01-16] MEDS: HEPARIN SODIUM,PORCINE 5,000 UNIT/ML 1 ML VIAL SQ SCH (08:19)
[2021-01-16] MEDS: allopurinoL 100 MG TAB PO SCH (08:19)
[2021-01-16] MEDS: FAMOTIDINE 20 MG TAB PO SCH (08:19)
[2021-01-16] MEDS: amLODIPine 10 MG TAB PO SCH (08:19)
[2021-01-16] MEDS: lisinopriL 10 MG TAB PO SCH (08:19)
[2021-01-16] MEDS: levETIRAcetam 500 MG TAB PO SCH (08:19)
[2021-01-16] MEDS: FLECAINIDE 50 MG TAB PO SCH (08:19)
[2021-01-16] MEDS: METOPROLOL TARTRATE 50 MG TAB PO SCH (08:19)
--- NOTE | 2021-01-16 11:27 | P.DS ---
Providers Date of admission: 01/12/21 22:55 Attending physician: Shweta Boyd MD Consults: 01/12/21 22:56 Consult Physician Urgent Consulting Provider: Tor Fraire Consult Reason/Comments: TIA, stable left parietal hemorrhagic bleed Do you want consulting provider notified?: Already Contacted Primary care physician: Kathy Walker [facility] Course: Principal diagnosis: Hemorrhagic stroke, severe aphasia, weakness in the right arm, CAD, diabetes This is a pleasant 89-year-old patient of Dr. Walker with known history of CAD hypertension pacemaker device, diabetes mellitus type 2, systolic dysfunction, moderate aortic stenosis and moderate aortic regurgitation, hypertension follows with a bleacher [employer] [facility] Dr. Mark for which his her last visit was over a year ago was last admitted in September 2020 for chest pain last cardiac cath was in 2017, did not require any stents at that time came to the ER on 01/08 but complains of slurring of speech and left-sided weakness and was found to have a small left parietal bleed on CAT scan.CT angiogram of the head and neck reported no acute abnormality of the CTA. Patient is a moderate left and mild right proximal ICA stenosis. Patient was transferred to [facility] during the last ER visit. She had her workup done in [facility] and was discharged after 4 days. Patient is doing well until yesterday evening when she started having slurring of speech associated with numbness and tingling involving bilateral upper extremities. Repeat CAT scan was done in the ER they suggested stable left parietal petechial hemorrhage but appeared unchanged with no new area of new hemorrhage seen. CTA showed 50% reduction on the left proximal ICA and carotid bulb mild plaque deposition in the right common carotid and proximal ICA. Dr. Rubio, ER physician spoke to the neurology and intervention neurology team Dr. Vallejo who decided to keep the patient here and not be transferred to [facility]. Evaluation of the vitals in the ER, patient had above 97.7 pulse 57 respiratory rate 18 blood pressure 156/61 and oxygen saturation 98% room air. Her labs from yesterday suggest to WBC 9.4 hemoglobin 13.6, PT 19.6 PTT 21.7 BUN 27 creatinine 0.97 glucose ranging from 1:30 to 187 continue patient on amlodipine, lisinopril and metoprolol. Increase Norvasc to 10 mg by mouth daily 2/20: Patient continued to have significant expression aphasia, patient was seen Neurology agree with the current plan, EEG was performed today to exclude the possibility of seizure beside hemorrhagic stroke on thrombus. Otherwise patient is hemodynamically stable mobility still limited at this point patient to continue PTOT probably will require rehab for the next few weeks. 01/15: Patient is doing much better today, she had an episode yesterday was claim on seizure, her Keppra was increased up to 750 mg twice a day. Apparently Dr. Fraire and urology talk with the family about the plan for going home with phys ical therapy after this adjustment done most likely by tomorrow. Patient otherwise is doing well able to swallow appetite is good and she is doing slightly better with physical therapy. Objective - Vital Signs Vital signs: Vital Signs Temp 97.7 F 01/15/21 08:25 Pulse 63 01/15/21 08:25 Resp 16 01/15/21 08:25 BP 150/59 01/15/21 08:25 Pulse Ox 99 01/15/21 08:25 Intake & Output 01/14/21 01/15/21 01/15/21 18:59 06:59 18:59 Intake Total 720 480 Output Total 553 Balance 167 480 Weight 58.1 kg Intake: Oral 720 480 Output: Urine 552 Stool 1 Other: Voiding Method Toilet Toilet Toilet # Voids 1 - Exam Review of Systems Constitutional: Denies chills, Denies fever, Denies lethargy, Denies malaise, Denies poor appetite, Denies weakness, Denies weight loss Eyes: denies decreased vision, denies diplopia, denies discharge, denies pain Ears: deny: decreased hearing Ears, nose, mouth and throat: Denies dental pain, Denies headache, Denies nasal discharge, Denies nose pain Cardiovascular: Denies chest pain, Denies decreased exercise tolerance, Denies edema, Denies high blood pressure, Denies irregular heart beat, Denies palpitations, Denies paroxysmal nocturnal dyspnea, Denies rapid heart beat, Denies shortness of breath Respiratory: Denies congestion, Denies cough, Denies cough with sputum, Denies dyspnea, Denies home oxygen, Denies wheezing Gastrointestinal: Denies abdominal pain, Denies change in bowel habits, Denies coffee ground emesis, Denies early satiety, Denies excessive gas, Denies heartburn, Denies hematemesis, Denies hematochezia, Denies loss of appetite, Denies nausea, Denies vomiting Genitourinary: Denies dysuria, Denies flank pain, Denies kidney stones, Denies menorrhagia, Denies urgency, Denies urinary frequency Musculoskeletal: Denies gait dysfunction, Denies limitation of motion, Denies morning stiffness, Denies muscle cramps Integumentary: Denies rash, Denies wounds, Denies brittle nails, Denies change in hair/nails, Denies darkening of skin Neurological: Endorses balance difficulties, endorses change in speech, Denies double vision, endorses gait dysfunction, Denies loss of vision, Denies motor disturbance, endorses numbness of the left, Denies paralysis, Denies paresthesias, Denies seizures Psychiatric: Denies anxiety, Denies depression Endocrine: Denies excessive sweating, Denies excessive thirst, Denies high blood sugars, Denies palpitations Hematologic/Lymphatic: Denies easy bruising, Denies lymphadenopathy Physical examinations: General Appearance: Alert, cooperative, no distress, appears stated age. Neck HEENT: Supple, no lymphadenopathy, no thyroid enlargement, no carotid bruits. Lungs: Clear to auscultation without crackles or wheezes no rhonchi, no deformity. Chest Wall: Chest wall normal expansion with deep inspiration no tenderness and no deformity was found on exam, no costochondral pain or discomfort. Heart: Regular rate and rhythm, S1, S2 normal, no murmur, rub or gallop. Back: Symmetric, no curvature, ROM normal, no CVA tenderness. Abdomen: Soft, non-tender, bowel sounds active all four quadrants, no masses, no organomegaly. Extremities: Extremities normal, atraumatic, no cyanosis or edema. Pulses: 2+ and symmetric. Skin: Skin color, texture, tugor normal, no rashes or lesions. Neurologic: Alert oriented with slight confusion cranial nerves II through XII has slight effecting nerve VII on the right side intact, significant weakness in the right side severe abnormal balance, severe expression aphasia. - Labs CBC & Chem 7: 01/14/21 06:33 01/14/21 06:33 Labs: Abnormal Lab Results - Last 24 Hours (Table) 01/14/21 01/14/21 01/14/21 Range/Units 12:25 17:08 20:39 POC Glucose (mg/dL) 182 H 114 H 169 H (75-99) mg/dL 01/15/21 Range/Units 06:25 POC Glucose (mg/dL) 129 H (75-99) mg/dL Assessment and Plan Assessment: #1 acute left parietal hemorrhage no progression on the computed tomography scan noted since 01/08. Neuro checks 2-[address] head with no progression of the left parietal intraparenchymal hemorrhage. Avoid anticoagulation. #2 acute CVA with Broca aphasia, possible seizure will increase Keppra to 750 b y mouth every 12 for neurology. EEG ordered carotid Doppler ordered. Lipid panel with LDL 55 HDL 39. Speech therapy PTOT consult. EEG is pending's morning #3 uncontrolled hypertension and hypertensive cardiovascular disease continue amlodipine, first night, lisinopril and metoprolol. Amlodipine increased to 10 mg daily: Systolic blood pressure less than 140 #4 coronary artery disease hold aspirin and continue atorvastatin, metoprolol #5 history of pacemaker likely sick sinus syndrome continue flecainide 50 mg by mouth every 12 #6 type 2 diabetes, uncontrolled continue Tradjenta 5 mg by mouth daily. Insulin sliding scale #7 severe aortic insufficiency with moderate aortic stenosis, stable #8 hyperlipidemia on atorvastatin 40 mg daily #9 chronic diastolic heart failure continue Lasix 20 by mouth twice a day. INR monitoring daily weights #10 osteoporosis stable #11 DVT prophylaxis heparin every 12 #12 GI prophylaxis Pepcid 20 mg twice a day #13 gout continue allopurinol 100 mg daily #Discharge planning: Continue PTOT patient will be going home with [facility] home [facility]. Patient is stable to be discharged home today her Keppra was increased to 1000 g twice a day seems to do well with it so far apparently family with help of visiting nurse once to care for her at home at this point no subacute rehab is require so far the patient is very stable for discharge today. Patient Condition at Discharge: Stable Plan - Discharge Summary Discharge Rx Participant: No New Discharge Prescriptions: New levETIRAcetam [Keppra] 1,000 mg PO Q12HR #60 tab Continue Linagliptin [Tradjenta] 5 mg PO DAILY Acetaminophen [Tylenol Extra Strength] 500 mg PO BID allopurinoL [Zyloprim] 100 mg PO DAILY Atorvastatin [Lipitor] 10 mg PO HS Metoprolol Tartrate [Lopressor] 50 mg PO BID Flecainide [Tambocor] 50 mg PO Q12HR lisinopriL [Zestril] 10 mg PO BID Ferrous Sulfate [Iron (65 MG Elemental)] 325 mg PO Q48H amLODIPine [Norvasc] 5 mg PO DAILY Famotidine 20 mg PO BID Ergocalciferol [Vitamin D2 (DRISDOL)] 50,000 unit PO Q14D Furosemide [Lasix] 20 mg PO BID Discharge Medication List Acetaminophen [Tylenol Extra Strength] 500 mg PO BID 03/05/18 [History] Atorvastatin [Lipitor] 10 mg PO HS 03/05/18 [History] Flecainide [Tambocor] 50 mg PO Q12HR 03/05/18 [History] Linagliptin [Tradjenta] 5 mg PO DAILY 03/05/18 [History] Metoprolol Tartrate [Lopressor] 50 mg PO BID 03/05/18 [History] allopurinoL [Zyloprim] 100 mg PO DAILY 03/05/18 [History] lisinopriL [Zestril] 10 mg PO BID 06/12/20 [History] Ergocalciferol [Vitamin D2 (DRISDOL)] 50,000 unit PO Q14D 10/21/20 [History] Famotidine 20 mg PO BID 10/21/20 [History] Ferrous Sulfate [Iron (65 MG Elemental)] 325 mg PO Q48H 10/21/20 [History] amLODIPine [Norvasc] 5 mg PO DAILY 10/21/20 [History] Furosemide [Lasix] 20 mg PO BID 01/08/21 [History] levETIRAcetam [Keppra] 1,000 mg PO Q12HR #60 tab 01/16/21 [Rx] Follow up Appointment(s)/Referral(s): Kathy Walker DO [Primary Care Provider] - 1-2 days [facility] Visiting Nurse, [NON-STAFF] - Discharge Disposition: HOME WITH HOME HEALTH SERVICES
[2021-01-16 11:47] LABS: Glucose,Whole Blood 152 mg/dL (75-99)
[2021-01-16 12:42] VITALS: BP 121/48; PULSE 60; RESP 17
[2021-01-17] MEDS ORDERED: FAMOTIDINE 20 MG TAB PO SCH (09:00)
[2021-01-17] MEDS ORDERED: NON FORMULARY DRUG (Ergocalciferol 50,000 UNIT Cap) PO SCH (09:00)
--- NOTE | 2021-01-18 08:00 | CDI ---
Documentation Clarification Form Date: 01/18/2021 07:58:00 AM From: Leah Robbins CCS Phone: If you have a question about this query, please contact Jodi Wang [employer] Engineer at [phone] between 8am and 5pm Admit Date: 01/12/2021 10:55:00 PM Patient Name: Abiola Lassiter Visit Number: [id number] Discharge Date: 01/16/2021 02:30:00 PM ATTENTION: The Clinical Documentation Specialists (CDI) and [facility] Coding Staff appreciate your assistance in clarifying documentation. Please respond to the clarification below the line at the bottom and electronically sign. The CDI & [facility] Coding staff will review the response and follow-up if needed. Please note: Queries are made part of the Legal Health Record. If you have any questions, please contact the author of this message via ITS. Dr. Jose Frederick Conflicting documentation has been found in the medical record: Neuro Consult documents: Transient episode with difficulty getting her words out (broca aphasia) with bilateral upper extremity numbness and weakness.Seem like seizure due to small left parietal bleed (causing cortical irritability).Cannot rule out TIA Small left parietal hemorrhage (01/08/2021) had work-up at [facility] DS documents: #1 acute left parietal hemorrhage no progression on the computed tomography scan noted since 01/08.Neuro checks 2-[address] head with no progression of the left parietal intraparenchymal hemorrhage.Avoid anticoagulation. #2 acute CVA with Broca aphasia, possible seizure will increase Keppra to 750 by mouth every 12 for neurology.EEG ordered carotid Doppler ordered.Lipid panel with LDL 55 HDL 39.Speech therapy PTOT consult.EEG is pending's morning History/Risk Factors: Parietal hemorrhage, CHF, SSS, HTN, DM, CAD Clinical Indicators: Broca aphasia, Weakness of arms CT: IMPRESSION: 1.No acute process. 2.Stable-appearing left parietal lobe focus seen on the CT 4 days ago. EEG: CLINICAL INTERPRETATION: This is an abnormal routine EEG.The background slowing is suggestive of mild encephalopathy.There are no focal slowing, epileptiform discharge or seizure on the EEG Treatment: Neuro workup, Keppra 1,000 mg IV ONCE, Keppra 1,000 mg PO, Heparin 5,000 unit SQ Q12HR In your opinion, what is the most clinically appropriate diagnosis for this patient? xx Admitting symptoms due to previously diagnosed Parietal hemorrhage Admitting symptoms due to new acute CVA Admitting symptoms due to TIA xx Admitting symptoms due to seizure Other explanation of clinical findings Unable to determine (no explanation for clinical findings) MTDD
== END 2021-01-16 14:30 | disposition home health service (06) | DRG 65 ==
LOC: EC 20:46 → 3SCARD 22:55
PROVIDERS: ADMIT Internal Medicine; ATTEND Internal Medicine
DX: I61.1 Nontraumatic intracerebral hemorrhage in hemisphere, cortical (principal); I50.32 Chronic diastolic (congestive) heart failure; G81.94 Hemiplegia, unspecified affecting left nondominant side; R47.01 Aphasia; I49.5 Sick sinus syndrome; I11.0 Hypertensive heart disease with heart failure; R56.9 Unspecified convulsions; G93.89 Other specified disorders of brain; E11.65 Type 2 diabetes mellitus with hyperglycemia; Z20.822 Contact with and (suspected) exposure to COVID-19; E78.5 Hyperlipidemia, unspecified; M10.9 Gout, unspecified; I25.10 Atherosclerotic heart disease of native coronary artery without angina pectoris; I65.23 Occlusion and stenosis of bilateral carotid arteries; I35.2 Nonrheumatic aortic (valve) stenosis with insufficiency; M81.0 Age-related osteoporosis without current pathological fracture; I83.90 Asymptomatic varicose veins of unspecified lower extremity; R29.810 Facial weakness; Z79.899 Other long term (current) drug therapy; Z79.84 Long term (current) use of oral hypoglycemic drugs; Z79.82 Long term (current) use of aspirin; Z90.49 Acquired absence of other specified parts of digestive tract; Z95.0 Presence of cardiac pacemaker; Z98.42 Cataract extraction status, left eye; Z98.41 Cataract extraction status, right eye; Z88.8 Allergy status to other drugs, medicaments and biological substances; Z82.49 Family history of ischemic heart disease and other diseases of the circulatory system; Z80.9 Family history of malignant neoplasm, unspecified
CPT/HCPCS: 36415; 70450; 70496; 70498; 71046; 80053; 80061; 82550; 84484; 85025; 85610; 85730; 87635; 93005; 93880; 95819; 99291

== ENCOUNTER → 2021-02-07 | Outpatient (CLI) | payer MEDICARE, BC | END | disposition home or self-care (01) | LOC: LABWHC1 16:06 | PROVIDERS: ATTEND Psychiatry & Neurology Neurology | DX: R56.9 Unspecified convulsions (principal) | CPT/HCPCS: 36415; 80177 ==

== ENCOUNTER → 2021-03-15 | Outpatient (CLI) | payer MEDICARE, BC ==
--- NOTE | 2021-03-15 11:11 | CT ---
EXAMINATION TYPE: CT brain wo con DATE OF EXAM: 03/15/2021 HISTORY: History of hemorrhagic stroke with residual hemiparesis CT DLP: 909.40 mGycm. Automated Exposure Control for Dose Reduction was Utilized. TECHNIQUE: CT scan of the head is performed without contrast. COMPARISON: CT brain January 13, 2021. FINDINGS: There is no new acute intracranial hemorrhage or midline shift identified. There is moder ate diffuse ventricular and sulcal prominence consistent with diffuse age-related cerebral atrophy. There is moderate low-attenuation in the periventricular white matter consistent with chronic small v essel ischemic change. The globes are intact and the visualized sinuses are clear. Patchy cerumen left external auditory canal is redemonstrated. Vascular calcification distal internal carotid arteri es bilaterally. IMPRESSION: No new acute intracranial hemorrhage or midline shift. There is moderate diffuse age-re lated cerebral atrophy and chronic small vessel ischemic change redemonstrated. Interval resolution of the acute left sided hemorrhage from prior.
== END | disposition home or self-care (01) ==
LOC: RADCTMAIN 10:25
PROVIDERS: ATTEND Psychiatry & Neurology Neurology
DX: I69.359 Hemiplegia and hemiparesis following cerebral infarction affecting unspecified side (principal); I67.82 Cerebral ischemia
CPT/HCPCS: 70450